=== PATIENT | female | born 1935 | race Caucasian/White ===

== ENCOUNTER 2016-09-30 19:08 | Emergency (ER) | payer MEDICARE, OTHER ==
[2016-09-30 19:34] VITALS: BP 159/85
--- NOTE | 2016-09-30 20:14 | UC ---
Cardiac HPI - HPI Summary HPI Summary: WOKE UP THIS MORNING FEELING DIZZY/LIGHTHEADED. HAS THROBBING FRONTAL JAMA, NECK PAIN, UPPER BACK PAIN AND LEFT ARM PAIN. DENIES CP. NO NAUSEA OR SOB. HAS NOT EATEN MUCH TODAY AT ALL. HAD SOME BLURRY VISION AND SWEATS INITIALLY THAT HAVE RESOLVED. - History of Current Complaint Chief Complaint: UCGeneralIllness Stated Complaint: PAIN Time Seen by Provider: 09/30/16 20:04 Hx Obtained From: Patient Onset/Duration: Sudden Onset, Lasting Hours, Still Present Timing: Constant Initial Severity: Moderate Current Severity: Moderate Pain Intensity: 5 Aggravating: Nothing Alleviating: Nothing Associated Signs & Symptoms: Positive: Vision Changes, Headaches, Dizziness, Back Pain. Negative: Chest Pain, Nausea/Vomiting - Allergy/Home Medications Allergies/Adverse Reactions: Allergies Allergy/AdvReac Type Severity Reaction Status Date / Time No Known Allergies Allergy Verified 12/12/12 11:53 Home Medications: Home Medications Cyclobenzaprine TAB* [Flexeril 10 MG TAB*] 09/30/16 [History] Diclofenac Sodium EC TAB* [Voltaren EC TAB*] 09/30/16 [History] PMH/Surg Hx/FS Hx/Imm Hx Endocrine History Of: Denies: Diabetes, Thyroid Disease, Hyperthyroidism, Hypothyroidism, Dyslipidemia Cardiovascular History Of: Denies: Cardiac Disorders, Hypertension, Pacemaker/ICD, Myocardial Infarction , Congestive Heart Failure, Atrial Fibrillation, Deep Vein Thrombosis, Bleeding Disorders Respiratory History Of: Denies: COPD, Asthma, Bronchitis, Pneumonia, Pulmonary Embolism GI/ History Of: Denies: Gastroesophageal Reflux, Ulcer, Gastrointestinal Bleed, Gall Bladder Disease, Kidney Stones, Diverticulitis, Renal Disease, Urosepsis Neurological History Of: Denies: TIA, CVA, Dementia, Seizures, Migraine Psychological History Of: Reports: Depression Denies: Anxiety, Bipolar Disorder, Schizophrenia, Post Traumatic Stress Disorder Cancer History Of: Denies: Lung Cancer, Colorectal Cancer, Breast Cancer, Prostate Cancer, Cervical Cancer Other History Of: Negative For: HIV, Hepatitis B, Hepatitis C, Anticoagulant Therapy - Surgical History Surgical History: None - Family History Known Family History: Positive: Cardiac Disease Negative: Hypertension - Social History Alcohol Use: None Substance Use Type: None Smoking Status (MU): Never Smoked Tobacco Review of Systems Constitutional: Negative Respiratory: Negative Cardiovascular: Negative Gastrointestinal: Negative Musculoskeletal: Myalgia Neurological: Headache, Other - DIZZY/LIGHTHEADED All Other Systems Reviewed And Are Negative: Yes Physical Exam Triage Information Reviewed: Yes Appearance: Well-Appearing, No Pain Distress, Well-Nourished Vital Signs: Initial Vital Signs Temp 98.1 F 09/30/16 19:26 Pulse 82 09/30/16 19:26 Resp 18 09/30/16 19:26 BP 159/85 09/30/16 19:26 Pulse Ox 96 09/30/16 19:26 Vital Signs Reviewed: Yes Eyes: Positive: Conjunctiva Clear ENT: Positive: Hearing grossly normal Neck: Positive: Supple, Nontender, No Lymphadenopathy Respiratory Exam: Normal Cardiovascular Exam: Normal Abdomen Description: Positive: Soft Musculoskeletal: Positive: No Edema Neurological: Positive: Alert Psychological: Positive: Age Appropriate Behavior Skin: Negative: rashes - Differential Diagnoses - Chest Pain Differential Diagnosis/HQI/PQRI: Acute UT, ACS, Chest Wall, Pulmonary Embolism - Clinical Impression Provider Diagnoses: DIZZY/JAMA/NECK PAIN/LEFT ARM PAIN - Physician Notifications Discussed Patient Care With: DR. PRESSLEY Time Discussed With Above Provider: 20:15 - TO [facility] BY PRIVATE CAR Discharge - Discharge Plan Condition: Stable Disposition: AGAINST MEDICAL ADVICE Referrals: Betsy Lofton MD [Primary Care Provider] -
== END 2016-09-30 20:25 | disposition left against medical advice (07) ==
LOC: UCEAST 19:08
DX: R42 Dizziness and giddiness (principal); R51 Headache; M54.2 Cervicalgia; M79.602 Pain in left arm
CPT/HCPCS: 93005; 99212; G0463

== ENCOUNTER 2016-09-30 20:42 | Emergency (ER) | payer MEDICARE, OTHER ==
[2016-09-30] MEDS ORDERED: Aspirin Low Dose CHEW TAB* 81 MG PO ONE (21:00)
[2016-09-30 21:20] LABS: Hematocrit 41 % (35-47); Hemoglobin 13.6 g/dl (12.0-16.0); Mean Corpuscular HGB Conc 33 g/dl (31-36); Mean Corpuscular Hemoglobin 29 pg (27-31); Mean Corpuscular Volume 88 fL (80-97); Mean Platelet Volume 8 um3 (7.4-10.4); Red Blood Count 4.64 10^6/ul (4.0-5.4); Red Cell Distribution Width 14 % (10.5-15); White Blood Count 7.5 10^3/ul (3.5-10.8)
--- NOTE | 2016-09-30 21:22 | ED ---
Carlos Woodson Erika, scribed for Markus Zhong MD on 09/30/16 at 2111 . Headache - HPI Summary HPI Summary: Patient is a 80-year-old female presenting to the ED with a CC of headache. Patient was sent to the ED from [facility]. Patient reports that she woke up with a headache this morning around 08:00. She states she felt well last night. She states pain was located in her head, as well as her neck, shoulders, arms, and down to her waist. Pain is described as pounding. Patient reports she was diaphoretic, and also had difficulty walking. Patient rested all day and tried taking hydrocodone and ibuprofen, which did help the pain. Pt takes hydrocodone for her postherpetic neuralgia. Currently, patient reports a slight headache and shoulder ache. - History Of Current Complaint Chief Complaint: EDHeadache Stated Complaint: HEADACHE/NECK AND LT ARM PAIN Time Seen by Provider: 09/30/16 20:54 Hx Obtained From: Patient Hx Last Menstrual Period: post menopausal Onset/Duration: Started hours ago, Still Present - much improved Currently Pain Is: Mild Allevating Factors: Medication - oxycodone and ibuprofen Associated Signs And Symptoms: Other (Noted In Comments) - diaphoresis, pain above waist to head - Allergies/Home Medications Allergies/Adverse Reactions: Allergies Allergy/AdvReac Type Severity Reaction Status Date / Time No Known Allergies Allergy Verified 09/30/16 20:50 PMH/Surg Hx/FS Hx/Imm Hx Endocrine/Hematology History: Denies: Hx Anticoagulant Therapy, Hx Diabetes, Hx Thyroid Disease Cardiovascular History: Denies: Hx Myocardial Infarction Respiratory History: Reports: Hx Seasonal Allergies History: Denies: Hx Kidney Stones, Hx Renal Disease Neurological History: Reports: Other Neuro Impairments/Disorders - Postherpetic neuralgia Denies: Hx Dementia, Hx Migraine, Hx Seizures, Hx Transient Ischemic Attacks (TIA) Psychiatric History: Reports: Hx Depression Denies: Hx Anxiety, Hx Schizophrenia, Hx Bipolar Disorder Infectious Disease History: No Infectious Disease History: Reports: Hx Shingles - treated Denies: History Other Infectious Disease, Traveled Outside the [place] in Last 30 Days - Family History Known Family History: Positive: Cardiac Disease Negative: Hypertension - Social History Alcohol Use: None Hx Substance Use: No Substance Use Type: Reports: None Hx Tobacco Use: No Smoking Status (MU): Never Smoked Tobacco Review of Systems Positive: Skin Diaphoresis Musculoskeletal: Other - reports difficulty walking Positive: Myalgia Positive: Headache All Other Systems Reviewed And Are Negative: Yes Physical Exam Triage Information Reviewed: Yes Vital Signs On Initial Exam: Initial Vitals Temp Pulse Resp BP Pulse Ox 97.7 F 74 18 159/84 100 09/30/16 20:47 09/30/16 20:47 09/30/16 20:47 09/30/16 20:47 09/30/16 20:47 Vital Signs Reviewed: Yes Appearance: Positive: Well-Appearing, No Pain Distress Skin: Positive: Warm Head/Face: Positive: Normal Head/Face Inspection. Negative: Temporal Artery Tenderness Eyes: Positive: EOMI, CLARENCE ENT: Positive: Hearing grossly normal Neck: Positive: Supple Respiratory/Lung Sounds: Positive: Clear to Auscultation, Breath Sounds Present Cardiovascular: Positive: RRR Abdomen Description: Positive: Nontender, Soft Bowel Sounds: Positive: Present Musculoskeletal: Positive: Strength/ROM Intact Neurological: Positive: Sensory/Motor Intact, Normal Gait Psychiatric: Positive: Affect/Mood Appropriate Diagnostics - Vital Signs Vital Signs Temp Pulse Resp BP Pulse Ox 09/30/16 20:47 97.7 F 74 18 159/84 100 - Laboratory Result Diagrams: 09/30/16 21:05 09/30/16 21:05 Lab Statement: Any lab studies that have been ordered have been reviewed, and results considered in the medical decision making process. - Radiology CXR Radiology Interpretation Completed By: Radiologist - IMPRESSION: FINDINGS CONSISTENT WITH COPD, NO EVIDENCE FOR ACUTE FINDING. - EKG 21:05 Cardiac Rate: NL - at 80 bpm EKG Rhythm: Sinus Rhythm Re-Evaluation - Re-Evaluation First Eval Re-Evaluation Time: 21:55 Change: Improved Comment: Discussed results. Patient will be discharged home at this time. Headache Course/Dx - Course Assessment/Plan: A 80 y/o F presents to the ED with a CC of body pain and headache. Patient's pain has significantly improved before arrival to the ED. EKG shows NSR. Blood work WNL. Patient will be discharged home with follow up from her PCP. - Diagnoses Provider Diagnoses: Muscle pain Discharge - Discharge Plan Condition: Stable Disposition: HOME Patient Education Materials: General Headache (ED), Musculoskeletal Pain (ED) Referrals: Betsy Lofton MD [Primary Care Provider] - Additional Instructions: Please follow up with your PCP The documentation as recorded by the Carlos barros Erika accurately reflects the service I personally performed and the decisions made by me, Markus Zhong MD.
[2016-09-30 21:36] LABS: Albumin 4.3 g/dL (3.2-5.2); Calcium 9.4 mg/dL (8.6-10.3); EGFR African American 94.7 (>60); EGFR Non-African American 73.6 (>60); Globulin 2.6 g/dL (2-4); Magnesium 2.3 mg/dL (1.9-2.7); Potassium 3.9 mmol/L (3.5-5.0); Total Bilirubin 0.5 mg/dL (0.2-1.0); Total Protein 6.9 g/dL (6.4-8.9)
--- NOTE | 2016-09-30 21:48 | RAD ---
INDICATION: Chest pain. COMPARISON: There are no prior studies available for comparison. TECHNIQUE: Dual-energy PA and lateral views of the chest were obtained. FINDINGS: The heart is within normal limits in size. Mediastinal and hilar contours appear within normal limits. The lungs are hyperinflated and clear. No pleural effusion or pneumothorax is seen. IMPRESSION: FINDINGS CONSISTENT WITH COPD, NO EVIDENCE FOR ACUTE FINDING.
[2016-09-30 22:29] VITALS: BP 172/80
== END 2016-09-30 22:30 | disposition home or self-care (01) ==
LOC: ED 20:42
DX: M79.1 Myalgia (principal); R51 Headache; R61 Generalized hyperhidrosis; R42 Dizziness and giddiness; M54.2 Cervicalgia; M79.602 Pain in left arm
CPT/HCPCS: 36415; 71020; 80053; 83605; 83735; 84484; 85025; 93005; 99283; A9270-GY

== ENCOUNTER 2016-10-07 09:41 | Inpatient (IN) | payer MEDICARE, OTHER ==
[2016-10-07] MEDS ORDERED: Labetalol IV* 5 MG/ML 20 ML VIAL IV PUSH ONE (10:05)
--- NOTE | 2016-10-07 10:14 | RAD ---
INDICATION: Neurologic changes COMPARISON: None TECHNIQUE: Noncontrast axial source images were acquired from the skull base to the vertex. FINDINGS: Ventricles/sulci: Cortical atrophy. Compression of the right lateral ventricle related to large intracerebral hemorrhage (see below). Small amount of intraventricular hemorrhage in the atria of the right lateral ventricle and occipital horns bilaterally. Patent basilar cisterns Brain parenchyma: 7.3 x 2.9 cm focus of intracerebral hemorrhage in the right temporal and frontal lobes with associated vasogenic edema. Small amount of adjacent subarachnoid hemorrhage. Intracranial hemorrhage: Intraventricular, subarachnoid and intracerebral hemorrhage as noted above. Extra-axial spaces: As above subarachnoid hemorrhage right cerebral hemisphere. Calvarium: There is no calvarial fracture or other calvarial abnormality. Scalp: There is no evidence of scalp or extracalvarial soft tissue abnormality. Paranasal sinuses/mastoid: The paranasal sinuses and mastoid air cells are clear. Other: None. IMPRESSION: Right intracerebral hemorrhage with associated mass effect as described. Subarachnoid and intraventricular hemorrhage is noted as well. Findings called to ED.
[2016-10-07 10:18] LABS: Hematocrit 40 % (35-47); Hemoglobin 13.2 g/dl (12.0-16.0); Mean Corpuscular HGB Conc 33 g/dl (31-36); Mean Corpuscular Hemoglobin 29 pg (27-31); Mean Corpuscular Volume 88 fL (80-97); Mean Platelet Volume 8 um3 (7.4-10.4); Red Cell Distribution Width 14 % (10.5-15); White Blood Count 12.4 10^3/ul (3.5-10.8)
[2016-10-07 10:21] LABS: Add Diff/Slide Review? Slide Review Added; Comments Flag Yes
[2016-10-07 10:33] LABS: Albumin 3.8 g/dL (3.2-5.2); BUN/Creatinine Ratio 40.3 (8-20); Calcium 9.2 mg/dL (8.6-10.3); EGFR African American 119.7 (>60); EGFR Non-African American 93.1 (>60); Globulin 2.9 g/dL (2-4); HDL Cholesterol 45.2 mg/dL; Potassium 3.1 mmol/L (3.5-5.0); Total Bilirubin 1.1 mg/dL (0.2-1.0); Total Protein 6.7 g/dL (6.4-8.9)
[2016-10-07 10:37] LABS: Troponin I 0.13 ng/mL (<0.04)
--- NOTE | 2016-10-07 10:46 | RAD ---
INDICATION: Intracranial hemorrhage COMPARISON: Chest x-ray September 30, 2016 TECHNIQUE: An AP portable view obtained at 1010 hours is submitted. FINDINGS: Bones/Soft Tissues: There are no acute bony findings. Cardiomediastinal: The heart is normal in size. There is uncoiling of the thoracic aorta. Lungs: There are no infiltrates. Pleura: There are no pleural effusions. Other: None IMPRESSION: NO ACTIVE DISEASE.
[2016-10-07] MEDS ORDERED: Mannitol 25% (12.5 GM) 50 ML* 12.5 GM/50 ML VIAL IV ONE (11:20)
[2016-10-07] MEDS ORDERED: Mannitol 25% (12.5 GM) 50 ML* 12.5 GM/50 ML VIAL ONE ×2 (11:22→13:02)
[2016-10-07] MEDS: KCL 10 MEQ/50 ML IVPREMIX* 10 MEQ/50 ML BAG IV SCH ×2 (11:58→15:29)
[2016-10-07 12:17] LABS: Urine Bacteria Absent (Absent); Urine Bilirubin Negative (Negative); Urine Glucose 1+(50 mg/dL) (Negative); Urine Nitrite Negative (Negative)
[2016-10-07] MEDS ORDERED: fentaNYL* 50 MCG/ML 2 ML VIAL (100 MCG VIAL) ONE ×3 (12:20→15:33)
[2016-10-07] MEDS ORDERED: ceFAZolin 2 GM PREMIX(*) 2 GM/50 ML BAG IVPB ONE (12:38)
[2016-10-07] MEDS ORDERED: Thrombin 5,000 UNITS* 1 APPLIC KIT - topical use - TOPICAL ONE (13:01)
[2016-10-07] MEDS ORDERED: Lidocaine 1% MPF wEPI 200,000* 30 ML SDV ONE (13:01)
[2016-10-07] MEDS ORDERED: Rocuronium* 10 MG/ML VIAL ONE ×2 (13:02→14:19)
[2016-10-07] MEDS ORDERED: Famotidine IV* 10 MG/ML 2 ML (20 mg) ONE (13:23)
[2016-10-07] MEDS ORDERED: Lidocaine 2% PF * 5 ML VIAL ONE (13:23)
[2016-10-07] MEDS ORDERED: Propofol* 10 MG/ML 20 ML BTL IV PUSH ONE ×2 (13:23→14:16)
[2016-10-07] MEDS ORDERED: Phenylephrine IV* 40 MCG/ML 10 ML SYRINGE ONE (13:32)
--- NOTE | 2016-10-07 14:36 | ED ---
Ben Woodson Janilya, scribed for Garret Scherer MD on 10/07/16 at 0950 . Neurological HPI - HPI Summary HPI Summary: A 80 y/o female was BIBA to [facility] presenting w/ a sudden onset of constant stroke-like Sx starting last night at 2200. Pt is unresponsive and non-verbal. Per EMS, her stated that there is also left sided weakness, but otherwise pt is normally healthy. Pt although had shingles last week. LEVEL 5 CAVEAT UNABLE TO OBTAIN FULL HX DUE TO UNRESPONSIVE STATE OF PT. - History of Current Complaint Stated Complaint: STROKE LIKE SYMPTOMS Hx Obtained From: EMS Hx Last Menstrual Period: post menopausal Onset/Duration: Gradual Onset, Started hours ago - since yesterday at 2200 Timing: Constant Onset Severity: Moderate Current Severity: Moderate Aggravating: Nothing Alleviating: Nothing - Allergy/Home Medications Allergies/Adverse Reactions: Allergies Allergy/AdvReac Type Severity Reaction Status Date / Time No Known Allergies Allergy Verified 09/30/16 20:50 PMH/Surg Hx/FS Hx/Imm Hx Previously Healthy: Yes Endocrine/Hematology History: Denies: Hx Anticoagulant Therapy, Hx Diabetes, Hx Thyroid Disease Cardiovascular History: Denies: Hx Congestive Heart Failure, Hx Deep Vein Thrombosis, Hx Hypertension , Hx Myocardial Infarction, Hx Pacemaker/ICD Respiratory History: Reports: Hx Seasonal Allergies Denies: Hx Asthma, Hx Chronic Obstructive Pulmonary Disease (COPD), Hx Lung Cancer, Hx Pneumonia, Hx Pulmonary Embolism GI History: Denies: Hx Gall Bladder Disease, Hx Gastrointestinal Bleed, Hx Ulcer, Hx Urosepsis History: Denies: Hx Kidney Stones, Hx Renal Disease Neurological History: Reports: Other Neuro Impairments/Disorders - Postherpetic neuralgia Denies: Hx Dementia, Hx Migraine, Hx Seizures, Hx Transient Ischemic Attacks (TIA) Psychiatric History: Reports: Hx Depression Denies: Hx Anxiety, Hx Schizophrenia, Hx Bipolar Disorder Infectious Disease History: Reports: Hx Shingles - treated Denies: History Other Infectious Disease - Family History Known Family History: Positive: Cardiac Disease Negative: Hypertension - Social History Lives: With Family Alcohol Use: None Hx Substance Use: No Substance Use Type: Reports: None Hx Tobacco Use: No Smoking Status (MU): Never Smoked Tobacco Review of Systems - ROS Summary Review of Systems Summary: LEVEL 5 CAVEAT UNABLE TO OBTAIN FULL HX DUE TO UNRESPONSIVE STATE OF PT. Neurological: Other - unresponsive and non-verbal Positive: Weakness - left sided All Other Systems Reviewed And Are Negative: Yes Physical Exam - Summary Physical Exam Summary: Vital signs: reviewed General: Patient BIB EMS. Patient is non verbal. Patient does not respond to verbal commands. HEENT: PERRLA Lungs: CTA B/L CVS: S1 & S2 present. No murmurs appreciated. ABDOMEN: Soft, non distended. Bowel sounds present. EXTREMITIES: No edema, no cyanosis or clubbing. NEURO: non responsive, non verbal. NIH is 23. SKIN: Dry and warm Triage Information Reviewed: Yes Vital Signs Reviewed: Yes Diagnostics - Laboratory Result Diagrams: 10/07/16 09:41 10/07/16 09:41 Lab Statement: Any lab studies that have been ordered have been reviewed, and results considered in the medical decision making process. - Radiology CXR Xray Interpretation: No Acute Changes - IMPRESSION: No active disease. Radiology Interpretation Completed By: Radiologist - CT brain CT Interpretation: Positive (See Comments) - IMPRESSION: Right intracerebral hemorrhage with associated mass effect as described. Subarachnoid and intraventricular hemorrhage is noted as well. CT Interpretation Completed By: Radiologist - EKG 0935 Cardiac Rate: NL - 73 bpm EKG Rhythm: Sinus Rhythm ST Segment: Normal Ectopy: PVCs 0945 Cardiac Rate: NL - 74 bpm EKG Rhythm: Sinus Rhythm ST Segment: Normal NIH Scale - NIH Scale Level of Consciousness: Repeated or Painful Stimulation Ask Patient the Month and His/Her Age: Neither Correct/Aphasic Ask Pt to Open/Close Eyes and Manager Electrical/Release Non-Paretic Hand: Neither Correctly Best Gaze (Only Horizontal Eye Movement): Normal Visual Field Testing: No Visual Loss Facial Paresis-Pt to Smile & Close Eyes or Grimace Symmetry: Normal/Symmetrical Motor Function - Right Arm: No Drift-Holds 10 Seconds Motor Function - Left Arm: No Effort Against [place] Motor Function - Right Leg: No Drift-Holds 10 Seconds Motor Function - Left Leg: No Effort Against [place] Limb Ataxia-Must be out of Proportion to Weakness Present: Present in Two Limbs Sensory (Use Pinprick to Test Arms/Legs/Trunk/Face): Severe to Total Loss Best Language (Describe Picture, Name Items): Mute/Global Aphasia Dysarthria (Read Several Words): Unintelligible or Mute Extinction and Inattention: Profound Stephan-Inattention Total Score: 23 Course/Dx - Course Assessment/Plan: A 80 y/o female was BIBA to [facility] presenting w/ a sudden onset of constant stroke-like Sx starting last night at 2200. Pt is unresponsive and non-verbal. Per EMS, her stated that there is also left sided weakness , but otherwise pt is normally healthy. Pt although had shingles last week. LEVEL 5 CAVEAT UNABLE TO OBTAIN FULL HX DUE TO UNRESPONSIVE STATE OF PT. Initially we obtained a IV access and immediately patient was send to Head CT. Patient is unresponsive but and BP is 182/[address] showed a Hemorrhagic bleed. IMPRESSION: Right intracerebral hemorrhage with associated mass effect as described. Subarachnoid and intraventricular hemorrhage is noted as well. He was given Labetalol to decrease BP. Blood pressure right now is 128/55. Patient is maintaining her airway to this point. Dr. Cabrera is discussing with patients prognosis and decision to intubate or not. Blood work shows an increase in WBCs of 12.4, Na 131, K 3.1, troponin 0.13. EKG with NSR at 74 BPM, Q waves in III and AVF. Hyperacute T waves. Dr. Cabrera order Mannitol. I discuss my physical exam, findings and test results with Dr. Jones from the hospitalist services and she agrees to admit patient to his services. Patient is hemodynamically stable alert and oriented x 3. Dr. Cabrera is taking patient to the OR for further management. He request for the patient to be intubated in the OR. Patient still hemodynamically stable but still unresponsive. - Differential Dx Differential Diagnoses Neuro: Positive: Cerebrovascular Accident, Contusion, Encephalitis, Hypertension, Seizure Disorder, Transient Ischemic Attack - Diagnoses Provider Diagnoses: Hemorrhagic cerebrovascular accident (CVA), Uncontrolled hypertension - Physician Notifications Discussed Care of Patient With: Dr. Cabrera (neuro surg) at 1020: discussed brain CT results and next course of action. Dr. Jones (hospitalist) at 1058: agrees to admit pt into hospital. Discharge - Discharge Plan Condition: Guarded Disposition: ADMITTED TO [facility] Referrals: Betsy Lofton MD [Primary Care Provider] - The documentation as recorded by the Ben barros Janilya accurately reflects the service I personally performed and the decisions made by me, Garret Scherer MD.
[2016-10-07] MEDS ORDERED: Propofol* 100 ML ONE (14:50)
[2016-10-07] MEDS ORDERED: hydrALAZINE IV* 20 MG/ML VIAL IV SLOW PU ONE (14:51)
[2016-10-07] MEDS ORDERED: Ondansetron INJ* 2 MG/ML VIAL IV PRN (14:58)
[2016-10-07] MEDS ORDERED: Sodium Chloride 3% HYPERTONIC* 500 ML IVPB SCH (15:00)
[2016-10-07] MEDS ORDERED: hydrALAZINE IV* 20 MG/ML VIAL ONE (15:17)
[2016-10-07] MEDS: niCARdipine 0.1MG/ML IVPREMIX* 20 MG/200 ML BAG IV SCH ×2 (15:30→20:26)
--- NOTE | 2016-10-07 15:55 | PN ---
Progress Note - Progress Note Note: CRITICAL CARE MEDICINE PROCEDURE NOTE DATE: 10/07/16 TIME: 1500 SERVICE: Critical Care Medicine LOCATION OF PROCEDURE: ICU PROCEDURE: Central line insertion PROCEDURALIST: Pattie Leary Consent obtain: Yes (pts Duy Soriano gave verbal consent) Time out held: Yes INDICATION: ICH, intubated needing hypertonic saline and access. PROCEDURE: Oxygenation maintained and vitals monitored. Patient in supine position at 10 degrees. Pre-medication already post OR. SITE: LEFT Subclavian Site preparation with chlorhexidine locally. Full sterile drape, gown, hat, mask, gloves. 5ml 1% Lidocaine utilized at incision site. Standard sterile Seldinger technique utilized via ultrasound guidance and catheter was inserted to 16cm and sutured in place. Good blood return. Minimal blood loss. Site dressed with tegaderm. Portable chest x-ray pending. Patient otherwise tolerated well. Dr. Faust performed the procedure, I was present and participated in the critical portions. [place] Blankenship, DO
--- NOTE | 2016-10-07 16:18 | PN ---
Progress Note - Progress Note Note: CRITICAL CARE MEDICINE DATE: 10/07/16 TIME: 1430 REFERRING PROVIDER: Rick REASON/CHIEF COMPLAINT: post crani and clot evac sec to ich HISTORY OF PRESENT ILLNESS: 80 F with little medical history with c/o padilla and less responsiveness last pm and and then worse this am. Recently eval for padilla. on felxeril, diclofenac, vicodin per records. Presenting to ED with cva sx, head ct with large R ICH associated mass affect, sah, ivh and taken urgently to the OR for evac. Given mannitol and anai placed. Torrey procedure well. Noted high BP on arrival and through much of procedure getting intermittent tx. In ICU post ICP ~5-6. Sedated. Received recent paralytic. sync with vent. pupils reactive. REVIEW OF SYSTEMS: As per HPI. PAST MEDICAL HISTORY: As per HPI. MEDICATIONS: Reviewed, but unconfirmed. ALLERGIES: NKDA SOCIAL HISTORY: Reviewed. lives with . active. FAMILY HISTORY: Noncontributory at present. PHYSICAL EXAM: Vital Signs: Reviewed. Neurologic: as above. post paralytics now. HEENT: anicteric. ett in place. Cardiovascular: S1, S2 lakes[place] Respiratory: coarse but clear bl; tv 450; fio2 50% Abdomen: soft. nt Extremities: warm Access: piv LABS: Reviewed. IMAGING: Reviewed. MEDICATIONS: Reviewed. ASSESSMENT: 80 F Acute ICH - ?htn vs amyloid angiopathy. Htn now Mild elevated troponin - may be central related Post op, non-thoracic, resp failure PLAN: Neurologic: keep sedated overnight with propofol. follow neuro checks and can hold prop for these entities. prn low dose fent. nsgy f/u. ct f/u. Place on 3% as she is already hypoNa and would like to see this come up to 140s overnight and may push up to much above upper limit normal depending on neuro exam and ct in this early phase. Received mannitol already pre-or and would prefer 3% use as needed and reserve mannitol. Would like HOB 30 degrees Cardiovascular: look to control BP better to avoid any re-bleeds. Start cardene gtt and maintain SBP <140, greater then 100. if requires a lot of prop or cardene, can add hydralazine prn and consider po needs, +/- precedex. would obtain echo for her cva workup all the same. Respiratory: maintained on ventilation and allow paralytics to dissipate and spont breathing as able. etco2. may need abg if not triggering. may take a day or so to determine liberation potentials Gastrointestinal: ogt. sup. start tf tomorrow depending on her dynamics. Renal/Metabolic: ziegler. Na as above. Infectious Disease: no needs Hematology: f/u cbc. scds, no chemical prophylaxis yet Endocrine: f/u glu Musculoskeletal: will need pt when participating. Psych/Social: updated. social work eval Supportive and preventative care as ordered. SUP: ppi VTE prophylaxis: scds; ich Ziegler catheter given critical illness, monitoring needs for accurate assessment of COLBY and KDIGO criteria for critically ill patients and to avoid potential harms of urinary retention, skin breakdown/ulcers. Disposition: ICU Code Status: Full Critical Care Time: 65min, excl procedures D/w Dr. Rick Blankenship, DO
[2016-10-07] MEDS ORDERED: NS 0.9% 1000 ML* 1,000 ML IV SCH (16:30)
[2016-10-07] MEDS ORDERED: fentaNYL* 50 MCG/ML 2 ML VIAL (100 MCG VIAL) IV SLOW PU ONE (16:30)
--- NOTE | 2016-10-07 16:46 | RAD ---
INDICATION: Left central line placement COMPARISON: [id number] TECHNIQUE: An AP supine portable view obtained at 1627 hours is submitted. FINDINGS: Bones/Soft Tissues: There are no acute bony findings. There is an endotracheal tube in satisfactory position. Nasogastric tube passes normally through the mediastinum. There is a left subclavian catheter in the superior vena cava near the brachiocephalic confluence Cardiomediastinal: The cardiomediastinal silhouette is normal. Lungs: There are no infiltrates. There is no pneumothorax. Pleura: There are no pleural effusions. Other: None IMPRESSION: TUBES AND CATHETERS POSITIONED DESCRIBED
[2016-10-07] MEDS: Chlorhexidine MOUTHWASH 0.12%* 15 ML UDC TOPICAL SCH ×3 (17:30→20:26)
[2016-10-07] MEDS: Propofol* 100 ML IV SCH ×2 (18:48→23:29)
[2016-10-07] MEDS: fentaNYL* 50 MCG/ML 2 ML VIAL (100 MCG VIAL) IV SLOW PU PRN ×2 (21:04→23:30)
[2016-10-07 22:12] LABS: Troponin I 0.05 ng/mL (<0.04)
[2016-10-07] MEDS ORDERED: Sodium Chloride 3% HYPERTONIC* 500 ML IVPB ONE (23:30)
[2016-10-08] MEDS: niCARdipine 0.1MG/ML IVPREMIX* 20 MG/200 ML BAG IV SCH ×8 (00:54→23:16)
[2016-10-08] MEDS: Chlorhexidine MOUTHWASH 0.12%* 15 ML UDC TOPICAL SCH ×6 (01:30→22:10)
[2016-10-08] MEDS: Acetaminophen ADULT LIQ* 650 MG/20.3 ML UDC PO PRN ×2 (02:29→15:49)
[2016-10-08] MEDS: Propofol* 100 ML IV SCH ×3 (03:08→20:47)
[2016-10-08 05:19] LABS: Hematocrit 30 % (35-47); Hemoglobin 10.6 g/dl (12.0-16.0); Mean Corpuscular HGB Conc 35 g/dl (31-36); Mean Corpuscular Hemoglobin 30 pg (27-31); Mean Corpuscular Volume 87 fL (80-97); Mean Platelet Volume 7 um3 (7.4-10.4); Red Blood Count 3.49 10^6/ul (4.0-5.4); Red Cell Distribution Width 14 % (10.5-15); White Blood Count 9.4 10^3/ul (3.5-10.8)
[2016-10-08] MEDS: fentaNYL* 50 MCG/ML 2 ML VIAL (100 MCG VIAL) IV SLOW PU PRN ×2 (05:22→20:32)
[2016-10-08 05:38] LABS: BUN/Creatinine Ratio 40.4 (8-20); Calcium 8.1 mg/dL (8.6-10.3); EGFR African American 164.8 (>60); EGFR Non-African American 128.2 (>60); Phosphorus 1.9 mg/dL (2.5-5.0); Potassium 2.9 mmol/L (3.5-5.0)
[2016-10-08 05:44] LABS: Troponin I 0.04 ng/mL (<0.04)
--- NOTE | 2016-10-08 06:12 | RAD ---
INDICATION: Follow-up of right frontal craniotomy for intracerebral hemorrhage. COMPARISON: CT brain October 07, 2016 TECHNIQUE: Noncontrast axial source images were acquired from the skull base to the vertex. FINDINGS: Ventricles/sulci: The compression of the right lateral ventricle has resolved post hematoma evacuation. Brain parenchyma: Interval evacuation of large right intracerebral hematoma. Small amount of residual hemorrhage. Drainage catheter within residual collection. Small amount of pneumocephalus. There is no significant subcutaneous falcine shift. There is localized mass effect with sulcal effacement in the right cerebral hemisphere. Intracranial hemorrhage: As above, small amount of residual intracerebral hemorrhage. Extra-axial spaces: There are no abnormal extra axial fluid collections or evidence of extra-axial mass. Calvarium: Right frontal calvarial defect. Scalp: There is no evidence of scalp or extracalvarial soft tissue abnormality. Paranasal sinuses/mastoid: The paranasal sinuses and mastoid air cells are clear. Other: None. IMPRESSION: Evacuation of right cerebral intraparenchymal hematoma with placement of drainage catheter. Small amount of residual hemorrhage and pneumocephalus.. Marked reduction in mass effect.
[2016-10-08] MEDS: KCL 20 MEQ/100 ML IVPREMIX* 20 MEQ/100 ML BAG IV SCH ×2 (07:56→09:40)
[2016-10-08] MEDS: Lansoprazole SOLUTAB* 30 MG G TUBE SCH (09:24)
--- NOTE | 2016-10-08 09:25 | ECHO ---
Patient: SAM WIGGINS [facility] Rec#: [id number] : 1935 Date: 10/08/2016 Age: 80y Height: 167.6 cm / 66.0 in Weight: 61.2 kg / 134.9 lbs Sex: F BSA: 1.7 Room#: ICU 3 Admit Date#: 10/07/2016 Type: Inpatient Referring: Domingo Blankenship Reading: Rad Padilla MD Fur Comber: Radha Mccrary RN RDCS CC: Betsy Lofton MD Transthoracic Echocardiogram Indication: Hemorrhagic CVA, elevated troponin levels BP: 120/55 HR: 71 Rhythm: NSR with PVCs Findings History: Recent Shingles, post-herpetic neuralgia, currently admitted with large right ICH S/P evacuation in the OR. The patient is on mechanical ventilation and a Cardene drip during the echo exam. Technical Comments: The study was technically limited due to the patient's inability to lay in the left lateral decubitus position. The study is technically limited due to patient being intubated and on a ventilator. Completed at 0910. Left Ventricle: The left ventricular chamber size is decreased. Mild concentric left ventricular hypertrophy is observed. There is a prominent septal knuckle. Global left ventricular wall motion and contractility are within normal limits. The left ventricle appears hyperdynamic. The estimated ejection fraction is greater than 65%. There is an E to A reversal in the mitral valve flow pattern suggestive of diastolic dysfunction. Left Atrium: The left atrial chamber size is normal. Right Ventricle: The right ventricular chamber size and systolic function are within normal limits. The right ventricle wall thickness is mildly increased. Right Atrium: The right atrial cavity size is normal. There is evidence of an atrial septal aneurysm. No PFO noted on color flow interrogation. Aortic Valve: The aortic valve structure is not well visualized. The aortic valve leaflets are mildly thickened. There is no evidence of aortic regurgitation. There is no evidence of aortic stenosis. Mitral Valve: The mitral valve leaflets are mildly thickened. There is a trace of mitral regurgitation. Tricuspid Valve: The tricuspid valve leaflets are normal. There is mild to moderate tricuspid regurgitation. There is evidence of mild to moderate pulmonary hypertension. Pulmonic Valve: The pulmonic valve structure is not well visualized. There is no evidence of pulmonic regurgitation. There is no pulmonic stenosis. Pericardium: There is no significant pericardial effusion. A pericardial fat pad is visualized. Aorta: There is no dilatation of the ascending aorta. There is no dilatation of the aortic arch. The aortic root is normal in size. Pulmonary Artery: The main pulmonary artery is not well visualized. Venous: Unable to accurately comment on the size collapsibility of the IVC as the patient in known to be on mechanical ventilation. Conclusions The left ventricle appears hyperdynamic. The estimated ejection fraction is greater than 65%. Global left ventricular wall motion and contractility are within normal limits. The left ventricular chamber size is decreased. Mild concentric left ventricular hypertrophy is observed. There is an E to A reversal in the mitral valve flow pattern suggestive of diastolic dysfunction. There is mild to moderate tricuspid regurgitation. There is evidence of mild to moderate pulmonary hypertension. There is no prior echocardiogram available to compare with at this time. Measurements Name Value Normal Range RVDdMajor (2D) 3.1 cm (2.2 - 4.4) RVAW (2D) 0.7 cm (0.2 - 0.5) RAd ISD 4CH 4 cm (3.4 - 4.9) RA (A4C)W 3.4 cm (2.9 - 4.6) IVSd (2D) 1.3 cm (0.6 - 1) LVPWd (2D) 1.1 cm (0.6 - 1) LVIDd (2D) 3.4 cm (3.6 - 5.4) Aortic Annulus 2.6 cm (1.4 - 2.6) Ao root diameter (2D) 3.1 cm (2.1 - 3.5) Ascending Ao 3 cm (2.1 - 3.4) Aortic arch 2.4 cm (1.8 - 3.4) LA dimension (AP) 2D 3.1 cm (2.3 - 3.8) LAd ISD 4CH 4.5 cm (2.9 - 5.3) LA ISD 4CH W 3.2 cm (2.5 - 4.5) Name Value Normal Range LA ESV SP 4CH (A/L) 39 ml - LA ESV SP 2CH (A/L) 32 ml - LA ESV BP (A/L) 36 ml - LA ESV BP (A/L) index 21.2 ml/m2 - LA ESV SP 4CH (MOD) 37 ml - LA ESV SP 2CH (MOD) 29 ml - Name Value Normal Range MV E-wave Vmax 0.76 m/sec - MV deceleration time 311 msec - MV A-wave Vmax 1.2 m/sec - MV E:A ratio 0.7 ratio - LV septal e' Vmax 0.06 m/sec - LV lateral e' Vmax 0.06 m/sec - LV E:e' septal ratio 12.7 ratio - LV E:e' lateral ratio 12.7 ratio - Name Value Normal Range AV Vmax 1.8 m/sec - AV VTI 37.2 cm - AV peak gradient 13 mmHg - AV mean gradient 9 mmHg - LVOT Vmax 1.3 m/sec - LVOT VTI 29.8 cm - LVOT peak gradient 7 mmHg - LVOT mean gradient 5 mmHg - EDNA Vmax 0.85 m/sec - Name Value Normal Range TR Vmax 2.9 m/sec - TR peak gradient 34 mmHg - RAP 8 mmHg - RVSP 42 mmHg - IVC diameter 2 cm - Name Value Normal Range PV Vmax 1.1 m/sec -
[2016-10-08] MEDS ORDERED: Potassium Phosphate IV* 20 MMOLE in NS 0.9% 250 ML* 250 ML IVPB ONE (09:26)
--- NOTE | 2016-10-08 09:46 | PN ---
Progress Note - Progress Note SOAP: Subjective: []POD # 1 Intubated,on diprivan ICP running 10-14 this am Objective: []F/U CT shows ventricles larger,good clot decompression Withdraws to pain Pupils equal Assessment: []Stable post op Plan: []Could likely wean and extubate Will need to follow ICP If it trends upward she may need ventricular drain Discussed with Dr. Vanessa
[2016-10-08] MEDS ORDERED: Sodium Chloride 3% HYPERTONIC* 500 ML IVPB SCH ×2 (10:30→14:51)
--- NOTE | 2016-10-08 11:12 | PN ---
Progress Note - Progress Note Note: CRITICAL CARE MEDICINE DATE: 10/08/16 TIME: 850 SUBJECTIVE: Patient seen and examined. PHYSICAL EXAM: Vital Signs: Reviewed. Neurologic: Propofol held and slow to wake up. withdrawal to pain and starting to move R side more. not opening eyes yet. pupils eq and reactive. HEENT: anicteric. ett in place. Cardiovascular: S1, S2 Respiratory: coarse. changed to cpap Abdomen: soft. nt Extremities: warm Access: piv LABS: Reviewed. IMAGING: Reviewed. MEDICATIONS: Reviewed. ASSESSMENT: 80 F Acute ICH - ?htn vs amyloid angiopathy. HTN Post op, non-thoracic, resp failure PLAN: Neurologic: CT reviewed - improved. d/w nsgy. prop held. await better neuro eval prior to vent liberation. keep 3%. if neuro exam stable would just aim for high normal na range. 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 keep hob 30degrees. Cardiovascular: cardene gtt still to maintain SBP <140, greater then 100. see what she requires after vent liberation. tte ok. troponin benign. Respiratory: cpap. needs to find her tongue prior to liberation. mechanics otherwise well. Gastrointestinal: ogt. sup. start tf later today if unable to liberate. Renal/Metabolic: ziegler. Na as above. Infectious Disease: no needs Hematology: f/u cbc. scds, no chemical prophylaxis yet Endocrine: f/u glu Musculoskeletal: pt when participating. Psych/Social: will look to update . Supportive and preventative care as ordered. SUP: ppi VTE prophylaxis: scds; ich Ziegler catheter given critical illness, monitoring needs for accurate assessment of COLBY and KDIGO criteria for critically ill patients and to avoid potential harms of urinary retention, skin breakdown/ulcers. Disposition: ICU Code Status: Full Critical Care Time: 35min D/w Dr. Rick Blankenship DO
--- NOTE | 2016-10-08 14:34 | PN ---
Progress Note - Progress Note Note: CRITICAL CARE MEDICINE DATE: 10/08/16 TIME: 1425 Slow to come around off sedation all day, but she is improving. Starting to follow commands on her R sided. Not moving left. Difficulty keeping her eyes open. ICP have been well. Family updated earlier on plans. Still pre-mature to liberate from vent today. Continued lyte correction, BP control and should hopefully be ready for early liberation tomorrow am. tf today. Code Status: Full Critical Care Time: 10min FLoree Blankenship DO
[2016-10-09] MEDS: Acetaminophen ADULT LIQ* 650 MG/20.3 ML UDC PO PRN ×2 (01:25→21:45)
[2016-10-09] MEDS: niCARdipine 0.1MG/ML IVPREMIX* 20 MG/200 ML BAG IV SCH ×5 (02:05→21:34)
[2016-10-09] MEDS: Chlorhexidine MOUTHWASH 0.12%* 15 ML UDC TOPICAL SCH ×3 (02:07→10:03)
[2016-10-09 05:34] LABS: Hematocrit 29 % (35-47); Mean Corpuscular HGB Conc 34 g/dl (31-36); Mean Corpuscular Hemoglobin 30 pg (27-31); Mean Corpuscular Volume 88 fL (80-97); Mean Platelet Volume 7 um3 (7.4-10.4); Red Blood Count 3.35 10^6/ul (4.0-5.4); Red Cell Distribution Width 14 % (10.5-15); White Blood Count 10.7 10^3/ul (3.5-10.8)
[2016-10-09 05:57] LABS: BUN/Creatinine Ratio 25.9 (8-20); Calcium 8.3 mg/dL (8.6-10.3); EGFR African American 140.4 (>60); EGFR Non-African American 109.2 (>60); Magnesium 2.1 mg/dL (1.9-2.7); Phosphorus 2.5 mg/dL (2.5-5.0)
[2016-10-09] MEDS: Propofol* 100 ML IV SCH ×2 (06:12→22:43)
--- NOTE | 2016-10-09 07:54 | PN ---
Progress Note - Progress Note SOAP: Subjective: []POD#2 More alert Moving right side well Minimal movement on left Objective: []Left hemiparesis ICP remaining down Pupils equal Assessment: []Stable post op Plan: []Hopefully extubated this AM Will get f/u CT in AM
[2016-10-09] MEDS: Lansoprazole SOLUTAB* 30 MG G TUBE SCH (08:26)
[2016-10-09] MEDS ORDERED: Potassium Chloride LIQUID* 20 MEQ PACKET G TUBE ONE (09:32)
[2016-10-09] MEDS: KCL 20 MEQ/100 ML IVPREMIX* 20 MEQ/100 ML BAG IV SCH ×2 (09:54→11:36)
[2016-10-09] MEDS ORDERED: Furosemide IV* 10 MG/ML 2 ML VIAL (20 MG) IV SLOW PU ONE (12:30)
--- NOTE | 2016-10-09 12:55 | PN ---
Progress Note - Progress Note Note: CRITICAL CARE MEDICINE DATE: 10/09/16 TIME: 800 SUBJECTIVE: Patient seen and examined. PHYSICAL EXAM: Vital Signs: Reviewed. Neurologic: off Propofol and starting to awaken to follow commands with R side. HEENT: anicteric. ett in place. Cardiovascular: S1, S2 Respiratory: coarse. changed to cpap Abdomen: soft. nt Extremities: warm Access: piv LABS: Reviewed. IMAGING: Reviewed. MEDICATIONS: Reviewed. ASSESSMENT: 80 F Acute ICH - ?htn vs amyloid angiopathy. HTN Post op, non-thoracic, resp failure PLAN: Neurologic: CT reviewed - improved. d/w nsgy. prop held. off 3%, high normal na range. As neuro exam improves this am and she can find her tongue we will look to liberate. icp well. keep hob 30 degrees. Cardiovascular: cardene gtt to maintain SBP <140. hopefully post liberation she will improve bp vs look to po needs etc. Respiratory: cpap. again looking to liberation. mechanics otherwise well. Gastrointestinal: ogt. tf held. swallow later today. Renal/Metabolic: ziegler. Na as above. Infectious Disease: no needs Hematology: f/u cbc. scds, no chemical prophylaxis yet Endocrine: f/u glu Musculoskeletal: pt when participating. Psych/Social: will look to update . Supportive and preventative care as ordered. SUP: ppi VTE prophylaxis: scds; ich Ziegler catheter given critical illness, monitoring needs for accurate assessment of COLBY and KDIGO criteria for critically ill patients and to avoid potential harms of urinary retention, skin breakdown/ulcers. Disposition: ICU Code Status: Full Critical Care Time: 35min [place] Blankenship DO
[2016-10-09] MEDS: Albuterol 2.5 MG/3 ML NEB.SOL* (0.083%) INH PRN (13:13)
[2016-10-09] MEDS: fentaNYL* 50 MCG/ML 2 ML VIAL (100 MCG VIAL) IV SLOW PU PRN ×2 (13:51→21:45)
[2016-10-09] MEDS ORDERED: Propofol* 100 ML ONE (15:00)
[2016-10-09] MEDS ORDERED: fentaNYL* 50 MCG/ML 2 ML VIAL (100 MCG VIAL) ONE (15:00)
[2016-10-09] MEDS ORDERED: Propofol* 10 MG/ML 20 ML BTL IV PUSH ONE (15:05)
[2016-10-09] MEDS ORDERED: fentaNYL* 50 MCG/ML 5 ML VIAL (250 MCG VIAL) ONE (15:05)
--- NOTE | 2016-10-09 15:29 | PN ---
Progress Note - Progress Note Note: CRITICAL CARE MEDICINE PROCEDURE NOTE DATE: 10/09/16 TIME: 1500 SERVICE: Critical Care Medicine LOCATION OF PROCEDURE: ICU PROCEDURE: Endotracheal intubation PROCEDURALIST: Dr. Blankenship Consent obtain: No, procedure performed emergently Time out held: Not indicated INDICATION: Acute respiratory failure. Pt liberated this am. Rapid shallow breathing pattern. Poor couch. No expectorant. Placed on high flow and unable to equilibrate ventilation. Remained with high rates. oxygen maintained. Hr low 100s. Metaneb to no avail. Re-intubated. Would plan another 24-48h ventilation and re-try. PROCEDURE: Oxygenation maintained and vitals monitored. Patient in supine position. Pre-medication with fentanyl 100mcg pre and post / propofol 100mg. Glidescope #3 inserted with Grade 1 view obtained. 7.5 endotracheal tube inserted to 22cm lip. Good chest rise with breath sounds appreciated in bilaterally lung rodriguez. EtCO2 + color change. Portable chest x-ray pending. Patient otherwise tolerated well. Called to update and no answer. Chico Blankenship,
--- NOTE | 2016-10-09 16:38 | RAD ---
INDICATION: Status post intubation. COMPARISON: Comparison is made with a prior chest x-ray study from October 07, 2016. TECHNIQUE: A portable view of the chest was obtained. FINDINGS: The patient is status post intubation. The endotracheal tube tip appears low in position approximately 1 cm above the rubens. There is a central venous catheter present entering on the left side. The catheter tip projects in the right paratracheal region. There is a nasogastric tube which demonstrates normal course. The heart is within normal limits in size. The lungs are underinflated. There is mild prominence of the interstitial markings which are unchanged. No focal infiltrate or pleural effusion is seen. IMPRESSION: STATUS POST INTUBATION THE ENDOTRACHEAL TUBE IS SLIGHTLY LOW IN POSITION, RECOMMEND REPOSITIONING.
[2016-10-10] MEDS: niCARdipine 0.1MG/ML IVPREMIX* 20 MG/200 ML BAG IV SCH ×5 (01:34→23:20)
[2016-10-10] MEDS ORDERED: Metoprolol Tartrate IV* 1 MG/ML 5 ML VIAL IV ONE (05:20)
[2016-10-10] MEDS ORDERED: Metoprolol Tartrate IV* 1 MG/ML 5 ML VIAL ONE (05:24)
--- NOTE | 2016-10-10 05:26 | PN ---
Progress Note - Progress Note Note: Nursing reporting brief bursts of SVT off nicardipene GTT. Pressures 120-130s. Will give 2.5mg metoprolol IV x1 & continue to monitor.
[2016-10-10] MEDS: Propofol* 100 ML IV SCH ×4 (06:12→23:30)
--- NOTE | 2016-10-10 09:04 | RAD ---
HISTORY: Follow-up subdural COMPARISONS: October 08, 2016 TECHNIQUE: Multiple contiguous axial CT scans were obtained of the head without intravenous contrast. FINDINGS: HEMORRHAGE/INFARCT: Again noted is the residual of an intraparenchymal hematoma of the right frontal and temporal lobes. There is a small amount of residual blood. A drainage catheter is noted. Elsewhere, there is no hemorrhage or acute infarct. MASSES/SHIFT: There is no mass or shift. EXTRA-AXIAL SPACES: There are no extra-axial fluid collections. SULCI AND VENTRICLES: There is a small amount of intraventricular hemorrhage. There is trace ventriculomegaly, stable. CEREBRUM: As noted above, there is vasogenic edema with small amount of residual blood in the right frontal and temporal lobes consistent with the residua of intraparenchymal hematoma with a drainage catheter. This is similar to the previous examination. BRAINSTEM: There are no focal parenchymal abnormalities. CEREBELLUM: There are no focal parenchymal abnormalities. VESSELS: The vessels are grossly normal. PARANASAL SINUSES: The paranasal sinuses are clear. ORBITS: The orbits are unremarkable. BONES AND SOFT TISSUE: There is postsurgical change to the right frontal skull OTHER: None IMPRESSION: 1. STABLE RESIDUA OF A RIGHT FRONTOTEMPORAL INTRAPARENCHYMAL HEMATOMA WITH ASSOCIATED VASOGENIC EDEMA AND A SMALL AMOUNT OF RESIDUAL BLOOD, AND DRAINAGE CATHETER. 2. SMALL AMOUNT OF INTRAVENTRICULAR HEMORRHAGE WITH STABLE TRACE VENTRICULOMEGALY
--- NOTE | 2016-10-10 09:07 | PN ---
Progress Note - Progress Note SOAP: Subjective: [S/p craniotomy for ICH evacuation. POD # 3. Movement of right side remains good. Movement of left upper extremity is minimal. ] Objective: [ Vital Signs: Temp Pulse Resp BP Pulse Ox 100.7 F 75 19 130/60 100 10/10/16 08:00 10/10/16 08:00 10/10/16 08:00 10/10/16 08:00 10/10/16 08:00 General: Mildly restless. Withdraws to pain. Neuro: Right side movement increasing. Left hemiparesis. ICP remained down. Incision: Intact with sari. PAPA drain removed today. ICP monitor removed today. PAPA drain output 10/07/16 10/08/16 10/08/16 21:37 04:22 22:00 Output, PAPA #1 45 50 5 10/09/16 10/09/16 10/10/16 06:00 14:00 06:00 Output, PAPA #1 3 3 5 ] Assessment: [Stable post op. CT this morning is unchanged. Extubation attempted yesterday without success. ] Plan: [1. Continue to monitor neuro. 2. Mesh Man following. ]
[2016-10-10 09:19] LABS: BUN/Creatinine Ratio 39.6 (8-20); Calcium 8.5 mg/dL (8.6-10.3); EGFR African American 160.9 (>60); EGFR Non-African American 125.1 (>60); Magnesium 2.1 mg/dL (1.9-2.7); Phosphorus 2.4 mg/dL (2.5-5.0); Potassium 3.5 mmol/L (3.5-5.0)
[2016-10-10] MEDS ORDERED: Potassium Chloride LIQUID* 20 MEQ PACKET G TUBE ONE (10:04)
[2016-10-10] MEDS: amLODIPine TAB* 5 MG G TUBE SCH (10:39)
[2016-10-10] MEDS: Chlorhexidine MOUTHWASH 0.12%* 15 ML UDC TOPICAL SCH ×4 (10:39→22:46)
[2016-10-10] MEDS: Lansoprazole SOLUTAB* 30 MG G TUBE SCH (10:39)
[2016-10-10] MEDS: Acetaminophen ADULT LIQ* 650 MG/20.3 ML UDC PO PRN ×2 (12:16→22:42)
--- NOTE | 2016-10-10 12:33 | PN ---
Progress Note - Progress Note Note: CRITICAL CARE MEDICINE DATE: 10/10/16 TIME: 950 SUBJECTIVE: Patient seen and examined. PHYSICAL EXAM: Vital Signs: Reviewed. better. off ccb gtt Neurologic: low dose Propofol. awakens for exam, still stable and moving on R. HEENT: anicteric. ett in place. Cardiovascular: S1, S2 Respiratory: coarse. apv Abdomen: soft. nt Extremities: warm Access: piv LABS: Reviewed. IMAGING: Reviewed. MEDICATIONS: Reviewed. ASSESSMENT: 80 F Acute ICH - ?htn vs amyloid angiopathy. HTN Post op, non-thoracic, resp failure PLAN: Neurologic: CT reviewed - improved. nsgy pulled drains. off 3%. stabilizing. sympathetics down. Allow her to equilibrate further today. hob 30 degrees. Cardiovascular: cardene gtt to maintain SBP <140 prn. add 5mg norvasc po. Respiratory: apv, rest today. hopefully liberation tomorrow am if all else is well. Gastrointestinal: ogt. tf resumed. sup Renal/Metabolic: ziegler. Na stable. replete k phos Infectious Disease: no needs Hematology: f/u cbc. scds, no chemical prophylaxis yet but would start tomorrow. Endocrine: f/u glu Musculoskeletal: pt when participating. Psych/Social: daughter updated yesterday Supportive and preventative care as ordered. SUP: ppi VTE prophylaxis: scds; ich Ziegler catheter given critical illness, monitoring needs for accurate assessment of COLBY and KDIGO criteria for critically ill patients and to avoid potential harms of urinary retention, skin breakdown/ulcers. Disposition: ICU Code Status: Full Critical Care Time: 35min Chico Blankenship DO
[2016-10-10] MEDS: Potassium & Sodium Phos 250MG* = 1 PACKET G TUBE SCH ×2 (13:43→21:45)
[2016-10-11] MEDS: fentaNYL* 50 MCG/ML 2 ML VIAL (100 MCG VIAL) IV SLOW PU PRN (02:46)
[2016-10-11] MEDS: Chlorhexidine MOUTHWASH 0.12%* 15 ML UDC TOPICAL SCH (02:46)
[2016-10-11] MEDS: niCARdipine 0.1MG/ML IVPREMIX* 20 MG/200 ML BAG IV SCH ×6 (03:30→19:35)
[2016-10-11] MEDS: Acetaminophen ADULT LIQ* 650 MG/20.3 ML UDC PO PRN (04:13)
[2016-10-11] MEDS: Propofol* 100 ML IV SCH (04:13)
[2016-10-11 05:38] LABS: BUN/Creatinine Ratio 62.8 (8-20); Calcium 8.1 mg/dL (8.6-10.3); EGFR African American 182.6 (>60); Magnesium 2.1 mg/dL (1.9-2.7); Phosphorus 3.5 mg/dL (2.5-5.0); Potassium 3.5 mmol/L (3.5-5.0)
--- NOTE | 2016-10-11 07:38 | PN ---
Progress Note - Progress Note SOAP: Subjective: []Remains intubated,sedated on diprivan POD # 4 Objective: []Wounds OK Moves right side spontaneously Left side extensor to pain Pupils equal Assessment: []Stable neurologically Plan: []Discussed with Dr. Vanessa yesterday,plan to possibly extubate today Prognosis for return to functional level guarded
[2016-10-11] MEDS: Potassium & Sodium Phos 250MG* = 1 PACKET G TUBE SCH ×2 (09:39→21:26)
[2016-10-11] MEDS: amLODIPine TAB* 5 MG G TUBE SCH (09:39)
[2016-10-11] MEDS ORDERED: Haloperidol INJ IV/IM* 5 MG/ML AMP IV SLOW PU PRN (11:17)
--- NOTE | 2016-10-11 11:35 | PN ---
Progress Note - Progress Note Note: CRITICAL CARE MEDICINE DATE: 10/11/16 TIME: 950 SUBJECTIVE: Patient seen and examined. PHYSICAL EXAM: Vital Signs: Reviewed. better. almost off ccb gtt Neurologic: low dose Propofol off. awakens for exam, follows commands. moves R. dense left HEENT: anicteric. ett in place. Cardiovascular: S1, S2 Respiratory: coarse. cpap. needs support but MV ~8lpm demand. Abdomen: soft. nt Extremities: warm Access: cvc LABS: Reviewed. IMAGING: Reviewed. MEDICATIONS: Reviewed. ASSESSMENT: 80 F Acute ICH - ?htn vs amyloid angiopathy. HTN Post op, non-thoracic, resp failure PLAN: Neurologic: stable but still leaving her with deficits impacting her resp pattern. dramatic left sided chest wall weakness Cardiovascular: cardene gtt to maintain SBP <160. 5mg norvasc po and see if we need to adjust post liberation. Respiratory: liberate today directly to high flow. concern remains for rapid shallow breathing pattern based on mechanical weakness not her compliance. psuh her forward as able. If re-intubated again, would need to discuss trach vs one last trial. Gastrointestinal: likely will take a while for swallow and will need ngt and possible peg. tf held today. sup Renal/Metabolic: ziegler. Na stable. Infectious Disease: no needs Hematology: f/u cbc. scds, start hsq Endocrine: f/u glu Musculoskeletal: pt when participating. Psych/Social: will look to d/w family Supportive and preventative care as ordered. SUP: ppi VTE prophylaxis: hsq Ziegler catheter given critical illness, monitoring needs for accurate assessment of COLBY and KDIGO criteria for critically ill patients and to avoid potential harms of urinary retention, skin breakdown/ulcers. Disposition: ICU Code Status: Full Critical Care Time: 35min [place] Blankenship DO
[2016-10-11] MEDS: Heparin VIAL(*) 5000 UNITS/ML VIAL (FIVE THOUSAND) SUBCUT SCH ×2 (13:20→21:42)
[2016-10-11] MEDS ORDERED: Acetaminophen IV 1GM/100ML * 1,000 MG in PREMIX* 100 ML IVPB ONE (14:24)
[2016-10-11] MEDS ORDERED: Acetaminophen SUPP* 650 MG SUPP ONE (22:37)
[2016-10-11] MEDS: Acetaminophen SUPP* 650 MG SUPP PR PRN (22:40)
[2016-10-12] MEDS: Albuterol 2.5 MG/3 ML NEB.SOL* (0.083%) INH PRN (00:45)
[2016-10-12] MEDS: niCARdipine 0.1MG/ML IVPREMIX* 20 MG/200 ML BAG IV SCH ×6 (01:46→22:20)
[2016-10-12 05:48] LABS: Hematocrit 31 % (35-47); Mean Corpuscular HGB Conc 33 g/dl (31-36); Mean Corpuscular Hemoglobin 29 pg (27-31); Mean Corpuscular Volume 89 fL (80-97); Mean Platelet Volume 8 um3 (7.4-10.4); Red Blood Count 3.44 10^6/ul (4.0-5.4); Red Cell Distribution Width 13 % (10.5-15); White Blood Count 8.5 10^3/ul (3.5-10.8)
[2016-10-12] MEDS: Heparin VIAL(*) 5000 UNITS/ML VIAL (FIVE THOUSAND) SUBCUT SCH ×3 (05:52→22:36)
[2016-10-12] MEDS: Acetaminophen SUPP* 650 MG SUPP PR PRN (06:06)
[2016-10-12 06:30] LABS: Calcium 8.2 mg/dL (8.6-10.3); EGFR Non-African American 131.4 (>60); Magnesium 2.2 mg/dL (1.9-2.7); Phosphorus 3.6 mg/dL (2.5-5.0); Potassium 3.5 mmol/L (3.5-5.0)
[2016-10-12] MEDS: Potassium & Sodium Phos 250MG* = 1 PACKET G TUBE SCH ×2 (08:14→22:17)
[2016-10-12] MEDS: amLODIPine TAB* 5 MG G TUBE SCH (08:14)
--- NOTE | 2016-10-12 08:35 | PN ---
Progress Note - Progress Note SOAP: Subjective: [S/p craniotomy for ICH evacuation. POD# 5. Right side movements continue to improve. Left side minimal movements. Extubated yesterday; vapotherm now.] Objective: [ Vital Signs: Temp Pulse Resp BP Pulse Ox 100.1 F 87 24 132/68 100 10/12/16 08:15 10/12/16 08:15 10/12/16 08:15 10/12/16 08:15 10/12/16 08:15 General: Laying comfortably in bed, respirations rapid. Neuro: Right side motor intact, left minimal. Withdraws to pain. Able to follow some commands on right side. Incision: Intact with sari. No swelling or infection.] Assessment: [Neurologically stable post-op.] Plan: [1. Continue to monitor in ICU. ]
[2016-10-12] MEDS: Lansoprazole SOLUTAB* 30 MG G TUBE SCH (08:41)
[2016-10-12] MEDS: Chlorhexidine MOUTHWASH 0.12%* 15 ML UDC TOPICAL SCH (08:41)
[2016-10-12] MEDS ORDERED: D5W KCl 40 MEQ 1000 ML* 1,000 ML IV SCH (10:00)
--- NOTE | 2016-10-12 11:22 | PN ---
Progress Note - Progress Note Note: CRITICAL CARE MEDICINE DATE: 10/12/16 TIME: 1030 SUBJECTIVE: Patient seen and examined. Denies pain, sob. PHYSICAL EXAM: Vital Signs: Reviewed. Neurologic: at new baseline. communicating. HEENT: anicteric. Cardiovascular: S1, S2 Respiratory: rhonchi and paradoxical breathing pattern. Abdomen: soft. nt Extremities: warm Access: cvc LABS: Reviewed. IMAGING: Reviewed. MEDICATIONS: Reviewed. ASSESSMENT: 80 F Acute ICH - ?htn vs amyloid angiopathy. HTN Post op, non-thoracic, resp failure - liberated 10/11 Left hemiparesis Decondition Malnutrition - mild degree Dysphagia Dysarthria PLAN: Neurologic: stable. neck neuro checks. Cardiovascular: maintain SBP <160. Respiratory: remains her biggest current concern. paradoxical breathing sec to dense left myles. Does cough and communicate. coaching. metaneb q4 and bipap nocturnally to offload wob. HFO2 with just buzz requirement >O2 during the day and slow flow wean while her muscle mechanics attempt to equilibrate to path of best resp efficiency. Needs time and support, not a med fix. Gastrointestinal: not ready for swallow. Hold off on ngt today but if resp status maintained, we will place ngt for weekend. if reps status could do well for we can eval swallow Sunday and consider peg needs at that time. sup. Renal/Metabolic: ziegler. Na stable. Give a little iv water back today to meet less then daily need today. Infectious Disease: no needs Hematology: stable. hsq Endocrine: f/u glu Musculoskeletal: pt eval. oob to chair if able today. Psych/Social: family updated at bedside with pt and we all agree in continued supportive care as DNR/DNI, with continued niv use as deemed beneficial. Supportive and preventative care as ordered. SUP: ppi VTE prophylaxis: hsq Ziegler catheter given critical illness, monitoring needs for accurate assessment of COLBY and KDIGO criteria for critically ill patients and to avoid potential harms of urinary retention, skin breakdown/ulcers. Disposition: ICU Code Status: Full Critical Care Time: 35min [place] Blankenship DO
[2016-10-12] MEDS: Pantoprazole IV* 40 MG IV SCH (13:01)
[2016-10-12] MEDS: hydrALAZINE IV* 20 MG/ML VIAL IV SLOW PU PRN ×3 (13:29→23:43)
[2016-10-12] MEDS: Potassium Chloride IV* 40 MEQ in D5W 1000 ML BAG* 1,000 ML IVPB SCH (20:39)
[2016-10-13] MEDS: niCARdipine 0.1MG/ML IVPREMIX* 20 MG/200 ML BAG IV SCH ×3 (01:13→09:36)
[2016-10-13] MEDS: fentaNYL* 50 MCG/ML 2 ML VIAL (100 MCG VIAL) IV SLOW PU PRN (03:04)
[2016-10-13] MEDS: hydrALAZINE IV* 20 MG/ML VIAL IV SLOW PU PRN ×3 (04:28→20:39)
[2016-10-13] MEDS: Heparin VIAL(*) 5000 UNITS/ML VIAL (FIVE THOUSAND) SUBCUT SCH ×3 (05:45→21:50)
[2016-10-13] MEDS: amLODIPine TAB* 5 MG G TUBE SCH (09:19)
[2016-10-13] MEDS: Potassium & Sodium Phos 250MG* = 1 PACKET G TUBE SCH ×2 (09:20→21:49)
[2016-10-13] MEDS: Metoprolol Tartrate IV* 1 MG/ML 5 ML VIAL IV SCH ×2 (09:24→17:34)
--- NOTE | 2016-10-13 10:40 | PN ---
Progress Note - Progress Note SOAP: Subjective: [Patient seen and evaluated with Dr. Olivares, neurosurgery. S/p right craniotomy for ICH evacuation. POD #6. More alert this morning and able to communicate. Left side minimal movements. Right side movements intact. ] Objective: [ Vital Signs: Temp Pulse Resp BP Pulse Ox 100.1 F 78 24 142/90 99 10/13/16 09:30 10/13/16 09:30 10/13/16 09:30 10/13/16 09:30 10/13/16 09:30 General: More alert this morning. Neuro: Able to follow commands on right side. Able to open eyes and gaze to right. Left side remains weak. Incisions: Intact with sari. No swelling or infection. ] Assessment: [Neurologically stable post-op. Improving.] Plan: [1. Lopressor IV Q6 hours scheduled started for elevated BP. Unable to administer Norvasc PO. 2. Swallow evaluation today. 3. Activity up out of bed to chair today. 4. Continue neuro checks Q2 hours. 5. DNR/DNI]
--- NOTE | 2016-10-13 10:54 | PN ---
Progress Note - Progress Note Note: CRITICAL CARE MEDICINE DATE: 10/13/16 TIME: 930 SUBJECTIVE: Patient seen and examined. Denies pain, sob. PHYSICAL EXAM: Vital Signs: Reviewed. Neurologic: at new baseline. communicating. HEENT: anicteric. Cardiovascular: S1, S2 Respiratory: rhonchi better and paradoxical breathing pattern better. Abdomen: soft. nt Extremities: warm Access: cvc intact LABS: Reviewed. IMAGING: Reviewed. MEDICATIONS: Reviewed. ASSESSMENT: 80 F Acute ICH - ?htn vs amyloid angiopathy. HTN Post op, non-thoracic, resp failure - liberated 10/11 Left hemiparesis Deconditioning Malnutrition - mild degree Dysphagia Dysarthria PLAN: Neurologic: stable. neuro checks. Cardiovascular: maintain SBP <160. bb added by surg Respiratory: much better equilibration to her new muscle mechanical technician compensation. slowly wean off hfo2 if able. Not O2 requirement, just higher flow demands with inc neg pressure will worsen her paradoxical breathing, so use caution not to exaccerbate. keep metaneb for now to prevent atelectasis but can hold off on nocturnal bipap and use only prn. Gastrointestinal: ready to attempt swallow eval today. May actually be able to tolerate slowly. lets see. if not, place ko feed and tf for weekend with re-do sunday. sup Renal/Metabolic: ziegler for now. Na well. gentle water but remains less then demand today. Infectious Disease: no needs Hematology: stable. hsq Endocrine: glu ok Musculoskeletal: pt f/u. oob to chair. Psych/Social: family updated yesterday Supportive and preventative care as ordered. SUP: ppi VTE prophylaxis: hsq Ziegler catheter given critical illness, monitoring needs for accurate assessment of COLBY and KDIGO criteria for critically ill patients and to avoid potential harms of urinary retention, skin breakdown/ulcers. Disposition: ICU another 48-72hrs likely Code Status: DNR/DNI Critical Care Time: 30min [place] Blankenship DO
[2016-10-13] MEDS: Pantoprazole IV* 40 MG IV SCH (12:19)
[2016-10-13] MEDS: Potassium Chloride IV* 40 MEQ in D5W 1000 ML BAG* 1,000 ML IVPB SCH (16:25)
--- NOTE | 2016-10-13 19:00 | RAD ---
Indication: Confirm feeding tube placement. Single frontal view of the chest performed at 1825 hours was reviewed. Comparison is made with previous exam dated October 09, 2016. Cardiomegaly is noted. Interstitial edema is noted. Feeding tube tube is in place. Bibasilar atelectasis is noted. IMPRESSION: CARDIOMEGALY WITH BIBASILAR ATELECTASIS. INTERSTITIAL EDEMA IS NOTED. FEEDING TUBE APPEARS TO BE IN PLACE.
--- NOTE | 2016-10-13 20:21 | RAD ---
Indication: Confirm feeding tube placement. Single frontal view of the chest performed at 1930 hours was reviewed. Comparison is made with previous exam dated October 13, 2016. No mediastinal shift is noted. Heart is of normal size and configuration. Lung rodriguez appear clear. Nasogastric tube appears to be within the stomach. IMPRESSION: NO ACTIVE CARDIOPULMONARY DISEASE IS NOTED. FEEDING TUBE APPEARS TO BE COILED IN THE STOMACH.
--- NOTE | 2016-10-13 20:24 | RAD ---
Indication: Confirm feeding tube placement. Single frontal view of the chest performed at 1940 hours was reviewed. Comparison is made with previous exam dated earlier the same day. No mediastinal shift is noted. Heart is of normal size and configuration. Lung rodriguez appear clear. Feeding tube tip appears to be overlying the antrum of the stomach. IMPRESSION: NO ACTIVE CARDIOPULMONARY DISEASE IS NOTED. FEEDING TUBE IS OVERLYING THE ANTRUM OF THE STOMACH.
[2016-10-13] MEDS: Acetaminophen ADULT LIQ* 650 MG/20.3 ML UDC PO PRN (21:49)
[2016-10-14] MEDS: Metoprolol Tartrate IV* 1 MG/ML 5 ML VIAL IV SCH ×2 (01:11→09:41)
[2016-10-14] MEDS: Albuterol 2.5 MG/3 ML NEB.SOL* (0.083%) INH PRN (03:56)
[2016-10-14] MEDS: Heparin VIAL(*) 5000 UNITS/ML VIAL (FIVE THOUSAND) SUBCUT SCH ×3 (05:18→21:07)
[2016-10-14 05:43] LABS: Hematocrit 29 % (35-47); Hemoglobin 9.9 g/dl (12.0-16.0); Mean Corpuscular HGB Conc 35 g/dl (31-36); Mean Corpuscular Hemoglobin 31 pg (27-31); Mean Corpuscular Volume 88 fL (80-97); Mean Platelet Volume 7 um3 (7.4-10.4); Red Blood Count 3.26 10^6/ul (4.0-5.4); Red Cell Distribution Width 13 % (10.5-15)
[2016-10-14 06:01] LABS: BUN/Creatinine Ratio 57.1 (8-20); Calcium 8.1 mg/dL (8.6-10.3); EGFR African American 187.7 (>60); EGFR Non-African American 145.9 (>60); Magnesium 2.2 mg/dL (1.9-2.7); Phosphorus 2.7 mg/dL (2.5-5.0); Potassium 3.5 mmol/L (3.5-5.0)
[2016-10-14] MEDS: amLODIPine TAB* 5 MG G TUBE SCH (09:41)
[2016-10-14] MEDS: Potassium & Sodium Phos 250MG* = 1 PACKET G TUBE SCH (09:42)
[2016-10-14] MEDS ORDERED: amLODIPine TAB* 5 MG G TUBE ONE (10:16)
[2016-10-14] MEDS ORDERED: hydrALAZINE IV* 20 MG/ML VIAL IV SLOW PU PRN (10:19)
[2016-10-14] MEDS ORDERED: Furosemide IV* 10 MG/ML VIAL (40 MG) IV SLOW PU ONE (10:32)
--- NOTE | 2016-10-14 10:33 | PN ---
Progress Note - Progress Note Note: CRITICAL CARE MEDICINE DATE: 10/14/16 TIME: 830 SUBJECTIVE: Patient seen and examined. PHYSICAL EXAM: Vital Signs: Reviewed. Neurologic: communicating even better. HEENT: anicteric. Cardiovascular: S1, S2 Respiratory: rhonchi present. better breathing pattern but still fast at times. wean flow Abdomen: soft. nt Extremities: warm Access: cvc intact, may be able to dc soon. LABS: Reviewed. IMAGING: Reviewed. MEDICATIONS: Reviewed. ASSESSMENT: 80 F Acute ICH - ?htn vs amyloid angiopathy. HTN Post op, non-thoracic, resp failure - liberated 10/11 Left hemiparesis Deconditioning Malnutrition - mild degree Dysphagia Dysarthria PLAN: Neurologic: stable to improving. neuro checks. Cardiovascular: maintain SBP <160. can utilize norvasc via ngt and add arb. Respiratory: improving. wean off HFO2 today. pulm toliet. may still again need flow if exaccerbating ailments. Gastrointestinal: tf. repeat swallow sunday. sup Renal/Metabolic: ziegler for now. dc d5. Na equilibrated and can have dose lasix today to move water and hold na from dipping more. Infectious Disease: no needs Hematology: stable. hsq Endocrine: glu ok Musculoskeletal: pt f/u. oob to chair. Psych/Social: family updated yesterday Supportive and preventative care as ordered. SUP: ppi VTE prophylaxis: hsq Ziegler catheter given critical illness, monitoring needs for accurate assessment of COLBY and KDIGO criteria for critically ill patients and to avoid potential harms of urinary retention, skin breakdown/ulcers. Disposition: ICU currently Code Status: DNR/DNI Critical Care Time: 30min [place] Blankenship DO
[2016-10-14] MEDS: Potassium Chloride LIQUID* 20 MEQ PACKET G TUBE SCH ×2 (10:44→21:06)
[2016-10-14] MEDS: Losartan TAB* 25 MG G TUBE SCH (10:44)
[2016-10-14] MEDS: Acetaminophen ADULT LIQ* 650 MG/20.3 ML UDC PO PRN ×2 (11:24→21:06)
--- NOTE | 2016-10-14 12:33 | PN ---
Progress Note - Progress Note SOAP: Subjective: 80F POD #7 S/p right craniotomy for ICH evacuation. More alert this morning and siting in the chair Left side minimal movements. Right side movements intact. s/p NG tube pladement] Objective: Vital Signs Temp 101.3 F 10/14/16 12:00 Pulse 98 10/14/16 12:00 Resp 24 10/14/16 12:00 BP 131/72 10/14/16 12:00 Pulse Ox 100 10/14/16 12:00 Intake & Output 10/13/16 10/14/16 10/14/16 19:59 07:59 19:59 Intake Total 514 933 542 Output Total 335 820 Balance 179 113 542 Weight 154 lb 5.177 oz Intake: IV Fluids 514 933 242 D5W NS 40 meq KCL 429 752 200 NS (0.9%) 85 181 42 Oral 0 Tube Feeding Flush Amount 300 Output: Serrano 335 820 Other: # Bowel Movements 1 1 Estimated Stool Amount Large Large Neuro: A/A. Able to follow commands on right side. Able to open eyes and gaze to right. PEELA Left facial Left side myles-plagic Right wet trimmer hand and wiggle toes Incisions: Intact with sari. C/D/I ] Abnormal Lab Results 10/14/16 10/14/16 05:30 05:30 WBC 9.0 RBC 3.26 L Hgb 9.9 L Hct 29 L MCV 88 MCH 31 MCHC 35 RDW 13 Plt Count 228 MPV 7 L Sodium 135 D Potassium 3.5 Chloride 106 Carbon Dioxide 25 Anion Gap 4 BUN 24 Creatinine 0.42 L Est GFR ( Amer) 187.7 Est GFR (Non-Af Amer) 145.9 BUN/Creatinine Ratio 57.1 H Glucose 120 H Calcium 8.1 L Phosphorus 2.7 Magnesium 2.2 Assessment: [80F POD #7 S/p right craniotomy for ICH evacuation. Neurologically stable post-op hemiplegic. failed swallow test, NG placed Plan: 1. Avoid hypertension 2. Swallow evaluation next week. 3. Activity up out of bed to chair. 4. Continue neuro checks Q2 hours. 5. Avoid hyponatremia, keep Na over 140 5. DNR/DNI D/W patient and ICU team, please call for any questions
--- NOTE | 2016-10-14 12:38 | PN ---
Progress Note - Progress Note SOAP: Subjective: [] Objective: [] Assessment: [] Plan: []
[2016-10-15] MEDS: Heparin VIAL(*) 5000 UNITS/ML VIAL (FIVE THOUSAND) SUBCUT SCH (05:56)
[2016-10-15] MEDS: Acetaminophen ADULT LIQ* 650 MG/20.3 ML UDC PO PRN ×4 (05:56→22:54)
[2016-10-15] MEDS: amLODIPine TAB* 5 MG G TUBE SCH (07:58)
[2016-10-15] MEDS: Losartan TAB* 25 MG G TUBE SCH (07:58)
--- NOTE | 2016-10-15 09:14 | RAD ---
HISTORY: Mental status change COMPARISONS: October 10, 2016 TECHNIQUE: Multiple contiguous axial CT scans were obtained of the head without intravenous contrast. FINDINGS: HEMORRHAGE/INFARCT: There is been interval rehemorrhage/re-accumulation of blood within the right frontal and temporal lobes with associated vasogenic edema. The hematoma measures approximately 8.4 x 2.3 cm transversely. Elsewhere, there is no hemorrhage or acute infarct. MASSES/SHIFT: There is 1.4 cm of subfalcine shift to the left. There is partial effacement of the basal cisterns. EXTRA-AXIAL SPACES: There are no extra-axial fluid collections. SULCI AND VENTRICLES: There is mass effect upon the ventricles. There is no ventriculomegaly or appreciable intraventricular extension of hemorrhage on the current examination. CEREBRUM: As noted above, there has been interval re-hemorrhage within the right frontal and temporal lobes with a hematoma measuring up to 8.4 cm in size with associated subfalcine shift to the left and associated vasogenic edema. BRAINSTEM: There are no focal parenchymal abnormalities. CEREBELLUM: There are no focal parenchymal abnormalities. VESSELS: The vessels are grossly normal. PARANASAL SINUSES: The paranasal sinuses are clear. ORBITS: The orbits are unremarkable. BONES AND SOFT TISSUE: There is postsurgical change to the right frontal skull. OTHER: None IMPRESSION: THERE HAS BEEN INTERVAL RECURRENCE OF A RIGHT FRONTOTEMPORAL INTRAPARENCHYMAL HEMATOMA MEASURING UP TO 8.4 CM IN MAXIMUM DIMENSION WITH 1.4 CENTERS OF SUBFALCINE SHIFT TO THE LEFT. THERE IS PARTIAL EFFACEMENT OF THE BASAL CISTERNS. THERE IS ASSOCIATED VASOGENIC EDEMA. PRELIMINARY FINDINGS WERE DISCUSSED WITH THE CHARGE NURSE IN ICU AT APPROXIMATELY 9:09 AM ON OCTOBER 15, 2016
[2016-10-15 10:01] LABS: Hematocrit 31 % (35-47); Hemoglobin 10.5 g/dl (12.0-16.0); Mean Corpuscular HGB Conc 34 g/dl (31-36); Mean Corpuscular Hemoglobin 30 pg (27-31); Mean Corpuscular Volume 87 fL (80-97); Mean Platelet Volume 7 um3 (7.4-10.4); Red Blood Count 3.57 10^6/ul (4.0-5.4); Red Cell Distribution Width 13 % (10.5-15); White Blood Count 9.7 10^3/ul (3.5-10.8)
--- NOTE | 2016-10-15 10:02 | PN ---
Progress Note - Progress Note SOAP: Subjective: [] - Progress Note SOAP: Subjective: 80F POD #8 S/p right craniotomy for ICH evacuation. She had one episode of unresponsive, difficulty with breathing this morning CT scan showed rebleeding in prior hematoma cavity She is getting more response afterward Objective: Vital Signs Temp 100.2 F 10/15/16 08:00 Pulse 92 10/15/16 09:00 Resp 32 10/15/16 09:00 BP 153/82 10/15/16 09:00 Pulse Ox 99 10/15/16 09:00 Intake & Output 10/14/16 10/15/16 10/15/16 19:59 07:59 19:59 Intake Total 2168 100 Output Total 1550 750 Balance 618 -650 Weight 147 lb 7.828 oz Intake: IV Fluids 242 D5W NS 40 meq KCL 200 NS (0.9%) 42 Tube Feeding 1626 Tube Feeding Flush Amount 300 100 Output: Serrano 1550 750 Other: # Bowel Movements 1 Estimated Stool Amount Large Neuro: open eye to voice, right gaze not follow commands on right side. PEELA Left facial Left side myles-plagic Right UE localize and spon movement RLE W/D briskly, LLE w/d slowlt Incisions: Intact with sari. C/D/I Assessment: [80F POD #8 S/p right craniotomy for ICH evacuation. with rebleeding in the hematoma cavity this morning D/W family and ICU team, pt currently DNR/DNI Maximizing medical management first and No surgery at this time Plan: Avoid hypertension, SBP less 140 mmhg Continue neuro checks Q1 hours. start 3% NS, Avoid hyponatremia, keep Na over 145-[address] scan tomorrow or as needed watch airway and suction, D/W patient and ICU team, please call for any questions
[2016-10-15 10:13] LABS: BUN/Creatinine Ratio 40.8 (8-20); Calcium 8.5 mg/dL (8.6-10.3); EGFR African American 157.1 (>60); EGFR Non-African American 122.1 (>60); Magnesium 2.2 mg/dL (1.9-2.7); Phosphorus 3.2 mg/dL (2.5-5.0); Potassium 3.8 mmol/L (3.5-5.0)
--- NOTE | 2016-10-15 10:13 | PN ---
Progress Note - Progress Note Note: CRITICAL CARE MEDICINE DATE: 10/15/16 TIME: 930 SUBJECTIVE: Patient seen and examined. Called by nursing this am for change in ms. ct performed revealing recurrence of R ich with midline shift PHYSICAL EXAM: Vital Signs: Reviewed. Neurologic: moving R arm >leg.. Not following my commands with her arm. eyes open and right gaze preference. Not audible. Able to protrude tongue x2 to my command. HEENT: anicteric. Cardiovascular: S1, S2 Respiratory: mild rhonchi present. pattern stable. Abdomen: soft. nt Extremities: warm Access: cvc intact LABS: Reviewed. IMAGING: Reviewed. MEDICATIONS: Reviewed. ASSESSMENT: 80 F Acute ICH HTN Post op, non-thoracic, resp failure - liberated 10/11 Left hemiparesis Deconditioning Malnutrition - mild degree Dysphagia Dysarthria Re-current ich PLAN: Neurologic: ct as above. na has drifted down and give back 3% with bolus first today. could have seized earlier and would place on empiric keppra for now. neuro checks. D/w Dr Olivares Cardiovascular: maintain SBP <140 if able. utilize norvasc, bb via ngt and arb. hydralazine via iv for now prn Respiratory: luckily stable at moment. close f/u. no inc flow needs at present. Gastrointestinal: tf. see if she can still get to repeat swallow sunday vs peg discussions. sup Renal/Metabolic: ziegler. Na lower then desired. 3% as above. Infectious Disease: no needs Hematology: stable H&H but f/u. off hsq. scds Endocrine: glu ok Musculoskeletal: pt f/u. Psych/Social: family updated Supportive and preventative care as ordered. SUP: ppi VTE prophylaxis: scds Ziegler catheter given critical illness, monitoring needs for accurate assessment of COLBY and KDIGO criteria for critically ill patients and to avoid potential harms of urinary retention, skin breakdown/ulcers. Disposition: ICU Code Status: DNR/DNI Critical Care Time: 35min [place] Blankenship DO
[2016-10-15] MEDS ORDERED: Metoprolol Tartrate TAB* 50 mg ONE (10:21)
[2016-10-15] MEDS: Metoprolol Tartrate TAB* 50 mg G TUBE SCH ×2 (10:24→20:54)
[2016-10-15] MEDS: Sodium Chloride 3% HYPERTONIC* 500 ML IVPB SCH ×2 (10:48→20:17)
[2016-10-15] MEDS: hydrALAZINE IV* 20 MG/ML VIAL IV SLOW PU PRN ×2 (18:16→22:39)
[2016-10-16] MEDS: Sodium Chloride 3% HYPERTONIC* 500 ML IVPB SCH ×2 (04:19→16:08)
[2016-10-16] MEDS: hydrALAZINE IV* 20 MG/ML VIAL IV SLOW PU PRN ×2 (05:09→18:32)
[2016-10-16 05:56] LABS: Hematocrit 28 % (35-47); Hemoglobin 9.5 g/dl (12.0-16.0); Mean Corpuscular HGB Conc 34 g/dl (31-36); Mean Corpuscular Hemoglobin 30 pg (27-31); Mean Corpuscular Volume 89 fL (80-97); Mean Platelet Volume 7 um3 (7.4-10.4); Red Blood Count 3.19 10^6/ul (4.0-5.4); Red Cell Distribution Width 13 % (10.5-15); White Blood Count 8.8 10^3/ul (3.5-10.8)
[2016-10-16 06:12] LABS: BUN/Creatinine Ratio 33.3 (8-20); Calcium 8.5 mg/dL (8.6-10.3); EGFR African American 173.3 (>60); EGFR Non-African American 134.8 (>60); Magnesium 2.3 mg/dL (1.9-2.7); Phosphorus 2.4 mg/dL (2.5-5.0); Potassium 3.7 mmol/L (3.5-5.0)
[2016-10-16] MEDS: Acetaminophen ADULT LIQ* 650 MG/20.3 ML UDC PO PRN ×3 (07:22→20:07)
[2016-10-16] MEDS: Losartan TAB* 25 MG G TUBE SCH (07:55)
[2016-10-16] MEDS: Metoprolol Tartrate TAB* 50 mg G TUBE SCH ×2 (07:55→20:07)
[2016-10-16] MEDS: amLODIPine TAB* 5 MG G TUBE SCH (07:55)
--- NOTE | 2016-10-16 08:39 | PN ---
Progress Note - Progress Note Note: [facility] Progress Note Discussed by phone this AM with Dr Blankenship in hand-off Mental status appears to wax&wane SBP 141 HR 108 RR 21 Temp 101.5 SpO2 97-98 (NC) Skin no diaphoresis, no cyanosis Rt cranial wound with sari Sclerae anicteric Oral mucosa pink and moist Lungs with good air entry bilat, no wheezes, no rhonchi Cor RRR no rub, no murmur Abd soft distension, nontender ziegler Ext no edema, (+)SCDs FT in nare Lt SCV TLC Neuro not opening eyes or following any commands this AM to verbal or tactile stimuli, some intermittent movement RLE WBC 8.8 Hgb 9.5 Plt 272 Na 143 K 3.7 BUN/Creat 15/0.45 Pi 2.4 Mg 2.3 IMP: Intracerebral Hemm s/p craniotomy with evacuation and recurrent ICH Lt hemiparesis due to above Encephalopathy Hx HTN Mild anemia Hyponatremia...on 3% NS with apparent target goal range 145-150 Fever w/o leucocytosis...perhaps centrally mediated PLAN/REC: Continue 3% NS and monitor Na level Q6 hrs as previously ordered Repeat CT Head today as follow-up Blood pressure control Keep HOB raised Mech DVT prophyl To check UA and CXR as screening re temperature elevation Cultures if develops signs of toxicity Bedside neurologic monitoring/assessment Respect current care limitations as designated Discussed with Dr Elise lopez while ago Discussed with bedside Nurse this AM
--- NOTE | 2016-10-16 08:46 | PN ---
Progress Note - Progress Note SOAP: Subjective: Subjective: [] - Progress Note SOAP: Subjective: 80F POD #9 S/p right craniotomy for ICH evacuation. with rebleeding in prior hematoma cavity on POD#8 She is getting more response afterward, waxing and waning, following commands sometimes, Objective: Vital Signs Temp 101.1 F 10/16/17 08:00 Pulse 83 10/16/16 08:34 Resp 28 10/16/16 08:34 BP 134/54 10/16/16 08:00 Pulse Ox 98 10/16/16 08:34 Intake & Output 10/15/16 10/16/16 10/16/16 19:59 07:59 19:59 Intake Total 1516 1433 413 Output Total 1850 Balance 1516 -417 413 Weight 143 lb 15.39 oz Intake: IV Fluids 40 267 NS (0.9%) 40 267 IVPB 386 751 NS (0.9%) 110 Tube Feeding 1090 385 413 Tube Feeding Flush Amount 30 Output: Serrano 1850 Neuro: open eye to voice, right gaze, tracking a not follow commands on right side at this time. PEELA Left facial Left myles-plagic Right UE localize and spon movement, LUE no any movement. RLE spon movement and W/D briskly, LLE w/d W/D Incisions: Intact with sari. C/D/I Laboratory Results - last 24 hr 10/15/17 10/15/10/15/16 09:45 09:45 09:45 WBC 9.7 RBC 3.57 L Hgb 10.5 L Hct 31 L MCV 87 MCH 30 MCHC 34 RDW 13 Plt Count 261 MPV 7 L INR (Anticoag Therapy) 1.02 APTT 31.9 Sodium 133 Potassium 3.8 Chloride 103 Carbon Dioxide 25 Anion Gap 5 BUN 20 Creatinine 0.49 L Est GFR ( Amer) 157.1 Est GFR (Non-Af Amer) 122.1 BUN/Creatinine Ratio 40.8 H Glucose 121 H Calcium 8.5 L Phosphorus 3.2 Magnesium 2.2 10/15/16 10/15/16 10/16/16 15:15 22:00 05:40 WBC RBC Hgb Hct MCV MCH MCHC RDW Plt Count MPV INR (Anticoag Therapy) APTT Sodium 138 141 143 Potassium 3.7 Chloride 116 H Carbon Dioxide 23 Anion Gap 4 BUN 15 Creatinine 0.45 L Est GFR ( Amer) 173.3 Est GFR (Non-Af Amer) 134.8 BUN/Creatinine Ratio 33.3 H Glucose 130 H Calcium 8.5 L Phosphorus 2.4 L Magnesium 2.3 10/16/16 05:40 WBC 8.8 RBC 3.19 L Hgb 9.5 L Hct 28 L MCV 89 MCH 30 MCHC 34 RDW 13 Plt Count 272 MPV 7 L INR (Anticoag Therapy) APTT Sodium Potassium Chloride Carbon Dioxide Anion Gap BUN Creatinine Est GFR ( Amer) Est GFR (Non-Af Amer) BUN/Creatinine Ratio Glucose Calcium Phosphorus Magnesium Assessment: 80F POD 80F POD #9 S/p right craniotomy for ICH evacuation. with rebleeding in prior hematoma cavity on POD#8 exam waxing and waning, slightly improvement D/W family and ICU team, pt currently DNR/DNI Maximizing medical management first and No surgery at this time Plan: CT scan this morning to followup ICH Avoid hypertension, SBP less 140 mmhg Continue neuro checks Q1 hours. Continue 3% NS, Na 143, keep Na around 145-150 Keppra 750 mg BID watch airway and suction, Continue TF and other ICU care D/W patient and ICU team, please call for any questions
--- NOTE | 2016-10-16 09:28 | RAD ---
INDICATION: Fever. COMPARISON: Comparison is made with prior chest x-ray study from October 13, 2016. TECHNIQUE: A portable view of the chest was obtained. FINDINGS: There is a central venous catheter present entering on the left side. The catheter tip projects in the right paratracheal region. There is a nasogastric tube present which demonstrates normal course. The distal catheter projects below the left hemidiaphragm off the film. The heart is within normal limits in size. The lungs are underinflated. There are small bibasilar infiltrates and suggestion of a small right pleural effusion. IMPRESSION: EXPIRATORY EXAM, SMALL BIBASILAR INFILTRATES AND SMALL RIGHT PLEURAL EFFUSION.
[2016-10-16 09:49] LABS: Urine Bacteria 1+ (Absent); Urine Bilirubin Negative (Negative); Urine Glucose Negative (Negative); Urine Nitrite Negative (Negative)
--- NOTE | 2016-10-16 10:21 | RAD ---
INDICATION: Follow-up intracerebral hemorrhage COMPARISON: Most recent CT of the brain is dated October 15, 2016 TECHNIQUE: Contiguous axial sections of the brain were obtained from the skull base to the vertex without contrast. FINDINGS: Again seen is an area of intraparenchymal hemorrhage occupying the right frontal and parietal lobe white matter tracts measuring approximately 2.1 x 8.3 cm in the axial plane. On the previous day CT of the brain the hyperattenuating blood measured approximately 2.1 x 8.7 cm. There is again seen surrounding vasogenic edema. Mass effect almost completely effaces the right lateral ventricle and there is approximately 11 mm of right to left midline shift. On the previous CT of the brain the right to left midline shift measured approximately 13 mm. Stable postoperative findings include right frontal bone craniectomy with surgical material and overlying surgical skin sari. The visualized portion of the paranasal sinuses and mastoid air cells appear clear. IMPRESSION: There is been no significant change in the size of the right frontal parietal lobe intraparenchymal hemorrhage with surrounding vasogenic edema. Effacement of the right lateral ventricle and right to left midline shift as also not significantly changed from the previous day CT of the brain.
[2016-10-16] MEDS ORDERED: ZOSYN 3.375 GM ONE TIME DOSE-OVER 30 MINUTES IVPB (12:30)
[2016-10-16] MEDS: Piperac/Tazob 3.375 gm in NS* 3.375 GM/100 ML BAG IVPB SCH (16:06)
[2016-10-17] MEDS: Piperac/Tazob 3.375 gm in NS* 3.375 GM/100 ML BAG IVPB SCH ×3 (01:34→16:56)
[2016-10-17] MEDS: hydrALAZINE IV* 20 MG/ML VIAL IV SLOW PU PRN ×2 (02:18→23:03)
[2016-10-17] MEDS ORDERED: hydrALAZINE IV* 20 MG/ML VIAL IV SLOW PU ONE (04:16)
[2016-10-17] MEDS: Acetaminophen ADULT LIQ* 650 MG/20.3 ML UDC PO PRN ×3 (04:34→16:34)
[2016-10-17] MEDS ORDERED: Losartan TAB* 25 MG G TUBE SCH (06:32)
[2016-10-17 06:55] LABS: BUN/Creatinine Ratio 30.9 (8-20); Calcium 8.7 mg/dL (8.6-10.3); EGFR African American 137.5 (>60); EGFR Non-African American 106.9 (>60); Potassium 3.5 mmol/L (3.5-5.0)
--- NOTE | 2016-10-17 07:57 | PN ---
Progress Note - Progress Note Note: [facility] Progress Note Noted Nurse's entries re brief SVT as well as recurrent SBP>140 needing additional Hydralazine Did poorly on swallow evaluation ytdy...not unexpected given overall mental status Mental status continues to wax&wane....with mild-mod noxious stimulation will sustain eyes open a little and focus gaze however is generally quite adynamic Will move RUE to face, moves both lower extrems to tactile stimulation, LUE with sensation but no withdrawal SBP 109 HR 81 RR 22 Temp 99.2 SpO2 98 (NC) UO OK Skin no diaphoresis, no cyanosis Rt cranial wound with sari Sclerae anicteric, pupils equal Oral mucosa pink and a little dry Lungs with good air entry bilat, no wheezes, few rhonchi Cor RRR S1 and S2 normal, no rub, no murmur Abd soft distension, nontender, (+)BS ziegler Ext no edema, (+)SCDs FT in nare Lt SCV TLC Neuro..as above Na 147 K 3.5 BUN/Creat 17/0.55 Gluc 149 IMP: Intracerebral Hemm s/p craniotomy with evacuation and recurrent ICH Lt UE plegic due to above Encephalopathy due to ICH Hx HTN...goal/target is to keep SBP<140 in face of recurrent ICH Brief episodes SVT twice in last 24 hrs Mild anemia Hyponatremia...now off 3%NS with Na 147...goal has been to preserve Na 145-150 range Fever w/o leucocytosis...perhaps centrally mediated...UA with pyuria suggestive of UTI and CXR with small basilar consolidations c/w atelectasis vs pna Unfortunately no expectation to obtain a good sputum sample from patient under current condition. Oropharyngeal dysphagia PLAN/REC: Will add salt tabs to feeds as feeds are generally quite hypotonic in formulation Will aument BP control by increasing Lopressor to Q8 hrs...this will hopefully also treat/prophylax against onset of SVT To consider also augmenting Losartan Keep HOB raised Mech DVT prophyl Continue Zosyn for now Blood cultures if develops signs of toxicity Ongoing bedside neurologic monitoring/assessment Respect current care limitations as designated Continue nasogastric feeds Re-evaluate for swallow once/if mental status improves sufficiently Discussed with bedside Nurse this AM Discussed with Dr Olivares this AM Discussed with ICU Multidisciplinary team
[2016-10-17] MEDS: amLODIPine TAB* 5 MG G TUBE SCH (08:14)
[2016-10-17] MEDS: Sodium Chloride TAB* 1 GM FEED TUBE SCH ×2 (08:24→13:32)
--- NOTE | 2016-10-17 08:24 | PN ---
Progress Note - Progress Note SOAP: Subjective: [S/p right craniotomy for ICH evacuation, POD #10. Rebleed in previous ICH cavity on POD #8. Right upper and lower extremity movements spontaneous but infrequent. Left lower extremity spontaneous movements infrequent. Not following commands this morning. ] Objective: [ Vital Signs: Temp Pulse Resp BP Pulse Ox 99.4 F 94 23 127/55 98 10/17/16 08:00 10/17/16 08:08 10/17/16 08:08 10/17/16 08:00 10/17/16 08:09 General: Laying in bed, no acute distress. Unable to follow simple commands. Not communicating. Neuro: Motor in RUE, RLE, LLE spontaneous. Withdraws to painful stimuli. Right pupil 2mm, left 3mm. Incision: Intact with sari. Without infection or swelling. Laboratory Results - last 24 hr 10/16/16 10/16/16 10/16/16 09:17 12:00 18:00 Sodium 146 H 149 H Potassium Chloride Carbon Dioxide Anion Gap BUN Creatinine Est GFR ( Amer) Est GFR (Non-Af Amer) BUN/Creatinine Ratio Glucose Calcium Urine Color Yellow Urine Appearance Cloudy Urine pH 6.0 Ur Specific Salome 1.017 Urine Protein Negative Urine Ketones Negative Urine Blood 1+ H Urine Nitrate Negative Urine Bilirubin Negative Urine Urobilinogen Negative Ur Leukocyte Esterase 3+ H Urine WBC (Auto) 3+(>20/hpf) H Urine RBC (Auto) 3+(>10/hpf) H Ur Squamous Epith Cells Present H Urine Bacteria 1+ H Urine Glucose Negative Urine Ascorbic Acid * H 10/16/16 10/17/16 23:54 06:00 Sodium 150 H 147 H Potassium 3.5 Chloride 119 H Carbon Dioxide 22 Anion Gap 6 BUN 17 Creatinine 0.55 Est GFR ( Amer) 137.5 Est GFR (Non-Af Amer) 106.9 BUN/Creatinine Ratio 30.9 H Glucose 149 H Calcium 8.7 Urine Color Urine Appearance Urine pH Ur Specific Salome Urine Protein Urine Ketones Urine Blood Urine Nitrate Urine Bilirubin Urine Urobilinogen Ur Leukocyte Esterase Urine WBC (Auto) Urine RBC (Auto) Ur Squamous Epith Cells Urine Bacteria Urine Glucose Urine Ascorbic Acid ] Assessment: [S/p craniotomy for ICH evacuation with recent rebleed. CT brain on 10/16 unchanged from 10/15. DNR/DNI. No surgical intervention.] Plan: [1. Continue neuro checks Q1h. 2. Continue tube feeds 3. Keep SBP less than 140. 4. Keppra 750 mg BID.]
[2016-10-17] MEDS: Metoprolol Tartrate TAB* 50 mg G TUBE SCH ×2 (13:32→21:59)
[2016-10-17 17:13] LABS: BUN/Creatinine Ratio 36.5 (8-20); Calcium 8.8 mg/dL (8.6-10.3); EGFR African American 146.7 (>60); Potassium 3.7 mmol/L (3.5-5.0)
[2016-10-18] MEDS: Acetaminophen ADULT LIQ* 650 MG/20.3 ML UDC PO PRN (00:26)
[2016-10-18] MEDS: Piperac/Tazob 3.375 gm in NS* 3.375 GM/100 ML BAG IVPB SCH ×2 (01:12→09:25)
[2016-10-18] MEDS: hydrALAZINE IV* 20 MG/ML VIAL IV SLOW PU PRN (05:17)
[2016-10-18] MEDS: Metoprolol Tartrate TAB* 50 mg G TUBE SCH ×4 (05:22→21:16)
[2016-10-18 06:28] LABS: Hematocrit 30 % (35-47); Hemoglobin 9.7 g/dl (12.0-16.0); Mean Corpuscular HGB Conc 33 g/dl (31-36); Mean Corpuscular Hemoglobin 30 pg (27-31); Mean Corpuscular Volume 92 fL (80-97); Mean Platelet Volume 8 um3 (7.4-10.4); Red Blood Count 3.21 10^6/ul (4.0-5.4); Red Cell Distribution Width 15 % (10.5-15); White Blood Count 10.2 10^3/ul (3.5-10.8)
[2016-10-18 06:43] LABS: BUN/Creatinine Ratio 40.4 (8-20); Calcium 8.7 mg/dL (8.6-10.3); EGFR African American 146.7 (>60); Magnesium 2.5 mg/dL (1.9-2.7); Phosphorus 3.6 mg/dL (2.5-5.0); Potassium 3.8 mmol/L (3.5-5.0)
--- NOTE | 2016-10-18 08:11 | PN ---
Progress Note - Progress Note Note: CCM Progress Note Continues with waxing & waning of mental status adynamic This AM, as usual, hard to arouse SBP 142 HR 96 RR 17-23 Temp 100.3 SpO2 95 (RA) UO good I/Os (+)348 ml Skin no diaphoresis, no cyanosis Rt cranial wound with partial dressing Sclerae anicteric, pupils equal Oral mucosa pink Lungs with good air entry bilat, no wheezes, scattered rhonchi Cor RRR S1 and S2 normal, no rub, no murmur Abd soft distension, nontender, (+)BS ziegler Ext no edema, (+)SCDs FT in nare Lt SCV TLC Na 147 K 3.8 BUN/Creat 21/0.52 Mg 2.5 Pi 3.6 WBC 10 Hgb 9.7 Plt 308 Urine Cx only 10-25K Staph IMP: Intracerebral Hemm s/p craniotomy with evacuation and recurrent ICH Lt UE plegic due to above Encephalopathy due to ICH Hx HTN...goal/target is to keep SBP<140 in face of recurrent ICH Brief episodes SVT ...no further reports since increase of Lopressor Mild anemia Hypernatremia...mild...within target/goal range of 145-150 Low grade temperatures w/o leucocytosis...colony count of Staph not consequential so doubt UTI in the end..suspect suspicious UA more reflective of local irritation from ziegler Oropharyngeal dysphagia...due to encephalopathy PLAN/REC: Sodium levels maintained in goal range w/o NaCl tabs...will watch chemistries daily Will aument BP control further by making Losartan Q 12 hrs Continue Lopressor as in place for now Keep HOB raised Mech DVT prophyl To update CXR and continue Zosyn for present Blood cultures if develops signs of toxicity Ongoing bedside neurologic monitoring/assessment Respect current care limitations as designated Continue nasogastric feeds Re-evaluate for swallow once/if mental status improves sufficiently Discussed quite a bit ytdy with family at bedside....time frame for assessment of recovery expected to take a few/several weeks. They are aware that main issue is to avoid any complication in interim such as development of pneumonia which would complicate care in this frail patient to point from which she might not recover. Discussed again today with family. Discussed with Dr Olivares this AM Discussed with ICU Multidisciplinary team
--- NOTE | 2016-10-18 09:01 | PN ---
Progress Note - Progress Note SOAP: Subjective: [S/p right craniotomy for ICH evacuation, POD #11. Rebleed in previous ICH cavity on POD #8. Right upper and lower extremity movements spontaneous but infrequent. Left lower extremity spontaneous movements infrequent. Following some simple commands. Slightly improving.] Objective: [ Vital Signs: Temp Pulse Resp BP Pulse Ox 100.3 F 87 21 142/64 96 10/18/16 07:00 10/18/16 07:00 10/18/16 07:00 10/18/16 07:00 10/18/16 07:00 General: Laying in bed, no acute distress. Able to follow simple commands. Neuro: Motor in RUE, RLE, LLE spontaneous. Withdraws to painful stimuli. Right pupil 2mm, left 3mm. Gives thumbs up and two fingers up in right hand. Not wiggling toes this morning. Incision: Intact with sari. Without infection or swelling. Laboratory Results - last 24 hr 10/17/16 10/18/16 10/18/16 16:32 06:05 06:05 WBC 10.2 RBC 3.21 L Hgb 9.7 L Hct 30 L MCV 92 MCH 30 MCHC 33 RDW 15 Plt Count 308 MPV 8 Neut % (Auto) 74.1 Lymph % (Auto) 16.9 L Isabella % (Auto) 7.0 Eos % (Auto) 1.4 Baso % (Auto) 0.6 Absolute Neuts (auto) 7.5 Absolute Lymphs (auto) 1.7 Absolute Monos (auto) 0.7 Absolute Eos (auto) 0.1 Absolute Basos (auto) 0.1 Absolute Nucleated RBC 0.01 Nucleated RBC % 0.1 Sodium 150 H 147 H Potassium 3.7 3.8 Chloride 121 H 117 H Carbon Dioxide 26 24 Anion Gap 3 6 BUN 19 21 Creatinine 0.52 0.52 Est GFR ( Amer) 146.7 146.7 Est GFR (Non-Af Amer) 114.0 114.0 BUN/Creatinine Ratio 36.5 H 40.4 H Glucose 134 H 135 H Calcium 8.8 8.7 Phosphorus 3.6 Magnesium 2.5 ] Assessment: [S/p craniotomy for ICH evacuation with recent rebleed. CT brain on 10/16 unchanged from 10/15. DNR/DNI. Waxing and waning currently. No surgical intervention.] Plan: [1. Continue neuro checks Q1h. 2. Continue tube feeds 3. Keep SBP less than 160. 4. Keppra 750 mg BID. 5. Out of bed to chair. 6. Suction secretions frequently. 7. Continue UTI treatment.]
[2016-10-18] MEDS: amLODIPine TAB* 5 MG G TUBE SCH (09:28)
[2016-10-18] MEDS: Losartan TAB* 25 MG G TUBE SCH ×2 (09:28→21:16)
--- NOTE | 2016-10-18 09:38 | RAD ---
INDICATION: Congestion. COMPARISON: Comparison is made with a prior chest x-ray study from October 16, 2016. TECHNIQUE: A portable view of the chest was obtained. FINDINGS: There is a nasogastric tube which demonstrates normal course and projects over the upper abdomen in the midline. There is a central venous catheter entering from the left subclavian approach. The catheter tip projects in the right paratracheal region. The heart is within normal limits in size. The lungs are clear. There has been interval resolution of small by basilar infiltrates. No pleural effusion is seen. IMPRESSION: NO EVIDENCE FOR ACUTE DISEASE.
[2016-10-18] MEDS: ceFAZolin 2 GM PREMIX(*) 2 GM/50 ML BAG IVPB SCH ×2 (15:31→21:16)
[2016-10-19] MEDS: hydrALAZINE IV* 20 MG/ML VIAL IV SLOW PU PRN (05:21)
[2016-10-19] MEDS: Metoprolol Tartrate TAB* 50 mg G TUBE SCH ×3 (05:47→21:45)
[2016-10-19] MEDS: ceFAZolin 2 GM PREMIX(*) 2 GM/50 ML BAG IVPB SCH ×3 (05:47→21:45)
[2016-10-19 07:40] LABS: Hematocrit 28 % (35-47); Hemoglobin 9.2 g/dl (12.0-16.0); Mean Corpuscular HGB Conc 34 g/dl (31-36); Mean Corpuscular Hemoglobin 30 pg (27-31); Mean Corpuscular Volume 89 fL (80-97); Mean Platelet Volume 8 um3 (7.4-10.4); Red Cell Distribution Width 14 % (10.5-15)
[2016-10-19 08:01] LABS: Calcium 8.6 mg/dL (8.6-10.3); EGFR African American 153.5 (>60); EGFR Non-African American 119.3 (>60); Magnesium 2.4 mg/dL (1.9-2.7); Phosphorus 3.5 mg/dL (2.5-5.0); Potassium 3.7 mmol/L (3.5-5.0)
[2016-10-19] MEDS: Losartan TAB* 25 MG G TUBE SCH ×2 (09:10→20:20)
[2016-10-19] MEDS: amLODIPine TAB* 5 MG G TUBE SCH (09:11)
--- NOTE | 2016-10-19 10:33 | PN ---
Progress Note - Progress Note SOAP: Subjective: S/p right craniotomy for ICH evacuation, POD #12. Rebleed in previous ICH cavity on POD #8. Improving. Opens eyes spontaneously, left more than right this morning. Right upper and lower extremity movements more frequent. Able to follow simple commands. ] Objective: [ Vital Signs: Temp Pulse Resp BP Pulse Ox 100.1 F 91 25 143/61 95 10/19/16 10:00 10/19/16 10:00 10/19/16 10:00 10/19/16 10:00 10/19/16 10:00 General: More alert today. Breathing more easily. Neuro: Able to follow simple commands of thumbs up, wiggle toes and squeeze hand on the right. Right pupil, 2mm, left 3mm. Left upper and lower extremity movements minimal. Incision: Intact, no swelling or infection. Laboratory Results - last 24 hr 10/19/16 10/19/16 05:50 05:50 WBC 10.0 RBC 3.10 L Hgb 9.2 L Hct 28 L MCV 89 MCH 30 MCHC 34 RDW 14 Plt Count 332 MPV 8 Neut % (Auto) 71.5 Lymph % (Auto) 20.2 L Glenn % (Auto) 6.0 Eos % (Auto) 1.7 Baso % (Auto) 0.6 Absolute Neuts (auto) 7.2 Absolute Lymphs (auto) 2.0 Absolute Monos (auto) 0.6 Absolute Eos (auto) 0.2 Absolute Basos (auto) 0.1 Absolute Nucleated RBC 0 Nucleated RBC % 0 Sodium 143 Potassium 3.7 Chloride 111 Carbon Dioxide 24 Anion Gap 8 BUN 23 Creatinine 0.50 L Est GFR ( Amer) 153.5 Est GFR (Non-Af Amer) 119.3 BUN/Creatinine Ratio 46.0 H Glucose 132 H Calcium 8.6 Phosphorus 3.5 Magnesium 2.4 ] Assessment: [S/p right craniotomy for ICH evacuation with recent rebleed. Improving. DNR/ DNI. No surgical intervention. ] Plan: [1. Continue neuro checks Q1hour. 2. Aspiration precautions, suctioning PRN. 3. Keep SBP less than 140. 4. Out of bed to chair. 5. Continue UTI treatment. 6. Continue Keppra 7. DNR/DNI]
--- NOTE | 2016-10-19 11:37 | PN ---
Progress Note - Progress Note Note: CRITICAL CARE MEDICINE DATE: TIME: 1100 SUBJECTIVE: Patient seen and examined. Family at bedside updated. PHYSICAL EXAM: Vital Signs: Reviewed. Neurologic: moving R arm >leg. following my commands. right gaze preference. Not audible. Able to protrude tongue HEENT: anicteric. Cardiovascular: S1, S2 Respiratory: mild rhonchi present. pattern stable but fast and left sided inhibition Abdomen: soft. nt Extremities: warm LABS: Reviewed. IMAGING: Reviewed. MEDICATIONS: Reviewed. ASSESSMENT: 80 F Acute ICH HTN Post op, non-thoracic, resp failure - liberated 10/11 Left hemiparesis Deconditioning Malnutrition - mild degree Dysphagia Dysarthria Re-current ich PLAN: Neurologic: stable. dec neuro checks to avoid delirum. Cardiovascular: maintaining SBP <140 on current regimen. continued. Respiratory: stable. but reserve will remain poor. Gastrointestinal: tf. d/w family. needs peg tube to push care forward. they are in agreement. sup Renal/Metabolic: ziegler for now. f/u needs as sodium coming down. 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 Will need ziegler out soon prior to dc anyway. Hematology: stable. resume hsq q12 Endocrine: glu ok Musculoskeletal: pt f/u. Psych/Social: family updated Supportive and preventative care as ordered. SUP: ppi VTE prophylaxis: scds. hsq Ziegler catheter today and out later or tomorrow Disposition: ICU today Code Status: DNR/DNI Critical Care Time: 25min [place] Blankenship DO
[2016-10-19] MEDS: Acetaminophen ADULT LIQ* 650 MG/20.3 ML UDC PO PRN (15:18)
--- NOTE | 2016-10-19 16:12 | CONS ---
CONSULTATION REPORT: DATE OF CONSULT: 10/19/16 INDICATION FOR CONSULTATION: Dysphagia and PEG tube placement. REQUESTING PHYSICIAN: Dr. Blankenship. NARRATIVE: Mrs. Soriano is a 80-year-old female who unfortunately had an intracerebral hemorrhage approximately a week to a week and a half ago. She did undergo a craniotomy. She now has neurological deficits including dysphagia. The primary care team and have requested a PEG tube placement. She is being fed by an NG tube at this point. She is nonverbal. No family members are present to discuss the case with at this point. PAST MEDICAL HISTORY: Significant for shingles. ALLERGIES: She has no known drug allergies. FAMILY HISTORY: Coronary artery disease. REVIEW OF SYSTEMS: Unable to obtain. PHYSICAL EXAM: Temperature is 100.3, blood pressure is 124/59. General: Nonverbal. No apparent distress. HEENT: Mucous membranes are moist without lesions, ulcers, or exudates. Head does have a craniotomy incision. Neck is supple. Trachea is midline. Heart: Regular rate and rhythm. Lungs: Clear to auscultation. Abdomen: Positive bowel sounds. Soft, nontender, nondistended. No hepatosplenomegaly, masses, rebound, or guarding. Skin: Warm and dry. LABORATORY DATA: Of note, white count is 10, hemoglobin 9.2, platelets of 332, INR is 1.02. ASSESSMENT AND PLAN: A 80-year-old female with an intracerebral hemorrhage, status post craniotomy and neurological deficits including dysphagia. She does need a PEG tube. I will need to discuss this with her . I did call him , however, there was no answer. I will plan for the PEG tube placement tomorrow after I talk to the . Please turn off the tube feeds at 8 a.m. tomorrow morning. CC: Betsy Lofton MD* [id number]/[facility] #: [id number] [facility]ALTH SYSTEMMike
[2016-10-19] MEDS: Heparin VIAL(*) 5000 UNITS/ML VIAL (FIVE THOUSAND) SUBCUT SCH (20:23)
[2016-10-20] MEDS: hydrALAZINE IV* 20 MG/ML VIAL IV SLOW PU PRN ×2 (01:05→08:17)
[2016-10-20] MEDS: ceFAZolin 2 GM PREMIX(*) 2 GM/50 ML BAG IVPB SCH ×3 (06:06→22:29)
[2016-10-20] MEDS: Metoprolol Tartrate TAB* 50 mg G TUBE SCH ×3 (06:06→19:59)
[2016-10-20] MEDS: amLODIPine TAB* 5 MG G TUBE SCH (08:10)
[2016-10-20] MEDS: Losartan TAB* 25 MG G TUBE SCH ×2 (08:10→19:35)
[2016-10-20] MEDS: Heparin VIAL(*) 5000 UNITS/ML VIAL (FIVE THOUSAND) SUBCUT SCH ×2 (11:13→21:38)
--- NOTE | 2016-10-20 11:46 | PN ---
Progress Note - Progress Note SOAP: Subjective: [S/p right craniotomy for ICH evacuation, POD #13. Rebleed in previous ICH cavity on POD #8. Improving. Opens eyes spontaneously equally, able to make eye contact when asked. Right upper and lower extremity movements more frequent. Able to follow simple commands. Unable to communicate verbally. ] Objective: [ Vital Signs: Temp Pulse Resp BP Pulse Ox 99.0 F 83 18 139/59 95 10/20/16 11:00 10/20/16 11:00 10/20/16 11:00 10/20/16 11:00 10/20/16 11:00 General: Alert this morning. Breathing more easily. Neuro: Able to follow simple commands of thumbs up, two fingers up, wiggle toes and squeeze hand on the right. Pupils equal and reactive. Left upper and lower extremity movements minimal. Incision: Intact, no swelling or infection. Assessment: [S/p right craniotomy for ICH evacuation with recent rebleed. Improving. DNR/ DNI. No surgical intervention. PEG tube placement today.] Plan: [1. Continue neuro checks. 2. Aspiration precautions, suctioning PRN. 3. Keep SBP less than 140. 4. Out of bed to chair. 5. Continue UTI treatment. 6. Continue Keppra 7. DNR/DNI]
--- NOTE | 2016-10-20 12:38 | PN ---
Progress Note - Progress Note Note: CRITICAL CARE MEDICINE DATE: 10/20/16 TIME: 900 SUBJECTIVE: Patient seen and examined. Family at bedside updated. PHYSICAL EXAM: Vital Signs: Reviewed. Neurologic: about the same. attempted audible with nursing, not with me HEENT: anicteric. mm dry Cardiovascular: S1, S2 Respiratory: no rhonchi. pattern stable. Abdomen: soft. nt Extremities: warm LABS: Reviewed. IMAGING: Reviewed. MEDICATIONS: Reviewed. ASSESSMENT: 80 F Acute ICH HTN Post op, non-thoracic, resp failure - liberated 10/11 Left hemiparesis Deconditioning Malnutrition - mild degree Dysphagia Dysarthria Re-current ich PLAN: Neurologic: stable. change neuro checks to qshift. on keppra and can f/u needs at dispo Cardiovascular: maintaining SBP <140 on current regimen. Respiratory: stable. but will remain with poor reserve wand at aspiration risks Gastrointestinal: tf held for peg today. would f/u with nutriton for her tube feed regimen from there and advance her care. Renal/Metabolic: ziegler for now but can dc post procedural anesthesia. f/u Na tomorrow and look to keep above 140 via gtube as able Infectious Disease: ancef for 3 days for uti Hematology: stable. resume hsq q12 post procedure. Endocrine: glu ok Musculoskeletal: pt f/u. and rehab/snf needs Psych/Social: family updated. palliative to support. Supportive and preventative care as ordered. SUP: ppi VTE prophylaxis: scds. hsq Ziegler catheter out later Disposition: ICU today and potential floor later today Code Status: DNR/DNI Critical Care Time: 25min [place] Blankenship DO
[2016-10-20] MEDS ORDERED: fentaNYL* 50 MCG/ML 2 ML VIAL (100 MCG VIAL) ONE (14:31)
[2016-10-20] MEDS ORDERED: Midazolam* 1 MG/ML 5 ML VIAL (5 MG) ONE (14:32)
[2016-10-20] MEDS ORDERED: Metoprolol Tartrate IV* 1 MG/ML 5 ML VIAL IV PRN (16:47)
[2016-10-21] MEDS: ceFAZolin 2 GM PREMIX(*) 2 GM/50 ML BAG IVPB SCH ×3 (05:23→22:05)
[2016-10-21] MEDS: Metoprolol Tartrate TAB* 50 mg G TUBE SCH ×3 (05:24→22:05)
[2016-10-21 05:42] LABS: Hematocrit 27 % (35-47); Hemoglobin 9.1 g/dl (12.0-16.0); Mean Corpuscular HGB Conc 34 g/dl (31-36); Mean Corpuscular Hemoglobin 30 pg (27-31); Mean Corpuscular Volume 88 fL (80-97); Mean Platelet Volume 8 um3 (7.4-10.4); Red Blood Count 3.06 10^6/ul (4.0-5.4); Red Cell Distribution Width 14 % (10.5-15); White Blood Count 7.1 10^3/ul (3.5-10.8)
[2016-10-21 05:52] LABS: BUN/Creatinine Ratio 37.3 (8-20); Calcium 8.5 mg/dL (8.6-10.3); EGFR Non-African American 116.6 (>60); Magnesium 2.5 mg/dL (1.9-2.7); Phosphorus 3.8 mg/dL (2.5-5.0); Potassium 3.7 mmol/L (3.5-5.0)
[2016-10-21] MEDS: Losartan TAB* 25 MG G TUBE SCH ×2 (07:53→20:51)
[2016-10-21] MEDS: Heparin VIAL(*) 5000 UNITS/ML VIAL (FIVE THOUSAND) SUBCUT SCH ×2 (07:53→20:51)
[2016-10-21] MEDS: amLODIPine TAB* 5 MG G TUBE SCH (07:53)
--- NOTE | 2016-10-21 10:59 | PN ---
Subjective Date of Service: 10/21/16 Interval History: Patient laying in bed sleeping, awakes to stimuli, nods her head stating she hears me then falls back asleep. Per nurse the patient did communicate with him this morning. Family not at bedside and did not answer phone. Objective Active Medications: Acetaminophen (Tylenol Adult Liq*) 650 mg PO Q4H PRN PRN Reason: FEVER Last Admin: 10/19/16 15:18 Dose: 650 mg Acetaminophen (Tylenol Supp*) 650 mg AL Q6H PRN PRN Reason: INCREASED TEMP Last Admin: 10/12/16 06:06 Dose: 650 mg Albuterol (Ventolin 2.5 Mg/3 Ml Neb.Sharon*) 2.5 mg INH Q4H PRN PRN Reason: SOB/WHEEZING Last Admin: 10/14/16 03:56 Dose: 2.5 mg Amlodipine Besylate (Norvasc Tab*) 10 mg G TUBE DAILY [facility] Last Admin: 10/21/16 07:53 Dose: 10 mg Heparin Sodium (Porcine) (Heparin Vial(*)) 5,000 units SUBCUT Q12HR [facility] Last Admin: 10/21/16 07:53 Dose: 5,000 units Heparin Sodium (Porcine) (Heparin Flush Picc/Ml/Cvc(*)) 1 ml FLUSH 0600,1800 ABDIRASHID PRN Reason: Protocol Last Admin: 10/21/16 06:45 Dose: 1 ml Hydralazine HCl (Apresoline Iv*) 10 mg IV SLOW PU Q4H PRN PRN Reason: BLOOD PRESSURE Last Admin: 10/20/16 08:17 Dose: 10 mg Cefazolin Sodium/Dextrose (Kefzol Premix(*)) 2 gm in 50 mls @ 100 mls/hr IVPB Q8H [facility] Stop: 10/22/16 13:59 Last Admin: 10/21/16 05:23 Dose: 100 mls/hr Levetiracetam 750 mg/ Sodium (Chloride) 107.5 mls @ 440 mls/hr IVPB Q12H [facility] Last Admin: 10/21/16 07:53 Dose: 440 mls/hr Losartan Potassium (Cozaar Tab*) 50 mg G TUBE Q12H [facility] Last Admin: 10/21/16 07:53 Dose: 50 mg Metoprolol Tartrate (Lopressor Tab*) 50 mg G TUBE Q8HR ABDIRASHID Last Admin: 10/21/16 05:24 Dose: Not Given Metoprolol Tartrate (Lopressor Iv*) 5 mg IV Q6H PRN PRN Reason: BLOOD PRESSURE Ondansetron HCl (Zofran Inj*) 4 mg IV Q6H PRN PRN Reason: NAUSEA Vital Signs 10/20/16 10/20/16 10/20/16 11:00 12:00 13:00 Temperature 99.0 F 99.1 F 99.2 F Pulse Rate 83 78 86 Respiratory 22 23 25 Rate Blood Pressure 139/59 116/59 126/51 (mmHg) O2 Sat by Pulse 95 96 96 Oximetry 10/20/16 10/20/16 10/20/16 14:00 15:00 15:02 Temperature 99.1 F 99.3 F 99.3 F Pulse Rate 87 85 84 Respiratory 25 23 24 Rate Blood Pressure 133/57 128/61 130/55 (mmHg) O2 Sat by Pulse 96 97 96 Oximetry 10/20/16 10/20/16 10/20/16 15:05 15:10 15:15 Temperature 99.3 F 99.3 F 99.2 F Pulse Rate 87 85 90 Respiratory 20 22 20 Rate Blood Pressure 131/57 141/63 109/62 (mmHg) O2 Sat by Pulse 95 96 97 Oximetry 10/20/16 10/20/16 10/20/16 15:20 15:25 15:30 Temperature 99.2 F 99.2 F 99.2 F Pulse Rate 85 88 88 Respiratory 22 18 21 Rate Blood Pressure 129/52 109/69 88/45 (mmHg) O2 Sat by Pulse 95 96 96 Oximetry 10/20/16 10/20/16 10/20/16 15:32 15:35 15:40 Temperature 99.2 F 99.2 F 99.2 F Pulse Rate 90 90 87 Respiratory 19 25 23 Rate Blood Pressure 127/58 125/56 126/58 (mmHg) O2 Sat by Pulse 96 96 97 Oximetry 10/20/16 10/20/16 10/20/16 15:45 15:50 15:55 Temperature 99.2 F 99.0 F 99.2 F Pulse Rate 85 91 85 Respiratory 25 25 22 Rate Blood Pressure 106/57 121/61 121/60 (mmHg) O2 Sat by Pulse 96 98 96 Oximetry 10/20/16 10/20/16 10/20/16 16:00 16:12 17:00 Temperature 99.3 F 99.1 F Pulse Rate 84 93 Respiratory 24 21 25 Rate Blood Pressure 115/63 127/67 (mmHg) O2 Sat by Pulse 97 97 Oximetry 10/20/16 10/20/16 10/20/16 18:00 19:00 20:00 Temperature 98.5 F 98.7 F 99.2 F Pulse Rate 84 83 85 Respiratory 21 24 20 Rate Blood Pressure 116/64 122/63 128/58 (mmHg) O2 Sat by Pulse 97 95 95 Oximetry 10/20/16 10/20/16 10/21/16 22:05 23:45 05:02 Temperature 98.8 F 98.6 F Pulse Rate 85 89 Respiratory 28 28 20 Rate Blood Pressure 139/57 140/71 (mmHg) O2 Sat by Pulse 100 96 Oximetry 10/21/16 10/21/16 07:38 08:00 Temperature 98.6 F Pulse Rate 87 Respiratory 20 20 Rate Blood Pressure 145/72 (mmHg) O2 Sat by Pulse 97 Oximetry Appearance: 80 yo female laying in bed rresting, awakes to physical stimuli - appears to hear me and follows a command. Eyes: No Scleral Icterus, PERRLA Ears/Nose/Mouth/Throat: NL Teeth, Lips, Gums, Mucous Membranes Moist Neck: NL Appearance and Movements; NL JVP Respiratory: Symmetrical Chest Expansion and Respiratory Effort, Clear to Auscultation Cardiovascular: NL Sounds; No Murmurs; No JVD, RRR Abdominal: NL Sounds; No Tenderness; No Distention Extremities: No Clubbing, Cyanosis, - - left arm 1+ gneralized edema Neurological: - - alert, drowsy appearing to be sleeping, awakes with simuli - follows commands. Pupils equal round and reactive, left hemiparesis noted. Lines/Tubes/Other Access: Clean, Dry and Intact Peripheral IV, Clean, Dry and Intact Percuteneous Feeding Tube - PEG Nutrition: - - PEG Result Diagrams: 10/21/16 05:20 10/21/16 05:20 Microbiology and Other Data: Microbiology 10/16/16 09:17 Urine Culture - Final Urine Escherichia Coli Staphylococcus Aureus 10/07/16 17:15 Nasal Screen MRSA (PCR)([facility]) - Final Nasal Mrsa Negative Assess/Plan/Problems-Billing Assessment: 80 yo female who has a limited PMH who was admitted on 10/07 found to have a ICH requiring craniotomy with evacuation complicated by a rebleed with residual neurological deficits including dysphagia now s/p PEG tube placement - Patient Problems (1) ICH (intracerebral hemorrhage) Comment: s/p ICH with evacuation and crani POD #14 and rebleed POD #9 Pt has continued left hemiparesis with dysphagia now s/p PEG tube placement POD #1. Per GI nutrition consult and is ok to use PEG. Blood pressure goal SBP <140 Aspiration precautions Neuro checks Continue Keppra PT/OT (2) UTI (urinary tract infection) Comment: - urine cx growing ecoli, staph - continue ancef, last dose 10/22 (3) Dysphagia Comment: - PEG placed by GI 10/20 - nutrition consult - aspiration precautions (4) HTN (hypertension) Comment: - - Goal to keep SBP <140. Continue Norvasc 10 mg daily, Metoprolol 50 mg Q8hr, Losartan 50 mg Q12hr, and hydralazine prn. (5) DVT prophylaxis Comment: HSQ (6) DNR (do not resuscitate) Comment: DNR/DNI Status and Disposition: inpatient. Dispo per Neuro surgery. Hospital Medicine co-medical managing Family not at bedside, did try morena all but no identifying answering machine
--- NOTE | 2016-10-21 12:45 | PRO ---
PROCEDURE REPORT: DATE OF PROCEDURE: 10/20/16 PROCEDURE: EGD with PEG tube placement. INDICATION: Intracerebral hemorrhage, left-sided paralysis, dysphagia. REQUESTING PHYSICIAN: Dr. Blankenship in the ICU. DESCRIPTION OF PROCEDURE: After the EGD and PEG tube placement procedure, including the risks, bene fits, and alternatives, not limited to perforation, surgery, and/or were explained to Mrs. Mateo haskins and her family including daughter and , written consent was then obtained. IV medication was given and cefazolin also had been given. She has been on cefazolin every 12 hours over the past few days. She was sedated with 50 micrograms IV fentanyl, 4 mg IV Versed. The adult gastroscope was inserted into the patient's mouth, advanced down the esophagus, into the stomach, into the distal d uodenum. The NG tube was in place and that was actually post pyloric. At that time, I withdrew the NG tube and I approximated the location in her left upper quadrant 5 fingerbreadths below and 5 fin gerbreadths towards her left side underneath her rib. I used finger indentation after air insufflat ion into the stomach. I did see good finger indentation and then used transillumination also to not e the area. Both finger indentation and transillumination were appropriate. Her overlying skin was thoroughly anesthetized and 1 cc of 1% lidocaine were used to anesthetize the skin. The finder nee dle was easily inserted into the patient's gastric lumen as noted on the video monitor. It was repl aced with a larger trocar needle again successfully placed into the gastric lumen and the blue wire was placed through the trocar needle and grasped with the scope and was withdrawn from the patient. The PEG tube was then tied on to the another blue wire and then was successfully pulled into place. A second-look endoscopy did confirm successful PEG tube placement within the gastric lumen. The angela acuna did tolerate the procedure well. Afterwards, she did seem to have some moaning likely seconda ry to pain, this began just after the PEG tube was pulled through her oral cavity. Second-look endo scopy did not reveal any damage within the esophagus, however. After approximately 5 to 10 minutes, the patient did seem to calm down nicely and appeared comfortable by the time we were ready to depa rt the intensive care unit. The patient was returned to the care of the intensive care unit staff. They were updated on her condition. I did speak to the and daughter afterwards too. IMPRESSION: 1. Complete upper endoscopy into the distal duodenum with successful percutaneous endoscopic gastros ricco tube placement. 2. Successful percutaneous endoscopic gastrostomy tube placement. 3. I will follow up with her first thing in the morning. If she is doing well, we can start using t he percutaneous endoscopic gastrostomy tube in the morning. [id number]/[facility] #: [id number]
[2016-10-22] MEDS: Metoprolol Tartrate TAB* 50 mg G TUBE SCH ×3 (05:37→22:43)
[2016-10-22] MEDS: ceFAZolin 2 GM PREMIX(*) 2 GM/50 ML BAG IVPB SCH (05:37)
[2016-10-22 05:56] LABS: Hematocrit 29 % (35-47); Hemoglobin 9.8 g/dl (12.0-16.0); Mean Corpuscular HGB Conc 34 g/dl (31-36); Mean Corpuscular Hemoglobin 30 pg (27-31); Mean Corpuscular Volume 88 fL (80-97); Mean Platelet Volume 8 um3 (7.4-10.4); Red Blood Count 3.25 10^6/ul (4.0-5.4); Red Cell Distribution Width 14 % (10.5-15); White Blood Count 10.2 10^3/ul (3.5-10.8)
[2016-10-22 06:13] LABS: Calcium 8.6 mg/dL (8.6-10.3); EGFR African American 137.5 (>60); EGFR Non-African American 106.9 (>60); Magnesium 2.5 mg/dL (1.9-2.7)
[2016-10-22] MEDS: Heparin VIAL(*) 5000 UNITS/ML VIAL (FIVE THOUSAND) SUBCUT SCH ×2 (08:30→20:31)
[2016-10-22] MEDS: Acetaminophen ADULT LIQ* 650 MG/20.3 ML UDC PO PRN (08:31)
[2016-10-22] MEDS: amLODIPine TAB* 5 MG G TUBE SCH (08:31)
[2016-10-22] MEDS: Losartan TAB* 25 MG G TUBE SCH ×2 (08:31→22:42)
--- NOTE | 2016-10-22 10:40 | PN ---
Subjective Date of Service: 10/22/16 Interval History: Patient is sleeping on initial arrival did not wake to verbal stimui but did wake to physical stimulation. Family at bedside she waved and said "hi". Following commands. Denies pain, JAMA or vision changes. Continues to have left hemiparesis. Objective Active Medications: Acetaminophen (Tylenol Adult Liq*) 650 mg PO Q4H PRN PRN Reason: FEVER Last Admin: 10/22/16 08:31 Dose: 650 mg Acetaminophen (Tylenol Supp*) 650 mg IN Q6H PRN PRN Reason: INCREASED TEMP Last Admin: 10/12/16 06:06 Dose: 650 mg Albuterol (Ventolin 2.5 Mg/3 Ml Neb.Sharon*) 2.5 mg INH Q4H PRN PRN Reason: SOB/WHEEZING Last Admin: 10/14/16 03:56 Dose: 2.5 mg Amlodipine Besylate (Norvasc Tab*) 10 mg G TUBE DAILY [facility] Last Admin: 10/22/16 08:31 Dose: 10 mg Heparin Sodium (Porcine) (Heparin Vial(*)) 5,000 units SUBCUT Q12HR [facility] Last Admin: 10/22/16 08:30 Dose: 5,000 units Heparin Sodium (Porcine) (Heparin Flush Picc/Ml/Cvc(*)) 1 ml FLUSH 0600,1800 [facility] PRN Reason: Protocol Last Admin: 10/22/16 07:02 Dose: 1 ml Hydralazine HCl (Apresoline Iv*) 10 mg IV SLOW PU Q4H PRN PRN Reason: BLOOD PRESSURE Last Admin: 10/20/16 08:17 Dose: 10 mg Cefazolin Sodium/Dextrose (Kefzol Premix(*)) 2 gm in 50 mls @ 100 mls/hr IVPB Q8H [facility] Stop: 10/22/16 13:59 Last Admin: 10/22/16 05:37 Dose: 100 mls/hr Levetiracetam 750 mg/ Sodium (Chloride) 107.5 mls @ 440 mls/hr IVPB Q12H [facility] Last Admin: 10/22/16 08:28 Dose: 440 mls/hr Losartan Potassium (Cozaar Tab*) 50 mg G TUBE Q12H [facility] Last Admin: 10/22/16 08:31 Dose: 50 mg Metoprolol Tartrate (Lopressor Tab*) 50 mg G TUBE Q8HR [facility] Last Admin: 10/22/16 05:37 Dose: 50 mg Ondansetron HCl (Zofran Inj*) 4 mg IV Q6H PRN PRN Reason: NAUSEA Vital Signs 10/21/16 10/21/16 10/21/16 11:27 11:28 12:03 Temperature 99.0 F 99 F 98.0 F Pulse Rate 93 90 93 Respiratory 18 20 Rate Blood Pressure 134/70 134/70 137/68 (mmHg) O2 Sat by Pulse 100 100 Oximetry 10/21/16 10/21/16 10/21/16 15:52 19:42 20:00 Temperature 99.3 F 99.3 F Pulse Rate 73 86 Respiratory 20 18 16 Rate Blood Pressure 138/71 132/79 (mmHg) O2 Sat by Pulse 97 96 Oximetry 10/22/16 10/22/16 10/22/16 00:26 05:02 08:00 Temperature 99.7 F 98.6 F Pulse Rate 84 90 Respiratory 20 20 20 Rate Blood Pressure 121/59 134/70 (mmHg) O2 Sat by Pulse 90 98 Oximetry 10/22/16 08:04 Temperature 99.3 F Pulse Rate 81 Respiratory 20 Rate Blood Pressure 128/73 (mmHg) O2 Sat by Pulse 98 Oximetry Oxygen Devices in Use Now: Nasal Cannula - 2L NC Appearance: Alert and oriented to self and family. following commands Eyes: No Scleral Icterus, PERRLA Ears/Nose/Mouth/Throat: Clear Oropharnyx, Mucous Membranes Moist Neck: NL Appearance and Movements; NL JVP, Trachea Midline Respiratory: Symmetrical Chest Expansion and Respiratory Effort, Clear to Auscultation Cardiovascular: NL Sounds; No Murmurs; No JVD, RRR, - - left arm generalized edema Abdominal: NL Sounds; No Tenderness; No Distention, - - PEG tube intact - no noted erythema or skin breakdown noted around PEG insertion site Skin: No Rash or Ulcers, - - Frontal crani sari intact with no noted erythema noted, appears to be healing well. Neurological: Alert and Oriented x 3 Lines/Tubes/Other Access: Clean, Dry and Intact Central Line Nutrition: Taking PO's Result Diagrams: 10/22/16 05:35 10/22/16 05:35 Microbiology and Other Data: Microbiology 10/16/16 09:17 Urine Culture - Final Urine Escherichia Coli Staphylococcus Aureus 10/07/16 17:15 Nasal Screen MRSA (PCR)(ISAK) - Final Nasal Mrsa Negative Assess/Plan/Problems-Billing Assessment: 80 yo female who has a limited PMH who was admitted on 10/07 found to have a ICH requiring craniotomy with evacuation complicated by a rebleed with residual neurological deficits including dysphagia now s/p PEG tube placement - Patient Problems (1) ICH (intracerebral hemorrhage) Comment: s/p ICH with evacuation and crani POD #15 and rebleed POD #10 Pt has continued left hemiparesis with dysphagia now s/p PEG tube placement POD #2. Per GI nutrition consult and is ok to use PEG. Blood pressure goal SBP <140 Na+ low this am 131 - per Dr. Cabrera ok with this. Goal to Keep > 130. Recheck Na+ at 1600. Start free water per PEG BID to keep up with her hydration. Aspiration precautions Neuro checks Continue Keppra PT/OT (2) UTI (urinary tract infection) Comment: - urine cx growing ecoli, staph - continue ancef, last dose 10/22 (3) Dysphagia Comment: - PEG placed by GI 10/20 - nutrition consult - aspiration precautions (4) HTN (hypertension) Comment: - Well controlled on current regimen. - Goal to keep SBP <140. Continue Norvasc 10 mg daily, Metoprolol 50 mg Q8hr, Losartan 50 mg Q12hr, and hydralazine prn. (5) DVT prophylaxis Comment: HSQ (6) DNR (do not resuscitate) Comment: DNR/DNI Status and Disposition: inpatient. Dispo per Neuro surgery. Hospital Medicine co-medical managing Family at bedside.
[2016-10-22 17:28] LABS: BUN/Creatinine Ratio 30.2 (8-20); Calcium 8.7 mg/dL (8.6-10.3); EGFR African American 143.5 (>60); EGFR Non-African American 111.6 (>60); Potassium 3.9 mmol/L (3.5-5.0)
--- NOTE | 2016-10-23 04:11 | CONS ---
PALLIATIVE CARE CONSULT: DATE OF CONSULT: 10/20/16 PRIMARY CARE PHYSICIAN: Betsy Lofton MD REQUESTING PHYSICIAN FOR CONSULT: Domingo Blankenship DO HOSPITAL COURSE: This is a 80-year-old female, previously healthy, who presented to the emergency room on the after being found unresponsive. The patient was found to have a large right intracranial hemorrhage associated with mass effect, subarachnoid hemorrhage, and intraventricular hemorrhage. She was urgently taken to the OR for evacuation with Dr. Cabrera. She was intubated, given Mannitol, and admitted to the ICU post craniotomy. The patient was extubated on the and had an event of respiratory failure and was re- intubated. On the , she had a repeat head CT that showed progression of her intraventricular hemorrhage in the right frontotemporal intraparenchymal region, this was on the , measuring up to 8.7 cm with a midline shift and vasogenic edema. At that time, there was no further intervention recommended. The patient started back on hypertonic saline. She was on seizure prophylaxis with Keppra and remained intubated. The patient was successfully extubated the second time and has been able to protect her airway. She has been awake enough to have nonverbal interaction with movements of her right hand. The family states that she has been to wave and squeeze with the right hand and follow simple commands, but she has remained essentially nonverbal. She was also unable to pass a swallow evaluation. On my encounter, I met with the and the daughter, Dai, and they state that they are overwhelmed with her hospital course and frustrated that she had presented a week prior to her admission with the headache and has become severely ill since then. Their goal is for her to go to rehab to improve to get back home. We discussed the concern with her limited ability to participate in physical therapy and upon further reviewing therapy's notes, the patient is minimally responsive during most of her therapy sessions. I discussed my concern that she would not be able to rehab and that she would not improve much past where she is currently and that she would remain dependent on artificial nutrition without ever able to taking enough p.o. to maintain her nutritional needs. The family felt that they did not want to give up on her and wanted to keep trying to get her better. I discussed my concern that even if she did improve somewhat, she would still require 24-hour care and remain in intermediate, most likely feeding tube dependent. I discussed with them an alternative option of pulling the NG tube, allowing pleasure feeds, and allowing her to be on comfort measures with hospice involved. I also discussed that there is a significant mortality rate with having a feeding tube placed especially with someone who has had respiratory compromise in the past requiring intubation. On my encounter, the patient has remained somnolent, unable to wake, and follow any simple commands. Unable to obtain review of systems. PAST MEDICAL HISTORY: History of shingles. INPATIENT MEDICATIONS: 1. Tylenol 650 mg every 4 hours as needed. 2. Albuterol 2.5 mg every 4 hours as needed. 3. Heparin 5000 units subcu t.i.d. 4. Keppra 750 mg IV q.12. 5. Cefazolin 2 g every 8 hours. 6. Losartan 50 mg every 12 hours. 7. Metoprolol tartrate 50 mg q.8 hours. 8. Zofran 4 mg IV q.6 hours. 9. Amlodipine 10 mg daily. 10. Hydralazine 10 mg IV q.4 hours as needed for blood pressure. ALLERGIES: No known drug allergies. FAMILY HISTORY: Reviewed and noncontributory. SOCIAL HISTORY: The patient was living at home with her , Duy, who is her healthcare proxy. She has 2 grown children. No history of smoking. She was independent of her ADLs prior to admission. MOLST form is currently DNR/ DNI. REVIEW OF SYSTEMS: Unable to obtain due to the patient's altered mental status. PHYSICAL EXAM: Vitals: Temperature 99.1, pulse rate 79, respiratory rate 23, oxygen saturation 96% on room air, blood pressure 116/59. General: Somnolent, but awakes. Right gaze preference. HEENT: Oropharynx: Mucous membranes are dry. Pupils are equal and reactive. Neck: Supple. No lymphadenopathy. Cardiac: Regular rate and rhythm. No murmurs, rubs, or gallops. Respiratory: Some mild rhonchorous breath sounds. No increased work of breathing. Abdomen: Soft, nondistended. Extremities: No clubbing, cyanosis, or edema. Neurologic: Nonverbal. Unable to follow commands. More contracted on her left side. DIAGNOSTIC STUDIES/LAB DATA: White count 10.0, hemoglobin 9.2, hematocrit 28, platelets 332. Sodium 143, potassium 3.7, chloride 111, bicarb 24, BUN 23, creatinine 0.5. Most recent head CT on the showed no significant change in the size of the right frontoparietal lobe, intra-parenchymal hemorrhage with surrounding vasogenic edema, effacement of the right lateral ventricle, and the right-to- left midline shift has also not significantly changed from the previous CT of the brain. ASSESSMENT AND PLAN: This is a 80-year-old female with no significant past medical history, who presented on the after being found unresponsive and was found to have a large right frontotemporal hemorrhage, status post craniotomy. The patient's neurologic function has minimally improved. She has been awake intermittently and able to follow commands, but according to the note , she has been minimally responsive and minimally able to participate in PT. Today, there is plan for getting a PEG tube in place. I discussed the patient' s quality of life and the drastic change that has happened with her becoming now dependent on all of her ADLs and no longer returning to home with her family. I discussed options of management including comfort measures with the family. I think they are hoping that she can rehabilitate to the point of getting home despite my communication that I do not think this will ever be an option without her going home with 24-hour care. They are going to speak with Dr. Osborn, to discuss PEG tube today. I told them that I would follow up with them and I discussed that they should talk with the son as well to really focus on what the patient would want, living dependent in a intermediate with artificial nutrition and I will follow up after their discussion. If the patient does proceed with PEG tube and intermediate, she is a good candidate for the PATH referral and to be followed up as an outpatient as I do not expect her to do well with significant neurologic recovery. Thank you for this consultation. I will follow along with you. PATIENT TIME: Greater than 90 minutes spent doing the consultation, more than half the time spent in direct patient contact. CC: Betsy Lofton MD * [id number]/[facility] #: [id number] JERILYN
[2016-10-23] MEDS: Metoprolol Tartrate TAB* 50 mg G TUBE SCH ×3 (05:44→20:17)
[2016-10-23 07:39] LABS: Hematocrit 29 % (35-47); Hemoglobin 10.1 g/dl (12.0-16.0); Mean Corpuscular HGB Conc 35 g/dl (31-36); Mean Corpuscular Hemoglobin 31 pg (27-31); Mean Corpuscular Volume 89 fL (80-97); Mean Platelet Volume 8 um3 (7.4-10.4); Red Blood Count 3.27 10^6/ul (4.0-5.4); Red Cell Distribution Width 14 % (10.5-15); White Blood Count 7.2 10^3/ul (3.5-10.8)
[2016-10-23 07:55] LABS: BUN/Creatinine Ratio 51.9 (8-20); Calcium 8.6 mg/dL (8.6-10.3); EGFR African American 140.4 (>60); EGFR Non-African American 109.2 (>60)
[2016-10-23] MEDS: Heparin VIAL(*) 5000 UNITS/ML VIAL (FIVE THOUSAND) SUBCUT SCH ×2 (08:25→20:19)
[2016-10-23] MEDS: amLODIPine TAB* 5 MG G TUBE SCH (08:25)
[2016-10-23] MEDS: Losartan TAB* 25 MG G TUBE SCH ×2 (08:25→20:17)
[2016-10-23] MEDS: Acetaminophen ADULT LIQ* 650 MG/20.3 ML UDC PO PRN (08:31)
--- NOTE | 2016-10-23 17:15 | PN ---
Subjective Date of Service: 10/23/16 Interval History: Patient seen and examined at bedside. Pt is sleeping on initial arrival and woke to verbal stimuli. Pt not answering questions or following most commands, but able to look when asked. Continues to have left hemiparesis. Tele: Sinus rhythm, rate 70-80's. Family History: Unchanged from Admission Social History: Unchanged from Admission Past Medical History: Unchanged from Admission Objective Active Medications: Acetaminophen (Tylenol Adult Liq*) 650 mg PO Q4H PRN Reason: FEVER Acetaminophen (Tylenol Supp*) 650 mg VA Q6H PRN Reason: INCREASED TEMP Albuterol (Ventolin 2.5 Mg/3 Ml Neb.Sharon*) 2.5 mg INH Q4H PRN Reason: SOB/ WHEEZING Amlodipine Besylate (Norvasc Tab*) 10 mg G TUBE DAILY [facility] Heparin Sodium (Porcine) (Heparin Vial(*)) 5,000 units SUBCUT Q12HR [facility] Heparin Sodium (Porcine) (Heparin Flush Picc/Ml/Cvc(*)) 1 ml FLUSH 0600,1800 [facility] Reason: Protocol Hydralazine HCl (Apresoline Iv*) 10 mg IV SLOW PU Q4H PRN Reason: BLOOD PRESSURE Levetiracetam 750 mg/ Sodium (Chloride) 107.5 mls @ 440 mls/hr IVPB Q12H [facility] Losartan Potassium (Cozaar Tab*) 50 mg G TUBE Q12H [facility] Metoprolol Tartrate (Lopressor Tab*) 50 mg G TUBE Q8HR [facility] Ondansetron HCl (Zofran Inj*) 4 mg IV Q6H PRN Reason: NAUSEA Vital Signs 10/22/16 10/22/16 10/22/16 19:30 20:00 23:19 Temperature 99.5 F 98.4 F Pulse Rate 84 75 Respiratory 26 20 18 Rate Blood Pressure 115/53 120/61 (mmHg) O2 Sat by Pulse 96 95 Oximetry 10/23/16 10/23/16 10/23/16 03:42 07:52 08:26 Temperature 98.6 F 99.6 F Pulse Rate 83 73 Respiratory 18 18 Rate Blood Pressure 114/52 131/67 (mmHg) O2 Sat by Pulse 94 96 Oximetry 10/23/16 10/23/16 10/23/16 11:50 11:52 15:02 Temperature 98.0 F Pulse Rate 79 66 Respiratory 20 16 Rate Blood Pressure 136/71 123/58 (mmHg) O2 Sat by Pulse 97 98 Oximetry Oxygen Devices in Use Now: None Appearance: NAD, laying in bed Eyes: No Scleral Icterus, PERRLA Respiratory: Symmetrical Chest Expansion and Respiratory Effort, Clear to Auscultation Cardiovascular: NL Sounds; No Murmurs; No JVD, RRR Abdominal: NL Sounds; No Tenderness; No Distention Extremities: - - Left UE generalized edema Skin: - - PEG tube site benign. Frontal scalp incision well approximated with sari intact and open to air Neurological: - - Alert when awake. Unable to determine orientation Lines/Tubes/Other Access: Clean, Dry and Intact Central Line - site benign Result Diagrams: 10/23/16 07:26 10/23/16 07:26 Microbiology and Other Data: Microbiology 10/16/16 09:17 Urine Culture - Final Urine Escherichia Coli Staphylococcus Aureus 10/07/16 17:15 Nasal Screen MRSA (PCR)([facility]) - Final Nasal Mrsa Negative Assess/Plan/Problems-Billing Assessment: Ms. Soriano is a 80 yo female who has a limited PMH who was admitted on 10/07 found to have a ICH requiring craniotomy with evacuation complicated by a rebleed with residual neurological deficits including dysphagia now s/p PEG tube placement - Patient Problems (1) ICH (intracerebral hemorrhage) Code(s): I61.9 - NONTRAUMATIC INTRACEREBRAL HEMORRHAGE, UNSPECIFIED SNOMED Code(s): 932835298 Comment: - s/p ICH with evacuation and crani POD #16 and rebleed POD #11 - Pt has continued left hemiparesis with dysphagia now s/p PEG tube placement POD #3 - Per GI nutrition consult and is ok to use PEG. - Blood pressure goal SBP <140 - Na+ low this am 131 - per Dr. Cabrera ok with this. Goal to Keep > 130. Recheck Na+ in the morning - Start free water per PEG BID to keep up with her hydration. - Aspiration precautions - Continue Neuro checks - Continue Keppra - Continue PT/OT (2) UTI (urinary tract infection) Comment: - Urine cx growing ecoli, staph - Completed course of ABX, last dose 10/22 (3) Dysphagia Code(s): R13.10 - DYSPHAGIA, UNSPECIFIED SNOMED Code(s): 86647218 Comment: - PEG placed by GI 10/20 - Nutrition consult - Aspiration precautions (4) HTN (hypertension) Code(s): I10 - ESSENTIAL (PRIMARY) HYPERTENSION SNOMED Code(s): 17823654 Comment: - Well controlled on current regimen. - Goal to keep SBP <140. - Continue Norvasc 10 mg daily, Metoprolol 50 mg Q8hr, Losartan 50 mg Q12hr, and hydralazine prn. (5) DVT prophylaxis Code(s): BUW3663 - SNOMED Code(s): 128801617 Comment: - Heparin SQ (6) DNR (do not resuscitate) Comment: DNR/DNI Status and Disposition: Inpatient. Dispo per Neuro surgery. Hospital Medicine co-medical managing Family at bedside.
[2016-10-24] MEDS: Metoprolol Tartrate TAB* 50 mg G TUBE SCH ×2 (05:49→15:17)
[2016-10-24 07:52] VITALS: BP 119/67
[2016-10-24] MEDS: Heparin VIAL(*) 5000 UNITS/ML VIAL (FIVE THOUSAND) SUBCUT SCH (09:52)
[2016-10-24] MEDS: amLODIPine TAB* 5 MG G TUBE SCH (09:52)
[2016-10-24] MEDS: Losartan TAB* 25 MG G TUBE SCH (09:52)
--- NOTE | 2016-10-24 13:25 | PN ---
Progress Note - Progress Note SOAP: Subjective: [S/p right frontal craniotomy for ICH evacuation, POD#17. Rebleed in prior cavity on POD#8. Nonverbally responding to yes or no questions. Follows simple commands. Right upper and lower extremity movements improving. Left lower extremity movements infrequent; left upper extremity paralysis. Denies headache and pain elsewhere. ] Objective: [ Vital Signs: Temp Pulse Resp BP Pulse Ox 98.6 F 78 12 119/67 92 10/24/16 07:38 10/24/16 09:48 10/24/16 09:48 10/24/16 07:38 10/24/16 09:48 General: Alert this afternoon, no distress. Neuro: Able to give thumbs up and two fingers up in RUE. Able to wiggle toes in RLE. Denies sensation to LUE. Withdraws LLE to touch. Pupils equal and reactive. Incision: Intact and without swelling or infection. [place] removed without complication; patient tolerated well. ] Assessment: [S/p right craniotomy for ICH evacuation, POD #17 with rebleed in prior cavity on POD #8. Improving and neurologically stable at this time. No further surgical intervention. DNR/DNI. ] Plan: [1. Discharge to [facility] today. 2. Discontinue ziegler catheter. 3. Discussed follow up and plan with . 4. DNR/DNI]
--- NOTE | 2016-10-24 14:07 | DS ---
Discharge Summary: Date of Admission: 10/07/16 Date of Discharge 10/24/16 Discharge Diagnoses: 1. Right intracranial hemorrhage 2. Hypertension Special Procedures: 1. Right frontal craniotomy for ICH evacuation on 10/07/16 2. PEG tube placement on 10/20/16 Hospital Course: This 80 year old female presented to the [facility] unresponsive, nonverbal and with left hemiparesis on the morning of 10/07/16. CT brain revealed right intracranial hemorrhage with mass effect. Neurosurgery was consulted and Dr. Cabrera discussed treatment options and prognosis with the patient's . He consented to right frontal craniotomy surgery for evacuation of the ICH. On the day of admission, she was taken emergently to the OR where, under general anesthesia, a right frontal craniotomy for ICH evacuation operation was carried out. Subdural drain and intracranial pressure monitor were also placed during surgery in the OR. Post-operatively, she remained intubated and was admitted to the ICU. Post-op CT brain on 10/08/16 showed satisfactory evacuation of right ICH. She began right upper and lower extremity spontaneous movements while left side movements absent. Extubation was unsuccessfully attempted on 10/09/16 resulting in reintubation. Intracranial pressure remained low. On 10/10/16, subdural drain and intracranial pressure monitor were removed without complication. CT brain on 10/10/16 remained stable. On 10/12/16 the family decided the patient will be DNR/DNI. On 10/13/16 the patient was extubated successfully. Breathing was shallow and rapid with left chest wall weakness. She slowly became more alert over the next 2 days. On 10/15/16, CT brain revealed rebleed in the prior ICH cavity. No further surgery was performed. After rebleed, she returned to being less alert, not following commands and less RUE and RLE movements. However, over the next few days, she slowly began increase movements, follow commands including thumbs up, wiggle toes, squeeze hand all on the right. Left upper extremity paralysis remains. Dysphagia continued and consult for PEG tube placement was obtained on 10/19/16. Palliative care consult obtained on 10/20/16. She underwent PEG tube placement on 10/20/16. She has been working with physical therapy and occupational therapy. Today, she is able to follow simple commands in the RUE and RLE including wiggle toes, squeeze hand, two fingers up and thumbs up. Left hemiparesis remains. Withdraws to touch in the LLE. Denies sensation in the LUE. She is able to nonverbally answer yes or no questions. Denies pain. [place] removed today without complication. She is making a satisfactory recovery and is stable to be discharged to a nursing facility. Discharge Medications: 1. Keppra 750mg G tube every 12 hours 2. Norvasc 10mg G tube daily 3. Cozaar 50mg G tube every 12 hours 4. Metoprolol 50mg G tube every 8 hours Follow up: 1. Follow up with neurosurgery in 3 weeks: 16 [address] [place]
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
== END 2016-10-24 16:15 | DRG 23 ==
LOC: ED 09:41 → ICU 12:39 → ED 14:26 → ICU 14:53 → MEDTELE 10-20 21:34
PROVIDERS: ADMIT Internal Medicine Critical Care Medicine; ATTEND Internal Medicine Critical Care Medicine
PROC: 00H632Z Insertion of Monitoring Device into Cerebral Ventricle, Percutaneous Approach (ICD-10-PCS; 2016-10-07)
PROC: 00C70ZZ Extirpation of Matter from Cerebral Hemisphere, Open Approach (ICD-10-PCS; 2016-10-07)
PROC: 02HV33Z Insertion of Infusion Device into Superior Vena Cava, Percutaneous Approach (ICD-10-PCS; 2016-10-07)
PROC: 0DH67UZ Insertion of Feeding Device into Stomach, Via Natural or Artificial Opening (ICD-10-PCS; 2016-10-07)
PROC: 3E0G76Z Introduction of Nutritional Substance into Upper GI, Via Natural or Artificial Opening (ICD-10-PCS; 2016-10-07)
PROC: B548ZZA Ultrasonography of Superior Vena Cava, Guidance (ICD-10-PCS; 2016-10-07)
PROC: 4A103BD Monitoring of Intracranial Pressure, Percutaneous Approach (ICD-10-PCS; 2016-10-07)
PROC: 0T9B70Z Drainage of Bladder with Drainage Device, Via Natural or Artificial Opening (ICD-10-PCS; 2016-10-07)
PROC: 5A1945Z Respiratory Ventilation, 24-96 Consecutive Hours (ICD-10-PCS; 2016-10-07)
PROC: 0BH17EZ Insertion of Endotracheal Airway into Trachea, Via Natural or Artificial Opening (ICD-10-PCS; 2016-10-09)
PROC: 5A1945Z Respiratory Ventilation, 24-96 Consecutive Hours (ICD-10-PCS; 2016-10-09)
PROC: 0DH63UZ Insertion of Feeding Device into Stomach, Percutaneous Approach (ICD-10-PCS; principal; 2016-10-20)
PROC: 3E0G76Z Introduction of Nutritional Substance into Upper GI, Via Natural or Artificial Opening (ICD-10-PCS; 2016-10-20)
PROC: 0DJ08ZZ Inspection of Upper Intestinal Tract, Via Natural or Artificial Opening Endoscopic (ICD-10-PCS; 2016-10-20)
DX: I61.9 Nontraumatic intracerebral hemorrhage, unspecified (principal); J95.821 Acute postprocedural respiratory failure; J96.00 Acute respiratory failure, unspecified whether with hypoxia or hypercapnia; G93.40 Encephalopathy, unspecified; G93.6 Cerebral edema; R13.10 Dysphagia, unspecified; R13.12 Dysphagia, oropharyngeal phase; E87.0 Hyperosmolality and hypernatremia; B02.29 Other postherpetic nervous system involvement; I47.1 Supraventricular tachycardia; G81.94 Hemiplegia, unspecified affecting left nondominant side; E44.1 Mild protein-calorie malnutrition; E87.1 Hypo-osmolality and hyponatremia; N39.0 Urinary tract infection, site not specified; J30.2 Other seasonal allergic rhinitis; F32.9 Major depressive disorder, single episode, unspecified; Z82.49 Family history of ischemic heart disease and other diseases of the circulatory system; R29.723 NIHSS score 23; I10 Essential (primary) hypertension; I61.5 Nontraumatic intracerebral hemorrhage, intraventricular; I60.9 Nontraumatic subarachnoid hemorrhage, unspecified; Z68.23 Body mass index [BMI] 23.0-23.9, adult; R79.89 Other specified abnormal findings of blood chemistry; R47.1 Dysarthria and anarthria; Z66 Do not resuscitate; D64.9 Anemia, unspecified; R50.9 Fever, unspecified; B96.20 Unspecified Escherichia coli [E. coli] as the cause of diseases classified elsewhere; B95.61 Methicillin susceptible Staphylococcus aureus infection as the cause of diseases classified elsewhere
CPT/HCPCS: 36415; 70450; 71010; 80048; 80053; 80061; 81003; 81015; 83036; 83605; 83735; 84100; 84300; 84484; 85025; 85027; 85610; 85730; 86850; 86900; 86901; 87077; 87086; 87185; 87186; 87641; 93005; 93306; 94002; 94003; 94640; 94660; 94667; 94760; A9270-GY; C1713; C1776; G8996-GN-CN; G8997-GN-CJ; J0360; J0690; J1630; J1644; J1940; J2001; J2250; J2543; J2704; J3010; J3480; J7060

== ENCOUNTER 2017-06-08 04:36 | Emergency (ER) | payer MEDICARE, OTHER ==
[2017-06-08 05:22] LABS: ABS Basophils 0.1 10^3/ul (0-0.2); ABS Eosinophils 0.2 10^3/ul (0-0.6); ABS Lymphocytes 2.4 10^3/ul (1.0-4.8); ABS Neutrophils 4.6 10^3/ul (1.5-7.7); ABS Nucleated RBC 0 10^3/ul; Hematocrit 35 % (35-47); Lymphocyte % 29.7 % (25-47); Mean Corpuscular HGB Conc 35 g/dl (31-36); Mean Corpuscular Hemoglobin 30 pg (27-31); Mean Corpuscular Volume 87 fL (80-97); Mean Platelet Volume 8 um3 (7.4-10.4); Nucleated Red Blood Cells % 0; Platelet Count 252 10^3/ul (150-450); Red Blood Count 4.01 10^6/ul (4.0-5.4); Red Cell Distribution Width 14 % (10.5-15); White Blood Count 8.2 10^3/ul (3.5-10.8)
[2017-06-08 05:36] LABS: EGFR Non-African American 92.9 (>60)
[2017-06-08 06:05] VITALS: BP 108/50
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
== END 2017-06-08 06:42 | disposition home or self-care (01) ==
LOC: ED 04:36
DX: T65.91XA Toxic effect of unspecified substance, accidental (unintentional), initial encounter (principal); T21.44XA Corrosion of unspecified degree of lower back, initial encounter; R21 Rash and other nonspecific skin eruption; Y92.9 Unspecified place or not applicable
CPT/HCPCS: 36415; 80048; 85025; 99282

== ENCOUNTER 2018-10-08 09:49 | Inpatient (IN) | payer MEDICARE, OTHER ==
[2018-10-08] MEDS ORDERED: NS 0.9% 1000 ML** 1,000 ML IV.FLUID IV ONE (09:59)
[2018-10-08] MEDS ORDERED: Vancomycin(*) 1,500 MG in NS 0.9% 250 ML* 250 ML IVPB ONE (10:01)
[2018-10-08] MEDS ORDERED: Piperacillin/Tazobac ADVAN(*) 3.375 GM in NS 0.9% 100 ML* 100 ML IVPB ONE (10:01)
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
[2018-10-08] MEDS ORDERED: Acetaminophen SUPP* 650 MG SUPP PR ONE (10:11)
[2018-10-08 10:49] LABS: ABS Basophils 0 10^3/ul (0-0.2); ABS Eosinophils 0 10^3/ul (0-0.6); ABS Lymphocytes 2.1 10^3/ul (1.0-4.8); ABS Monocytes 0.7 10^3/ul (0-0.8); ABS Neutrophils 7.9 10^3/ul (1.5-7.7); ABS Nucleated RBC 0 10^3/ul; Eosinophil % 0.1 %; Hematocrit 30 % (33-41); Hemoglobin 8.8 g/dL (12.0-16.0); Lymphocyte % 19.2 %; Mean Corpuscular HGB Conc 29 g/dL (31-36); Mean Corpuscular Hemoglobin 26 pg (27-31); Mean Corpuscular Volume 89 fL (80-97); Mean Platelet Volume 10.1 fL (7.4-10.4); Nucleated Red Blood Cells % 0.2; Platelet Count 187 10^3/uL (150-450); Red Blood Count 3.41 10^6 /uL (3.70-4.87); Red Cell Distribution Width 20 % (10.5-15); White Blood Count 10.7 10^3/uL (3.5-10.8)
[2018-10-08 10:55] LABS: Albumin 1.9 g/dL (3.2-5.2); CO2 Carbon Dioxide 19 mmol/L (22-32)
[2018-10-08 11:01] LABS: ALT 36 U/L (7-52); Albumin/Globulin Ratio 0.8 (1-3); Alkaline Phosphatase 70 U/L (34-104); BUN/Creatinine Ratio 34.5 (8-20); Blood Urea Nitrogen 90 mg/dL (6-24); EGFR African American 21.3 (>60); EGFR Non-African American 17.6 (>60); Globulin 2.5 g/dL (2-4); Glucose 140 mg/dL (70-100); Total Protein 4.4 g/dL (6.4-8.9)
[2018-10-08 11:05] LABS: Sodium 167 mmol/L (135-145)
[2018-10-08] MEDS ORDERED: Acetaminophen ADULT LIQ* 650 MG/20.3 ML UDC ONE (11:15)
[2018-10-08] MEDS ORDERED: Acetaminophen ADULT LIQ* 650 MG/20.3 ML UDC PO ONE (11:16)
[2018-10-08 11:21] LABS: Activated Partial Thrombo Time 27.7 seconds (26.0-36.3); INR 1.11 (0.77-1.02)
[2018-10-08 11:23] LABS: Chloride 140 mmol/L (101-111)
[2018-10-08] MEDS ORDERED: Norepinephrine 16MCG/ML IVPRE* 4,000 MCG/250 ML BAG IV ONE (11:47)
[2018-10-08 11:49] LABS: Anion Gap 8 mmol/L (2-11)
[2018-10-08] MEDS: Norepinephrine 16MCG/ML IVPRE* 4,000 MCG/250 ML BAG IV SCH ×3 (11:49→20:41)
[2018-10-08] MEDS ORDERED: Acetaminophen ADULT LIQ* 650 MG/20.3 ML UDC PO PRN (12:17)
[2018-10-08 12:23] LABS: Urine Appearance Cloudy; Urine Bacteria Absent (Absent); Urine Bilirubin Negative (Negative); Urine Blood Negative (Negative); Urine Color Amber; Urine Glucose Negative (Negative); Urine Ketones Negative (Negative); Urine Nitrite Negative (Negative); Urine Protein 2+(100 mg/dL) (Negative); Urine Red Blood Cell 2+(6-10/hpf) (Absent); Urine Specific Gravity 1.021 (1.010-1.030); Urine Squamous Epithelial Cell Present (Absent); Urine Urobilinogen Negative (Negative); Urine White Blood Cell 3+(>20/hpf) (Absent)
[2018-10-08] MEDS ORDERED: Midazolam* 1 MG/ML 2 ML VIAL (2 MG) IV ONE (12:35)
[2018-10-08] MEDS ORDERED: Lactated Ringers 1000 ML Bag* 1,000 ML IV SCH (13:00)
[2018-10-08] MEDS ORDERED: Vancomycin per Pharmacy* NOTE FOLLOW UP SCH (13:00)
[2018-10-08 13:20] LABS: Albumin 2.2 g/dL (3.2-5.2); Albumin/Globulin Ratio 0.9 (1-3); BUN/Creatinine Ratio 32.4 (8-20); C Reactive Protein 18.19 mg/L (<8.01); Calcium 6.6 mg/dL (8.6-10.3); EGFR African American 21.2 (>60); EGFR Non-African American 17.6 (>60); Globulin 2.5 g/dL (2-4); Potassium 3.8 mmol/L (3.5-5.0); Total Bilirubin 0.7 mg/dL (0.2-1.0); Total Protein 4.7 g/dL (6.4-8.9)
[2018-10-08 13:27] LABS: Influenza B Molecular POSITIVE (Negative)
[2018-10-08 13:28] LABS: Troponin I 0.16 ng/mL (<0.04)
[2018-10-08] MEDS ORDERED: Vancomycin(*) 1,250 MG in NS 0.9% 250 ML* 250 ML IVPB ONE (13:30)
--- NOTE | 2018-10-08 13:47 | HP ---
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 According to the Son, she has been okay at home, no recent illness or change. Today he noted she was breathing faster and he belly was not normal. He called EMS for respiratory distress. He desnies any vomiting/fevers. Weakness+. On ER arrival patient was hypotensive 60s, tachycardic 90-100s, in respiratory distress, febrile 104.8, sats 92% on arrival, placed on NRM already. She initially arrived with DNR/DNI status ordered from previous records as per ER. She was started on sepsis protocol with >2L NS bolus, then additional 2-3L NS bolus, eventual levophed infusion for BP support. Given IV zosyn/vancomycin for abx. She has a ziegler, made urine, has loose stool/ diarrhea. Tachpneic on my arrival on NRM. I discussed with family and the Son ( Darrick) is HCP and wants all measures, no DNR/DNI. Patients is admitted to [facility] for an infection and unavailable now. All was discussed with Son including rescucitation, sepsis, prolonged ventilation and difficulty to wean given her overall neurological status from prior stroke, but we continued with intubation as per family wishes. She is intubated. On Levophed. 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, residual Left UE weakness s/p PEG PSHx: Right craniotomy [facility] 09/2016 Family History: cardiac disease Social History: Alcohol-none, Smoking-none, Drug use-none; lives at home with family, they are caretakers, was in [facility] till 11/2017 Allergies: Unknown Home Medications: Cyclobenzaprine TAB* [Flexeril 10 MG TAB*] 10 mg G TUBE BEDTIME PRN 09/30/16 [ History Confirmed 10/08/18] Cholecalciferol TAB* [Vitamin D TAB*] 5,000 unit G TUBE DAILY 10/08/18 [History Confirmed 10/08/18] Clotrimazole 1% CREAM* [Clotrimazole 1%*] 1 applic TOPICAL BID 10/08/18 [ History Confirmed 10/08/18] Lactose-Reduced Food/Fiber [Jevity 1.5 Vimal Liquid] 237 ml G TUBE DAILY 10/08/18 [History Confirmed 10/08/18] Lidocaine PATCH 5%* [Lidoderm 5% Patch*] 1 - 2 patch TRANSDERM DAILY 10/08/18 [ History Confirmed 10/08/18] Losartan TAB* [Cozaar TAB*] 50 mg G TUBE DAILY 10/08/18 [History Confirmed 10/08] Metoprolol Tartrate TAB* [Lopressor TAB*] 50 mg G TUBE DAILY 10/08/18 [History Confirmed 10/08/18] Mirtazapine TAB* [Remeron TAB*] 7.5 mg G TUBE BEDTIME 10/08/18 [History Confirmed 10/08/18] Mupirocin 2% CREAM* [Bactroban 2% CREAM*] 1 applic TOPICAL TID 10/08/18 [ History Confirmed 10/08/18] Nystatin CREAM* [Nystatin Cream*] 1 applic TOPICAL TID 10/08/18 [History Confirmed 10/08/18] Nystatin [Nyamyc] 30 gm TOPICAL BID 10/08/18 [History Confirmed 10/08/18] Silver Sulfadiazine 1%* [SILVadine 1%*] 1 applic TOPICAL BID 10/08/18 [History Confirmed 10/08/18] Wheat Dextrin [Benefiber] 1 stephen G TUBE DAILY 10/08/18 [History Confirmed ] Zolpidem TAB* [Ambien TAB*] 5 mg G TUBE BEDTIME PRN 10/08/18 [History Confirmed 10/08/18] levETIRAcetam [Levetiracetam] 7.5 ml G TUBE Q12HR 10/08/18 [History Confirmed ] Tele: sinus tachy Vitals: Vital Signs Temp 104.8 F 10/08/18 10:00 Pulse 91 10/08/18 11:07 Resp 41 10/08/18 11:07 BP 74/42 10/08/18 10:40 Pulse Ox 100 10/08/18 11:07 Intake & Output 10/07/18 10/08/18 10/08/18 18:59 06:59 18:59 Weight 72.575 kg O2/Vent: AC 14/450/+5/100% Infusions: Levophed 12mcg/min Current Medications: Acetaminophen (Tylenol Adult Liq*) 650 mg PO Q4H PRN PRN Reason: fever >102 Heparin Sodium (Porcine) (Heparin Vial(*)) 5,000 units SUBCUT Q8HR [facility] Norepinephrine Bitartrate (Levophed 16 Mcg/Ml Premix Bag*) 4,000 mcg in 250 mls @ 15 mls/hr IV .INITIAL RATE [facility] Last Admin: 10/08/18 11:49 Dose: 15 mls/hr Vancomycin HCl 1,250 mg/ (Sodium Chloride) 250 mls @ 166.667 mls/hr IVPB ONCE ONE Stop: 10/08/18 14:59 Piperacillin Sod/Tazobactam (Sod 3.375 gm/ Sodium Chloride) 100 mls @ 25 mls/ hr IVPB Q12H [facility] Lactated Ringer's (Lactated Ringers 1000 Ml Bag*) 1,000 mls @ 75 mls/hr IV PER RATE [facility] Levetiracetam (Keppra Liq*) 500 mg PO Q12H [facility] Pharmacy Consult (Vancomycin Per Pharmacy*) 1 note FOLLOW UP .VANC PER PHARMACY [facility] Physical Exam: Constitutional: intubated, not responsive, tachypneic/resp distress+, no diaphoresis Head: normocephalic, atraumatic Eyes: no pallor, no icterus ENT: DRY+ mucous membranes Neck: soft, supple, no jvd CVS: tachy, regular, no murmur Resp: bilateral air entry, no RRW, +acc muscle use in ER with abd breathing Abdomen/GI: soft, nontender, nondistended; PEG+ Ext/Msk: warm, pulses+, +edema Skin: miltiple DTI on left and midline in back; areas of multiple Stage II pressure wounds on left back and left medial portion of lower leg Neuro: not repsonsive, not alert, unable to assess orientation Labs: Laboratory Results - last 24 hr 10/08/18 10/08/18 10/08/18 10:25 10:25 10:33 WBC 10.7 RBC 3.41 L Hgb 8.8 L Hct 30 L MCV 89 MCH 26 L MCHC 29 L RDW 20 H Plt Count 187 MPV 10.1 Neut % (Auto) 74.0 Lymph % (Auto) 19.2 Coke % (Auto) 6.5 Eos % (Auto) 0.1 Baso % (Auto) 0.2 Absolute Neuts (auto) 7.9 H Absolute Lymphs (auto) 2.1 Absolute Monos (auto) 0.7 Absolute Eos (auto) 0 Absolute Basos (auto) 0 Absolute Nucleated RBC 0 Nucleated RBC % 0.2 INR (Anticoag Therapy) APTT Patient Temperature ABG pH ABG pH (Temp Correct) ABG pCO2 ABG pCO2 (Temp Corrct ABG pO2 ABG pO2 (Temp Correct ABG HCO3 ABG O2 Saturation ABG Base Excess Respiration Rate O2 Delivery Device Ventilator Type Vent Mode FiO2 Inspiratory Time PEEP Pressure Support Pressure Control EPAP IPAP BiPAP Sodium 167 H* Potassium TNP Chloride 140 H Carbon Dioxide 19 L Anion Gap 8 BUN 90 H Creatinine 2.61 H Est GFR ( Amer) 21.3 Est GFR (Non-Af Amer) 17.6 BUN/Creatinine Ratio 34.5 H Glucose 140 H Lactic Acid Calcium 7.0 L Total Bilirubin 0.40 AST TNP ALT 36 Alkaline Phosphatase 70 Troponin I C-Reactive Protein Total Protein 4.4 L Albumin 1.9 L Globulin 2.5 Albumin/Globulin Ratio 0.8 L Urine Color Urine Appearance Urine pH Ur Specific [place] Urine Protein Urine Ketones Urine Blood Urine Nitrate Urine Bilirubin Urine Urobilinogen Ur Leukocyte Esterase Urine WBC (Auto) Urine RBC (Auto) Ur Squamous Epith Cells Ur Transition Epith Cell Urine Bacteria Urine Yeast Urine Glucose Urine Ascorbic Acid Acetaminophen Influenza B (Rapid) Positive A 10/08/18 10/08/18 10/08/18 10:51 10:51 12:08 WBC RBC Hgb Hct MCV MCH MCHC RDW Plt Count MPV Neut % (Auto) Lymph % (Auto) Coke % (Auto) Eos % (Auto) Baso % (Auto) Absolute Neuts (auto) Absolute Lymphs (auto) Absolute Monos (auto) Absolute Eos (auto) Absolute Basos (auto) Absolute Nucleated RBC Nucleated RBC % INR (Anticoag Therapy) 1.11 H APTT 27.7 Patient Temperature ABG pH ABG pH (Temp Correct) ABG pCO2 ABG pCO2 (Temp Corrct ABG pO2 ABG pO2 (Temp Correct ABG HCO3 ABG O2 Saturation ABG Base Excess Respiration Rate O2 Delivery Device Ventilator Type Vent Mode FiO2 Inspiratory Time PEEP Pressure Support Pressure Control EPAP IPAP BiPAP Sodium Potassium Chloride Carbon Dioxide Anion Gap BUN Creatinine Est GFR ( Amer) Est GFR (Non-Af Amer) BUN/Creatinine Ratio Glucose Lactic Acid 2.7 H* Calcium Total Bilirubin AST ALT Alkaline Phosphatase Troponin I C-Reactive Protein Total Protein Albumin Globulin Albumin/Globulin Ratio Urine Color [place] Urine Appearance Cloudy Urine pH 6.0 Ur Specific [place] 1.021 Urine Protein 2+(100 mg/dl) A Urine Ketones Negative Urine Blood Negative Urine Nitrate Negative Urine Bilirubin Negative Urine Urobilinogen Negative Ur Leukocyte Esterase 2+ A Urine WBC (Auto) 3+(>20/hpf) A Urine RBC (Auto) 2+(6-10/hpf) A Ur Squamous Epith Cells Present A Ur Transition Epith Cell Urine Bacteria Absent Urine Yeast Present A Urine Glucose Negative Urine Ascorbic Acid * A Acetaminophen Influenza B (Rapid) 10/08/18 10/08/18 10/08/18 12:35 12:35 12:59 WBC RBC Hgb Hct MCV MCH MCHC RDW Plt Count MPV Neut % (Auto) Lymph % (Auto) Coke % (Auto) Eos % (Auto) Baso % (Auto) Absolute Neuts (auto) Absolute Lymphs (auto) Absolute Monos (auto) Absolute Eos (auto) Absolute Basos (auto) Absolute Nucleated RBC Nucleated RBC % INR (Anticoag Therapy) APTT Patient Temperature Not Reportable ABG pH 7.17 L* ABG pH (Temp Correct) Not Reportable ABG pCO2 54 H ABG pCO2 (Temp Corrct Not Reportable ABG pO2 170 H ABG pO2 (Temp Correct Not Reportable ABG HCO3 17.8 L ABG O2 Saturation 100.0 H ABG Base Excess -9.2 L Respiration Rate 14 O2 Delivery Device Vent Ventilator Type 450 Vent Mode Cmv FiO2 90 Inspiratory Time 1.0 PEEP 5 Pressure Support Not Reportable Pressure Control Not Reportable EPAP Not Reportable IPAP Not Reportable BiPAP Not Reportable Sodium 167 H* Potassium 3.8 Chloride 137 H Carbon Dioxide 22 Anion Gap 8 BUN 85 H Creatinine 2.62 H Est GFR ( Amer) 21.2 Est GFR (Non-Af Amer) 17.6 BUN/Creatinine Ratio 32.4 H Glucose 139 H Lactic Acid Calcium 6.6 L Total Bilirubin 0.70 AST 81 H ALT 48 Alkaline Phosphatase 78 Troponin I 0.16 H* C-Reactive Protein 18.19 H Total Protein 4.7 L Albumin 2.2 L Globulin 2.5 Albumin/Globulin Ratio 0.9 L Urine Color Urine Appearance Urine pH Ur Specific [place] Urine Protein Urine Ketones Urine Blood Urine Nitrate Urine Bilirubin Urine Urobilinogen Ur Leukocyte Esterase Urine WBC (Auto) Urine RBC (Auto) Ur Squamous Epith Cells Ur Transition Epith Cell Urine Bacteria Urine Yeast Urine Glucose Urine Ascorbic Acid Acetaminophen < 15 Influenza B (Rapid) 10/08/18 14:05 WBC RBC Hgb Hct MCV MCH MCHC RDW Plt Count MPV Neut % (Auto) Lymph % (Auto) Coke % (Auto) Eos % (Auto) Baso % (Auto) Absolute Neuts (auto) Absolute Lymphs (auto) Absolute Monos (auto) Absolute Eos (auto) Absolute Basos (auto) Absolute Nucleated RBC Nucleated RBC % INR (Anticoag Therapy) APTT Patient Temperature ABG pH ABG pH (Temp Correct) ABG pCO2 ABG pCO2 (Temp Corrct ABG pO2 ABG pO2 (Temp Correct ABG HCO3 ABG O2 Saturation ABG Base Excess Respiration Rate O2 Delivery Device Ventilator Type Vent Mode FiO2 Inspiratory Time PEEP Pressure Support Pressure Control EPAP IPAP BiPAP Sodium Potassium Chloride Carbon Dioxide Anion Gap BUN Creatinine Est GFR ( Amer) Est GFR (Non-Af Amer) BUN/Creatinine Ratio Glucose Lactic Acid Calcium Total Bilirubin AST ALT Alkaline Phosphatase Troponin I C-Reactive Protein Total Protein Albumin Globulin Albumin/Globulin Ratio Urine Color Yellow Urine Appearance Cloudy Urine pH 6.0 Ur Specific [place] 1.017 Urine Protein 2+(100 mg/dl) A Urine Ketones Negative Urine Blood 2+ A Urine Nitrate Negative Urine Bilirubin Negative Urine Urobilinogen Negative Ur Leukocyte Esterase 2+ A Urine WBC (Auto) 3+(>20/hpf) A Urine RBC (Auto) 2+(6-10/hpf) A Ur Squamous Epith Cells Present A Ur Transition Epith Cell Present A Urine Bacteria 1+ A Urine Yeast Urine Glucose 1+(50 mg/dl) A Urine Ascorbic Acid * A Acetaminophen Influenza B (Rapid) Imaging: CXR 10/08 - ett above rubens, left effusion/atelectasis 10/08 CT brain pending officail read - no clear large acute pathology; previous Right sided area of hemorrhage with encephalomalacia+ 10/08 CT chest with small left basal atelectasis or small infiltrate; no sig effusion 10/08 CT abd/pelvis pending Assessment: 2y F w/pmhx of HTN, CVA 08/03 to Right ICH s/p craniotomy 09/2016, residual Left UE weakness s/p PEG; was taken out of [facility] last November 2017 and has been home since. According to the Son, she has been okay at home, no recent illness or change. Today he noted she was breathing faster and he belly was not normal. He called EMS for respiratory distress. He desnies any vomiting/fevers. Weakness+. On ER arrival patient was hypotensive 60s, tachycardic 90-100s, in respiratory distress, febrile 104.8, sats 92% on arrival , placed on NRM already. She initially arrived with DNR/DNI status ordered from previous records as per ER. She was started on sepsis protocol with >2L NS bolus, then additional 2-3L NS bolus, eventual levophed infusion for BP support. Given IV zosyn/vancomycin for abx. She has a ziegler, made urine, has loose stool/diarrhea. Tachpneic on my arrival on NRM. I discussed with family and the Son (Darrick) is HCP and wants all measures, no DNR/DNI. Patients is admitted to [facility] for an infection and unavailable now. All was discussed with Son including rescucitation, sepsis, prolonged ventilation and difficulty to wean given her overall neurological status from prior stroke, but we continued with intubation as per family wishes. -Acute Hypercapneic and Hypoxic Respiratory Failure -Severe Sepsis with Shock -Influenza B infection -Metabolic Encephalopathy -COLBY -Hypernatremia -Anemia h/o Right ICH s/p craniotomy with Right sided hemiparesis/RUE weakness s/p PEG Plan: Neuro- -poor mental status -CT brain negative for acute pathology, noted chronic changes -likely metabolic due to sepsis/hypernatremia/COLBY -neurochecks q4h -will keep versed 2mg IV q2h PRN for sedation/vent synchrony OR fentanyl 25mcg IV q1h prn for pain/sedation as needed -cont keppra for seizure proph 2/2 to previous ICH; Dec to Keppra 500mg IV BID renal dosing -Delirium prec CVS- -septic shock; s/p IVF bolus -cont LR 75cc/hr -Cont levophed and vasopressin -Titrate Pressors to Maintain MAP>65, and SBP>90 -Trend LA -IV abx -check cortisol; TTE for LV fxn -will need hypontonic fluids once volume status corrected for hypernatremia -trop mildly elevated 0.16; EKG wiht mild twave inversions; trend q6h x2 Resp- -intubated; AC 14/450/+5/100% -ABG last reviewed; combination of acute hypercapnea, hypoxia and metabolic acidosis -CXR/CT chest wtih left basal atelectasis and small infiltrate only -no wheezing -Wean Fio2 to keep sat>92% -Bronchodilators PRN, Aspiration prec, Pulmonary Toilet ID- febrile 104.8; wbc 10.7 -CT chest/CXr /9 small basal infiltrates+, Left>right -CT abd/pelvis 4/9 - fluid in colon+ -Influenza B+ swab -blood and urine cultures pedning; send legionella and strept ag also -Start Zosyn (day#1), Vanco 1.5gm x1, check trough tomorrow -start Tamiflu 30mg via Peg Daily (day#1) (renal dosing) GI- -NPO -OGT+ to suction -PEG+; hold feeds today -?aspiration -loose stool++; fecal containment system -GI prophylaxis - h2b Renal- -COLBY; elevated BUN, clinically dry with Hypernatremia; liekly pre-renal azotemia from volume depletion, poor po intake -s/p 4-5L NS; start LR infusion 75cc/hr -repeat BMP at 4pm, then 10pm tonight -K okay; will follow trend -trend LA -check Mg level -ziegler+ -strict I/O, replete to keep K>4, Mg>2 -ziegler as indicated Heme- anemia; acute drop in h/h; last hg 11.7 08/2018; now 8.8 -check stool occult; check b12/folate and iron panel, ldh -plt low normal, monitoring -DVT proph with SCD and heparin sq Endo- Maintain BG<200, insulin protocol as needed; check cortisol and tsh level Musculsk- pressure ulcer prophylaxis. Bedrest. Wounds- multiple DTIs on left posterior and open Stage II wounds; will need wound care. likely to have been poorly cared for? diffuse areas of erythema noted Nutrition- NPO today DVT prophylaxis: SCD, heparin sq GI prophylaxis: h2b Central Line: RIJ 10/08 Arterial Line: Right rad 10/08 Ziegler Cathetor: yes Fecal containment system+ Disposition: Admit to ICU; Patient requires Critical Care/ICU for Resp failure req intubation, septic shock on pressors, COLBY EXpected LOS>2 midnights Patient Clinical Status: critical, guarded Code Status: FULL CODE; family has changed from DNR Total Critical Care time is 80 minutes, excluding procedures/teaching Shane Steward MD Book Jacket Cover Machine Operator (Electronically Signed)
[2018-10-08] MEDS: Heparin VIAL(*) 5000 UNITS/ML VIAL (FIVE THOUSAND) SUBCUT SCH ×2 (14:28→21:58)
[2018-10-08 15:03] LABS: Urine Appearance Cloudy; Urine Bacteria 1+ (Absent); Urine Bilirubin Negative (Negative); Urine Blood 2+ (Negative); Urine Color Yellow; Urine Glucose 1+(50 mg/dL) (Negative); Urine Ketones Negative (Negative); Urine Nitrite Negative (Negative); Urine Protein 2+(100 mg/dL) (Negative); Urine Red Blood Cell 2+(6-10/hpf) (Absent); Urine Specific Gravity 1.017 (1.010-1.030); Urine Squamous Epithelial Cell Present (Absent); Urine Transitional Epithelial Present (Absent); Urine Urobilinogen Negative (Negative); Urine White Blood Cell 3+(>20/hpf) (Absent)
[2018-10-08] MEDS ORDERED: Midazolam* 1 MG/ML 2 ML VIAL (2 MG) IV SLOW PU PRN (15:10)
--- NOTE | 2018-10-08 15:36 | PN ---
Progress Note - Progress Note Date of Service: 10/08/18 Note: Central Line Procedure Note Indication: venous access Diagnosis: septic shock, acute hypoxic and hypercapneic respiratory failure Performed by: Shane Steward MD Consent: Emergent [place] Protocol: Time-out was performed and the correct patient and site were verified - Prior labs/history was reviewed prior to procedure - Full sterile precautions with chlorhexidine/full drapes/gowns/gloves utilized - Right Internal Jugular Vein visualized with ultrasound - Vessel accessed under ultrasound guidance with return of nonpulsatile blood. A guidewire was passed into vessel and confirmed in vessel with ultrasound. 1 attempt was made to access vessel. Vessel was dilated and cathetor was passed over wire into vessel. All ports demonstrated good blood return and flushed. Catheter was sutured to site and dressing applied. Adequate hemostasis was achieved EBL <5 cc No immediate complications noted, patient tolerated procedure well. Post Procedure CXR: RIJ in place; tip ends in very prox RA, no PTX noted will reasses and adjust TLC as needed Shane Steward MD Nursing Home Director (Electronically Signed)
--- NOTE | 2018-10-08 15:37 | PN ---
Progress Note - Progress Note Date of Service: 10/08/18 Note: Arterial Line Procedure Note Indication: frequent arterial blood gases , invasive hemodynamic monitoring Diagnosis: septic shock, acute hypoxic and hypercapneic respiratory failure Performed by: Shane Steward MD Consent: Emergent [place] Protocol: Time-out was performed and the correct patient and site were verified - Prior labs/history was reviewed prior to procedure - Full sterile precautions with chlorhexidine/full drapes/gowns/gloves utilized - Right radial artery visualized with US - Vessel accessed with return of pulsatile blood. One attempt was made to access vessel. A cathetor was threaded over wire into vessel. Good arterial waveform was observed on monitor. - Arterial Catheter was sutured to site; dressing applied to site. EBL <3 cc No immediate complications noted, patient tolerated procedure well. Shane Steward MD General Lithographic Worker (Electronically Signed)
[2018-10-08] MEDS ORDERED: Perflutren Lipid Microsphere* 3 ML VIAL ONE (16:12)
[2018-10-08] MEDS: Vasopressin* 100 UNITS in D5W 250 ML BAG* 245 ML IVPB SCH (16:13)
[2018-10-08] MEDS ORDERED: Midazolam* 1 MG/ML 2 ML VIAL (2 MG) IV SLOW PU ONE (16:15)
[2018-10-08] MEDS ORDERED: fentaNYL* 50 MCG/ML 2 ML VIAL (100 MCG VIAL) IV SLOW PU ONE (16:16)
[2018-10-08] MEDS ORDERED: Midazolam* 1 MG/ML 5 ML VIAL (5 MG) ONE ×2 (16:18→16:50)
[2018-10-08] MEDS ORDERED: fentaNYL* 50 MCG/ML 2 ML VIAL (100 MCG VIAL) ONE (16:18)
[2018-10-08] MEDS: Piperacillin/Tazobac ADVAN(*) 3.375 GM in NS 0.9% 100 ML* 100 ML IVPB SCH (16:27)
[2018-10-08] MEDS ORDERED: Midazolam* 1 MG/ML 5 ML VIAL (5 MG) IV ONE (16:50)
[2018-10-08] MEDS ORDERED: Midazolam IV for DRIP* 100 MG in NS 0.9% 100 ML* 80 ML IV SCH (17:00)
[2018-10-08] MEDS: EPINEPHrine SYR 0.1MG/ML* 1 MG in D5W 250 ML BAG* 240 ML IV SCH ×3 (17:08→20:30)
[2018-10-08 17:30] LABS: Troponin I 0.18 ng/mL (<0.04)
[2018-10-08] MEDS ORDERED: VECURONIUM BROMIDE 10 MG INJ IV ONE (17:59)
[2018-10-08 18:17] LABS: % Iron Saturation 48 % (15-55); Iron 86 ug/dL (50-212); LDH 390 U/L (140-271); Total Iron Binding Capacity 181 mcg/dL (250-450); Transferrin 129 mg/dL (203-362)
[2018-10-08 18:25] LABS: TSH (Thyroid Stimulating Horm) 1.39 mcIU/mL (0.34-5.60)
[2018-10-08] MEDS: Oseltamivir SUSP* ORALSYR 6 MG/ML PO SCH (18:31)
[2018-10-08 18:33] LABS: Ferritin 118.3 ng/mL (11-307)
--- NOTE | 2018-10-08 18:35 | PN ---
Sepsis Event Evaluation Date of Evaluation: 10/08/18 Time of Evaluation: 16:00 Current Stage of Sepsis: Septic Shock Vital Signs - Last 12 Hours: Vital Signs - 12 hr Temp Pulse Resp BP Pulse Ox 10/08/18 17:28 38 10/08/18 17:01 84 95 10/08/18 16:46 83 94/56 94 10/08/18 16:31 84 49/30 94 10/08/18 16:28 22 10/08/18 16:16 89 92/54 90 10/08/18 16:00 84 92 10/08/18 15:16 84 98 10/08/18 15:00 87 20 91/62 97 10/08/18 14:45 98.1 F 84 82/60 97 10/08/18 14:36 97.5 F 87 91/55 96 10/08/18 14:09 98.4 F 91 14 84/41 100 10/08/18 14:02 98.4 F 89 99 10/08/18 14:00 98.4 F 86 80/36 100 10/08/18 13:59 98.4 F 91 86/38 100 10/08/18 13:50 36.9 F 88 14 84/41 100 10/08/18 13:12 98.4 F 89 104/58 100 10/08/18 13:07 98.4 F 87 106/61 100 10/08/18 13:01 98.4 F 85 98/58 100 10/08/18 13:00 98.4 F 86 100 10/08/18 12:57 98.4 F 85 89/53 100 10/08/18 12:52 98.4 F 83 88/50 100 10/08/18 12:46 98.4 F 82 93/50 100 10/08/18 12:41 98.4 F 78 83/52 100 10/08/18 12:39 98.4 F 80 77/49 99 10/08/18 12:36 98.4 F 77 60/38 97 10/08/18 12:32 98.4 F 73 67/42 99 10/08/18 12:27 98.6 F 10/08/18 12:22 98.6 F 79 54/34 97 10/08/18 12:17 98.8 F 76 73/45 100 10/08/18 12:11 98.6 F 76 39 68/43 100 10/08/18 12:06 98.6 F 75 39 73/40 100 10/08/18 12:05 98.6 F 76 40 69/43 100 10/08/18 12:00 98.4 F 81 36 97 10/08/18 11:52 97.9 F 82 42 55/35 97 10/08/18 11:46 97.0 F 88 40 64/35 98 10/08/18 11:42 96.3 F 90 41 62/36 100 10/08/18 11:37 89 41 82/45 99 10/08/18 11:33 84 41 75/33 99 10/08/18 11:27 92 40 65/37 96 10/08/18 11:22 94 40 71/33 95 10/08/18 11:16 93 41 68/41 97 10/08/18 11:13 91 42 72/34 99 10/08/18 11:07 91 41 100 10/08/18 11:00 89 38 100 10/08/18 10:40 89 41 74/42 100 10/08/18 10:34 84 31 68/54 95 10/08/18 10:29 91 50 75/36 92 10/08/18 10:20 92 53 71/41 92 10/08/18 10:10 92 43 76/45 95 10/08/18 10:00 104.8 F 91 9 66/35 96 10/08/18 09:58 59 Lactic Acid: 10/08/18 10/08/18 10:51 16:50 Lactic Acid 2.7 H* 2.1 H* - Cardiopulmonary Exam Capillary Refill: Immediate Respiratory: Symmetrical Chest Expansion and Respiratory Effort, Clear to Auscultation Cardiovascular: NL Sounds; No Murmurs; No JVD, RRR, No Edema - Peripheral Pulse Exam Radial Pulses: Bilateral Normal Pedal Pulses: Bilateral Normal Femoral Pulses: Bilateral Normal Popliteal Pulses: Bilateral Normal - Skin Exam Skin Exam: Normal Turgor - Bao Coma Scale Best Eye Response: 1 - None Best Motor Response: 1 - None Best Verbal Response: 1 - Intubated Coma Scale Total: 3.0 Assess/Plan/Problems-Billing Assessment:
[2018-10-08 18:36] LABS: Folate > 20.00 ng/mL (>3.99)
--- NOTE | 2018-10-08 19:30 | PN ---
Progress Note - Progress Note Date of Service: 10/08/18 Note: Currently on levo, vaso, epi for septic shock anuric currently sign vent dyssynchrony, given vec 5mg x1 dose; on versed 10mg/hr; start low dose propofol also pending repeat labs on 100% fio2 and peep 8 now critically ill; unstable Shane Steward MD
--- NOTE | 2018-10-08 20:52 | ECHO ---
Patient: SAM WIGGINS [facility] Rec#: [id number] : 1935 Date: 10/08/2018 Age: 82y Height: 165 cm / 65.0 in Weight: 72.6 kg / 160.0 lbs Sex: F BSA: 1.8 Room#: ICU 5 Admit Date#: 10/08/2018 Type: Inpatient Referring: Shane Steward Reading: Nii Romero MD Building Code Inspector: Radha Mccrary RN RDCS CC: Betsy Lofton MD Transthoracic Echocardiogram Indication: Hypotension, shock BP: 74/72 HR: 81 Rhythm: NSR Findings History: CVA, HTN. The patient was on a ventilator and a Levophed drip during the exam. Technical Comments: The study is technically limited due to poor acoustic windows. The study is technically limited due to patient body habitus. The study is technically limited due to patient being intubated and on a ventilator. Left Ventricle: The left ventricular chamber size is normal. Mild concentric left ventricular hypertrophy is observed. Global left ventricular wall motion and contractility are within normal limits. The left ventricle appears hyperdynamic. The estimated ejection fraction is greater than 65%. There is no consistent Doppler evidence of clinically significant diastolic dysfunction. Left Atrium: The left atrial chamber size is normal. Right Ventricle: The right ventricle is not well visualized. The right ventricular cavity size is normal. The right ventricular global systolic function is normal. Right Atrium: The right atrium is not well visualized. There is evidence of an atrial septal aneurysm. Aortic Valve: The aortic valve structure is not well visualized. The aortic valve leaflets are mildly thickened. There is no evidence of aortic regurgitation. There is no evidence of aortic stenosis. Mitral Valve: The mitral valve structure is not well visualized. The mitral valve leaflets are mildly thickened. There is no evidence of mitral regurgitation. There is no evidence of mitral stenosis. Tricuspid Valve: The tricuspid valve structure is not well visualized. Pulmonic Valve: The pulmonic valve structure is not well visualized. Pericardium: There is no significant pericardial effusion. Aorta: The ascending aorta is not well visualized. The aortic arch is not well visualized. There is no dilation of the aortic root. Pulmonary Artery: The main pulmonary artery is not well visualized. Venous: The venous system is not well visualized. The inferior vena cava is not visualized. Contrast: Definity was used to optimize study. A total of 5 ml of diluted Definity was given IV. Conclusions The study is technically limited due to patient being intubated and on a ventilator. Mild concentric left ventricular hypertrophy is observed. Global left ventricular wall motion and contractility are within normal limits. The left ventricle appears hyperdynamic. The estimated ejection fraction is greater than 65%. The right ventricular global systolic function is normal. There is no evidence of aortic stenosis. There is no evidence of mitral regurgitation. The tricuspid valve structure is not well visualized. The pulmonic valve structure is not well visualized. The ascending aorta is not well visualized. Measurements Name Value Normal Range IVSd (2D) 1.2 cm (0.6 - 1) LVPWd (2D) 1.2 cm (0.6 - 1) LVIDd (2D) 3.6 cm (3.6 - 5.4) Aortic Annulus 2 cm (1.4 - 2.6) Ao root diameter (2D) 3.2 cm (2.1 - 3.5) LA dimension (AP) 2D 3.4 cm (2.3 - 3.8) Name Value Normal Range MV E-wave Vmax 0.54 m/sec - MV deceleration time 264 msec - MV A-wave Vmax 1.1 m/sec - MV E:A ratio 0.5 ratio - LV septal e' Vmax 0.06 m/sec - LV lateral e' Vmax 0.07 m/sec - LV E:e' septal ratio 9 ratio - LV E:e' lateral ratio 7.7 ratio - Name Value Normal Range AV Vmax 1.6 m/sec - AV VTI 32.4 cm - AV peak gradient 10 mmHg - AV mean gradient 6 mmHg - LVOT Vmax 1.6 m/sec - LVOT VTI 31.1 cm - LVOT peak gradient 11 mmHg - LVOT mean gradient 6 mmHg -
[2018-10-08 21:05] LABS: Hematocrit 37 % (33-41); Hemoglobin 10.7 g/dL (12.0-16.0)
[2018-10-08 21:12] LABS: Troponin I 0.15 ng/mL (<0.04)
[2018-10-08 21:19] LABS: Anion Gap 10 mmol/L (2-11); BUN/Creatinine Ratio 32.5 (8-20); Blood Urea Nitrogen 87 mg/dL (6-24); CO2 Carbon Dioxide 18 mmol/L (22-32); Calcium 6.5 mg/dL (8.6-10.3); Chloride 134 mmol/L (101-111); EGFR African American 20.7 (>60); EGFR Non-African American 17.1 (>60); Glucose 265 mg/dL (70-100); Sodium 162 mmol/L (135-145)
[2018-10-08] MEDS ORDERED: KCL 10 MEQ/50 ML IVPREMIX* 0 MEQ/0 ML BAG ONE (21:38)
[2018-10-08] MEDS ORDERED: Sodium Bicarbonate 8.4%* 50 ML SYRINGE ONE (21:38)
[2018-10-08] MEDS: EPINEPHRINE IV SCH (21:49)
[2018-10-08] MEDS: D5W IV SCH (21:49)
[2018-10-08] MEDS ORDERED: Sodium Bicarbonate 8.4%* 50 ML SYRINGE IV ONE (21:50)
[2018-10-08] MEDS: KCL 20 MEQ/100 ML IVPREMIX* 20 MEQ/100 ML BAG IV SCH (21:58)
[2018-10-08] MEDS ORDERED: Calcium Gluconate INJ* 2 GM in NS 0.9% 100 ML* 100 ML IV ONE (22:00)
[2018-10-08] MEDS: Propofol* 100 ML IV SCH (22:03)
[2018-10-08] MEDS: fentaNYL* 50 MCG/ML 2 ML VIAL (100 MCG VIAL) IV SLOW PU PRN (22:12)
[2018-10-08] MEDS ORDERED: Sodium Bicarbonate 8.4% IV* 75 MEQ in D5W 1000 ML BAG* 1,000 ML IVPB SCH (22:30)
[2018-10-08] MEDS: levETIRAcetam LIQ* 500 MG/5 ML UDC PO SCH (22:35)
[2018-10-08] MEDS: Norepinephrine VIAL* 8 MG in NS 0.9% 500 ML* 492 ML IV SCH (22:53)
[2018-10-09] MEDS: KCL 20 MEQ/100 ML IVPREMIX* 20 MEQ/100 ML BAG IV SCH (00:33)
[2018-10-09 00:48] LABS: BUN/Creatinine Ratio 32.6 (8-20); Calcium 7.2 mg/dL (8.6-10.3); EGFR African American 21.6 (>60); EGFR Non-African American 17.9 (>60)
[2018-10-09 01:15] LABS: Urine Potassium Concentration 27.6 mmol/L
[2018-10-09 01:23] LABS: Urine Creatinine Concentration 34.74 mg/dL
[2018-10-09 02:10] LABS: BUN/Creatinine Ratio 32.7 (8-20); Calcium 6.8 mg/dL (8.6-10.3); EGFR African American 22.6 (>60); EGFR Non-African American 18.7 (>60); Potassium 3.3 mmol/L (3.5-5.0)
[2018-10-09] MEDS: Midazolam IV for DRIP* 100 MG in NS 0.9% 100 ML* 80 ML IV SCH ×3 (02:12→19:59)
[2018-10-09] MEDS: D5W IV SCH ×2 (02:12→08:53)
[2018-10-09] MEDS: EPINEPHRINE IV SCH ×5 (02:12→17:41)
[2018-10-09] MEDS: Piperacillin/Tazobac ADVAN(*) 3.375 GM in NS 0.9% 100 ML* 100 ML IVPB SCH ×2 (02:17→13:24)
[2018-10-09] MEDS ORDERED: KCL 20 MEQ/100 ML IVPREMIX* 20 MEQ/100 ML BAG IV ONE (03:00)
[2018-10-09] MEDS: Norepinephrine VIAL* 8 MG in NS 0.9% 500 ML* 492 ML IV SCH ×6 (03:15→20:00)
[2018-10-09] MEDS ORDERED: Vancomycin Random Level* NOTE FOLLOW UP SCH (06:00)
[2018-10-09 06:45] LABS: Fibrinogen 421.3 mg/dL (110.8-404.3); Hematocrit 32 % (33-41); Hemoglobin 9.5 g/dL (12.0-16.0); INR 1.25 (0.77-1.02); Mean Corpuscular HGB Conc 29 g/dL (31-36); Mean Corpuscular Hemoglobin 26 pg (27-31); Mean Corpuscular Volume 87 fL (80-97); Mean Platelet Volume 10.3 fL (7.4-10.4); Platelet Count 171 10^3/uL (150-450); Red Blood Count 3.71 10^6 /uL (3.70-4.87); Red Cell Distribution Width 18 % (10.5-15); White Blood Count 13.8 10^3/uL (3.5-10.8)
[2018-10-09 06:54] LABS: Albumin 1.9 g/dL (3.2-5.2); Albumin/Globulin Ratio 0.8 (1-3); BUN/Creatinine Ratio 32.9 (8-20); Calcium 6.8 mg/dL (8.6-10.3); EGFR African American 23.2 (>60); EGFR Non-African American 19.1 (>60); Globulin 2.3 g/dL (2-4); Indirect Bilirubin 0.5 mg/dL (0.3-1.0); Magnesium 1.8 mg/dL (1.9-2.7); Phosphorus 3.1 mg/dL (2.5-5.0); Potassium 3.9 mmol/L (3.5-5.0); Total Protein 4.2 g/dL (6.4-8.9)
[2018-10-09 06:58] LABS: Vancomycin Random 13.7 mcg/mL
[2018-10-09] MEDS: Heparin VIAL(*) 5000 UNITS/ML VIAL (FIVE THOUSAND) SUBCUT SCH ×3 (08:14→21:40)
[2018-10-09] MEDS: levETIRAcetam LIQ* 500 MG/5 ML UDC PO SCH ×2 (08:15→21:40)
[2018-10-09] MEDS: Oseltamivir SUSP* ORALSYR 6 MG/ML PO SCH (08:15)
[2018-10-09] MEDS ORDERED: Famotidine TAB* 20 MG PO SCH (09:00)
[2018-10-09] MEDS ORDERED: Magnesium Sulfate IV* 2 GM in NS 0.9% 100 ML* 100 ML IV ONE (09:02)
[2018-10-09] MEDS ORDERED: Vancomycin(*) 1,000 MG in NS 0.9% 250 ML* 250 ML IVPB ONE (12:00)
[2018-10-09] MEDS ORDERED: Albuterol 2.5 MG/3 ML NEB.SOL* (0.083%) INH PRN (16:37)
--- NOTE | 2018-10-09 16:46 | PN ---
Progress Note - Progress Note Date of Service: 10/09/18 Note: Progress Note -- Critical Care 24 hour events -noted yesterday events -remains intubated; more calm on vent, sedated, and breathing over set rate -on levo, vaso, epi infusion, coming down slowly -tmax 100.2 and decreasing -started to make urine overnight -loose stools+ -no other events noted overnight Tele: NSR Vitals: Vital Signs Temp 99.3 F 10/09/18 14:31 Pulse 94 10/09/18 16:01 Resp 29 10/09/18 15:00 BP 101/56 10/09/18 16:00 Pulse Ox 96 10/09/18 16:01 Intake & Output 10/08/18 10/09/18 10/09/18 18:59 06:59 18:59 Intake Total 3350 6098.3 2521 Output Total 72 1270 360 Balance 3278 4828.3 2161 Weight 78.018 kg 77.7 kg Intake: IV Fluids 3350 1495 135 D5%bicarb 252 KCL 317 Lactated Ringers 485 Normal Saline 85 135 bicarb 50 cagluc 120 zosyn 186 IVPB 419 Vancomycin 265 cagluc 104 zosyn 50 Medicated IV 4533.3 1967 CC - Epinephrine 2398 1001 CC - Norepinephrine/ 1582 814 Levophed CC - Vasopressin/ 515.3 55 Pitressin Versed 54 propofol 38 43 NG Tube Irrigate Amount 70 Output: NG Tube Drainage Amount 200 Ziegler 72 670 360 Liquid Stool 400 O2/Vent: AC 28/500/+8/80% Infusions: vaso 0.04, levophed 20, epi 6, versed 4mg/hr, propofol 10 Current Medications: Acetaminophen (Tylenol Adult Liq*) 650 mg PO Q4H PRN PRN Reason: fever >102 Famotidine (Pepcid Tab*) 20 mg PO DAILY REPLACED BY [facility] Last Admin: 10/09/18 08:15 Dose: 20 mg Fentanyl Citrate (Fentanyl*) 25 mcg IV SLOW PU Q1H PRN PRN Reason: PAIN Last Admin: 10/08/18 22:12 Dose: 25 mcg Heparin Sodium (Porcine) (Heparin Vial(*)) 5,000 units SUBCUT Q8HR REPLACED BY [facility] Last Admin: 10/09/18 13:24 Dose: 5,000 units Piperacillin Sod/Tazobactam (Sod 3.375 gm/ Sodium Chloride) 100 mls @ 25 mls/ hr IVPB Q12H REPLACED BY [facility] Last Admin: 10/09/18 13:24 Dose: 25 mls/hr Vasopressin 100 units/ (Dextrose) 250 mls @ 6 mls/hr IVPB Q24H REPLACED BY [facility]; Protocol Last Admin: 10/08/18 16:13 Dose: 6 mls/hr Propofol (Diprivan*) 100 mls @ 4.681 mls/hr IV .(Initial Rate) REPLACED BY [facility]; Protocol Last Admin: 10/08/18 22:03 Dose: 4.681 mls/hr Midazolam HCl 100 mg/ Sodium (Chloride) 100 mls @ 10 mls/hr IV Q10H REPLACED BY [facility]; Protocol Last Admin: 10/09/18 02:12 Dose: 8 mls/hr Epinephrine HCl 4 mg/ Sodium (Chloride) 1,000 mls @ 60 mls/hr IV Q16H ABDIRASHID; Protocol Norepinephrine Bitartrate 8 mg (/ Sodium Chloride) 500 mls @ 75 mls/hr IV Q6H ABDIRASHID; Protocol Levetiracetam (Keppra Liq*) 500 mg PO Q12H REPLACED BY [facility] Last Admin: 10/09/18 08:15 Dose: 500 mg Oseltamivir Phosphate (Tamiflu Susp* Oralsyr) 30 mg PO DAILY REPLACED BY [facility] Stop: 10/13/18 15:59 Last Admin: 10/09/18 08:15 Dose: 30 mg Pharmacy Consult (Vancomycin Per Pharmacy*) 1 note FOLLOW UP .VANC PER PHARMACY REPLACED BY [facility] Pharmacy Consult (Vancomycin Random Level*) 1 note FOLLOW UP 0600 REPLACED BY [facility] Physical Exam: Constitutional: intubated, sedated, no distress, no diaphoresis Head: normocephalic, atraumatic Eyes: no pallor, no icterus ENT: DRY+ mucous membranes Neck: soft, supple, no jvd CVS: regular, normal rate, no murmur Resp: bilateral air entry, no RRW, no acc muscle use Abdomen/GI: soft, nontender, nondistended; PEG+ Ext/Msk: warm, pulses+, +edema Skin: multiple DTI on left and midline in back; areas of multiple Stage II pressure wounds on left back and left medial portion of lower leg Neuro: sedated, intubated, pupils bilaterally reactive, cough+; limited neuro exam Labs: Imaging: CXR 10/08 - ett above rubens, left effusion/atelectasis 10/08 CT brain pending officail read - no clear large acute pathology; previous Right sided area of hemorrhage with encephalomalacia+ 10/08 CT chest with small left basal atelectasis or small infiltrate; no sig effusion 10/08 CT abd/pelvis pending 10/09 cxr - bilateral infiltrates+, left>right TTE 10/08 - LVEF 60%, no diastolic dysfxn, no valvular abn, no effusion Assessment: 2y F w/pmhx of HTN, 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 According to the Son, she has been okay at home, no recent illness or change. Today he noted she was breathing faster and he belly was not normal. He called EMS for respiratory distress. He desnies any vomiting/fevers. Weakness+. On ER arrival patient was hypotensive 60s, tachycardic 90-100s, in respiratory distress, febrile 104.8, sats 92% on arrival , placed on NRM already. She initially arrived with DNR/DNI status ordered from previous records as per ER. She was started on sepsis protocol with >2L NS bolus, then additional 2-3L NS bolus, eventual levophed infusion for BP support. Given IV zosyn/vancomycin for abx. She has a ziegler, made urine, has loose stool/diarrhea. Tachpneic on my arrival on NRM. I discussed with family and the Son (Darrick) is HCP and wants all measures, no DNR/DNI. Patients is admitted to [facility] for an infection and unavailable now. All was discussed with Son including rescucitation, sepsis, prolonged ventilation and difficulty to wean given her overall neurological status from prior stroke, but we continued with intubation as per family wishes. 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 Plan: Neuro- -currently sedated on versed and low dose propofol -no further paralytic was required -plan to decrease versed slowly as tolerated -no plan for sedation vacation today; will assess tomorrow if hemodyn and resp status allow for wakening; currnetly on 80-90% fio2 and peep and 3 pressors, so would be unsafe to lower and have her restless given yesterday events -likely was metabolic encephalopathy given Sepsis underlying/hypernatremia/COLBY -10/08 CT brain negative for acute pathology, noted chronic changes -neurochecks as per ICU policy -cont keppra for seizure proph 2/2 to previous ICH; Keppra 500mg liquid BID renal dosing -Delirium prec CVS- -septic shock; 2/2 to influenza B + aspiration pneumoina + Gram neg bacteremia -off IVF infusion receiving fluid from medication infusions >150cc/hr -cont levophed, vasopressin, epinephrine -Titrate Pressors to Maintain MAP>65, and SBP>90 -LA improved, check in AM -making urine now -IV abx -mild trop elevation, suspect nstemi from demand ischemia Resp- -intubated; AC 28/500/+8/80% -ABG 7.32/31/155; metabolic acidosis with resp compensation incomplete, hypoxia+ -CXR 4/10 - bilateral infiltrates+, L>R -10/08 CXR/CT chest wtih left basal atelectasis and small infiltrate only -IV abx and antivirals -Wean Fio2 to keep sat>92% -Bronchodilators PRN, Aspiration prec, Pulmonary Toilet ID- tmax 100.2, wbc 13 -CT chest/CXr 10/08 small basal infiltrates+, Left>right -cxr 10 - bilateral infiltrates -CT abd/pelvis 10/08 - fluid in colon+ -Influenza B+ swab -blood cx Proteus+ and aerococcus+ -Zosyn (day#2), Vanco (day#2), check random tomorrow again -Tamiflu 30mg via Peg Daily (day#2) (renal dosing) GI- -NPO -OGT+ to suction -PEG+; hold feeds today -?aspiration event first day on arrival to ER -loose stool++; fecal containment system -GI prophylaxis - h2b Renal- -COLBY; elevated BUN, clinically dry with Hypernatremia; liekly pre-renal azotemia from volume depletion, poor po intake and septic shock/bacteremia -Cr has plateued, K okay, Mg low, metabolic acidosis, LA improved -off more IVF, getting IVF from medications -cont pressors -making urine today at 30cc/hr -replete MgSulfate 2gm IV -strict I/O, replete to keep K>4, Mg>2 -ziegler as indicated Heme- anemia; 8-10 range -check stool occult; noted b12/folate normal, iron panel normal range, no ALONDRA -DVT proph with SCD and heparin sq Endo- Maintain BG<200, insulin protocol as needed -If next BG still >300 will start insulin infusion; hba1c 5.4; likely hyperglycemia from pressors and dextrose base infusions Musculsk- pressure ulcer prophylaxis. Bedrest. Wounds- multiple DTIs on left posterior and open Stage II wounds; wound care done. Nutrition- NPO DVT prophylaxis: SCD, heparin sq GI prophylaxis: h2b Central Line: RIJ 10/08 Arterial Line: Right rad 10/08 Ziegler Cathetor: yes Fecal containment system+ Disposition: Patient requires Critical Care/ICU for Resp failure req intubation , septic shock on pressors, COLBY Patient Clinical Status: critical, guarded Code Status: FULL CODE Total Critical Care time is 60 minutes, excluding procedures/teaching Shane Steward MD Garment Worker (Electronically Signed)
[2018-10-09] MEDS: NS 0.9% IV SCH ×3 (17:08→17:41)
[2018-10-09] MEDS: Propofol* 100 ML IV SCH (17:17)
--- NOTE | 2018-10-09 17:27 | CONSULT ---
Subjective Date of Service: 10/09/18 Interval History: Ms. Soriano is an 82 yo female with PMH significant for HTN, CVA with left UE residual weakness, and S/P peg tube with tube feeding. Noted to be breathing faster by family and was brought to the emergency room for evaluation. She was found to have acute hypoxic and hypercarbic respiratory failure, severe sepsis with shock, bilateral pneumonia suspected to be secondary aspiration etiology, proteus bacteremia, Influenza B, metabolic encephalopathy, COLBY, hypernatremia, and anemia. She is currently intubated and sedated in the ICU. She presented to the hospital with multiple areas of skin breakdown and deep tissue injury from home. Patient seen and examined at bedside. Family History: Unchanged from Admission Social History: Unchanged from Admission Past Medical History: Unchanged from Admission Review of Systems - Measurements Intake and Output: Intake and Output Last 24 Hours 10/07/18 10/08/18 10/09/18 10/10/18 06:59 06:59 06:59 06:59 Intake Total 9448.3 2521 Output Total 1342 360 Balance 8106.3 2161 Weight 171 lb 4.787 oz Intake: IV Fluids 4845 135 D5%bicarb 252 KCL 317 Lactated Ringers 485 Normal Saline 85 135 bicarb 50 cagluc 120 zosyn 186 IVPB 419 Vancomycin 265 cagluc 104 zosyn 50 Medicated IV 4533.3 1967 CC - Epinephrine 2398 1001 CC - Norepinephrine/ 1582 814 Levophed CC - Vasopressin/ 515.3 55 Pitressin Versed 54 propofol 38 43 NG Tube Irrigate Amount 70 Output: NG Tube Drainage Amount 200 Serrano 742 360 Liquid Stool 400 - Review of Systems General Comments: Unable to perform a ROS due to patient being sedated and intubated. Objective Active Medications: Acetaminophen (Tylenol Adult Liq*) 650 mg PO Q4H PRN Reason: fever >102 Albuterol (Ventolin 2.5 Mg/3 Ml Neb.Sharon*) 2.5 mg INH Q4H PRN Reason: SOB/ WHEEZING Famotidine (Pepcid Iv*) 20 mg IV SLOW PU DAILY ABDIRASHID Fentanyl Citrate (Fentanyl*) 25 mcg IV SLOW PU Q1H PRN Reason: PAIN Heparin Sodium (Porcine) (Heparin Vial(*)) 5,000 units SUBCUT Q8HR ABDIRASHID Piperacillin Sod/Tazobactam (Sod 3.375 gm/ Sodium Chloride) 100 mls @ 25 mls/ hr IVPB Q12H [facility] Vasopressin 100 units/ (Dextrose) 250 mls @ 6 mls/hr IVPB Q24H ABDIRASHID; Protocol Propofol (Diprivan*) 100 mls @ 4.681 mls/hr IV .(Initial Rate) ABDIRASHID; Protocol Midazolam HCl 100 mg/ Sodium (Chloride) 100 mls @ 10 mls/hr IV Q10H ABDIRASHID; Protocol Epinephrine HCl 4 mg/ Sodium (Chloride) 1,000 mls @ 60 mls/hr IV Q16H ABDIRASHID; Protocol Norepinephrine Bitartrate 8 mg (/ Sodium Chloride) 500 mls @ 75 mls/hr IV Q6H ABDIRASHID; Protocol Levetiracetam (Keppra Liq*) 500 mg PO Q12H [facility] Oseltamivir Phosphate (Tamiflu Susp* Oralsyr) 30 mg PO DAILY [facility] Stop: 10/13/18 15:59 Pharmacy Consult (Vancomycin Per Pharmacy*) 1 note FOLLOW UP .VANC PER PHARMACY [facility] Pharmacy Consult (Vancomycin Random Level*) 1 note FOLLOW UP 0600 [facility] Vital Signs 10/09/18 10/09/18 10/09/18 14:30 14:31 14:45 Temperature 99.3 F 99.3 F Pulse Rate 92 95 99 Respiratory Rate Blood Pressure 99/58 92/52 (mmHg) O2 Sat by Pulse 97 97 95 Oximetry 10/09/18 10/09/18 16:00 16:01 Temperature Pulse Rate 97 94 Respiratory Rate Blood Pressure 101/56 (mmHg) O2 Sat by Pulse 97 96 Oximetry Oxygen Devices in Use Now: Mechanical Ventilator Appearance: NAD, laying in bed Ears/Nose/Mouth/Throat: Mucous Membranes Moist Skin: - - See skin note below Neurological: - - Unresponsive Result Diagrams: 10/14/18 04:12 10/14/18 04:12 Microbiology and Other Data: Microbiology 10/08/18 12:08 Urine Culture - Final Urine No Growth (<1,000 CFU/mL) 10/08/18 10:51 Aerobic Blood Culture - Final Blood Venous Aerococcus Viridans Anaerobic Blood Culture - Preliminary Proteus Mirabilis Blood MRSA/MSSA (PCR) - Final Mrsa Negative S.aureus Negative 10/08/18 14:03 Nasal Screen MRSA (PCR) - Final Nasal Mrsa Not Detected 10/08/18 12:08 Legionella Urinary Antigen - Final Urine Negative Legionella Antigen Streptococcus pneumoniae Ag Screen - Final Negative S. pneumo Antigen Skin Deviation Note - Skin Deviation Findings Left medial wrist - Purplish discoloration, there is an area of the wound with a superficial open area with a red wound base. Area measures, 3 cm x 3 cm x 0.1 cm. No drainage. Surrounding skin with mild erythema. Right medial foot - There is an area of purplish discoloration, measuring 1.2 cm x 1 cm. The surrounding skin is intact, no erythema or drainage. Left lateral hip - There is a dept tissue injury with superfical open area. Suspect skin was removed when an Optifoam dressing was removed. The area measures 6.5 cm x 6.5 cm, x 0.1 cm. The wound base has a dark purplish discoloration with some surrounding red tissue. The skin surrounding the area is intact. There is some serous drainage noted on the dressing. Left lateral/posterior shoulder - There is an superficial open area suspect secondary to a shearing injury. The area measures 2 cm x 2.5 cm x 0.1 cm. The wound base is pink. The surrounding skin is intact. There is no drainage. Left lateral side/flank - There are 2 areas of dark purple discoloration. The skin is intact. The upper area measures 7 cm x 7 cm and the smaller lower area measures 3 cm x 11.5 cm. Left lateral knee - There is a superficial open area, measuring 2.2 cm x 2 cm x 0.1 cm. The wound base is pink tissue. The surrounding skin is intact, there is no drainage. Left lateral lower leg - There is a superficial open area, measuring 7 cm x 2.5 cm x 0.1 cm. The wound base has purplish discoloration in the center and red in the outer. The surrounding skin is intact. There is a small amount of drainage on the dressing. Assessment/Plan: Ms. Soriano is an 82 yo female with PMH significant for HTN, CVA with left UE residual weakness, and S/P peg tube with tube feeding. Noted to be breathing faster by family and was brought to the emergency room for evaluation. She was found to have acute hypoxic and hypercarbic respiratory failure, severe sepsis with shock, bilateral pneumonia suspected to be secondary aspiration etiology, proteus bacteremia, Influenza B, metabolic encephalopathy, COLBY, hypernatremia, and anemia. She is currently intubated and sedated in the ICU. She presented to the hospital with multiple areas of skin breakdown and deep tissue injury from home. 1. Left wrist wound. Suspect this is a stage 2 pressure injury with associated deep tissue injury secondary to left arm contracture. Recommend leaving the area open to air and pressure relieving measures. 2. Multiple superficial open areas and deep tissue injury - Recommend Optifoam dressings to the open areas and change every 3 days. Frequent turning and repositioning. Discontinue Optifoam dressings on the intact skin. Consider checking a prealbumin to evaluate nutritional status. 3. History of CVA with left sided weakness. 4. Diet. Tube feeding 5. Code Status. Full code 6. Disposition. Inpatient, disposition per primary medicine team TIME SPENT. Time for this wound consultation was 45 minutes and 30 minutes was spent assessing, measuring and photographing the wounds. Wound Problem/Plan Is Patient a Wound Clinic Patient: No Attending: Emy Ribera
[2018-10-09] MEDS: Chlorhexidine MOUTHWASH 0.12%* 15 ML UDC TOPICAL SCH ×2 (19:50→21:40)
[2018-10-10] MEDS: Vasopressin* 100 UNITS in D5W 250 ML BAG* 245 ML IVPB SCH ×2 (00:23→15:14)
[2018-10-10] MEDS ORDERED: D5W 1/2 NS KCl 20 Meq 1000 ML* 1,000 ML IV SCH (02:00)
[2018-10-10] MEDS: Piperacillin/Tazobac ADVAN(*) 3.375 GM in NS 0.9% 100 ML* 100 ML IVPB SCH ×2 (02:41→13:05)
[2018-10-10] MEDS: Chlorhexidine MOUTHWASH 0.12%* 15 ML UDC TOPICAL SCH ×6 (02:41→21:49)
[2018-10-10] MEDS: Norepinephrine VIAL* 8 MG in NS 0.9% 500 ML* 492 ML IV SCH ×3 (04:17→17:00)
[2018-10-10] MEDS: Heparin VIAL(*) 5000 UNITS/ML VIAL (FIVE THOUSAND) SUBCUT SCH (05:51)
[2018-10-10 05:55] LABS: Hematocrit 26 % (33-41); Mean Corpuscular HGB Conc 31 g/dL (31-36); Mean Corpuscular Hemoglobin 26 pg (27-31); Mean Corpuscular Volume 85 fL (80-97); Mean Platelet Volume 10.3 fL (7.4-10.4); Platelet Count 119 10^3/uL (150-450); Red Blood Count 3.03 10^6 /uL (3.70-4.87); Red Cell Distribution Width 18 % (10.5-15); White Blood Count 9.3 10^3/uL (3.5-10.8)
[2018-10-10] MEDS ORDERED: Vancomycin Random Level* NOTE FOLLOW UP SCH (06:00)
[2018-10-10 06:01] LABS: INR 1.21 (0.77-1.02)
[2018-10-10 06:13] LABS: Albumin 1.7 g/dL (3.2-5.2); Albumin/Globulin Ratio 0.8 (1-3); BUN/Creatinine Ratio 32.8 (8-20); EGFR African American 24.4 (>60); EGFR Non-African American 20.2 (>60); Globulin 2.2 g/dL (2-4); Indirect Bilirubin 0.5 mg/dL (0.3-1.0); Magnesium 2.3 mg/dL (1.9-2.7); Potassium 3.5 mmol/L (3.5-5.0); Total Bilirubin 1.1 mg/dL (0.2-1.0); Total Protein 3.9 g/dL (6.4-8.9)
[2018-10-10] MEDS: Midazolam IV for DRIP* 100 MG in NS 0.9% 100 ML* 80 ML IV SCH ×3 (07:35→21:41)
[2018-10-10] MEDS: EPINEPHRINE IV SCH (07:38)
[2018-10-10] MEDS: NS 0.9% IV SCH (07:38)
[2018-10-10] MEDS: Propofol* 100 ML IV SCH (08:35)
[2018-10-10] MEDS: levETIRAcetam LIQ* 500 MG/5 ML UDC PO SCH ×2 (08:36→21:49)
[2018-10-10] MEDS: Oseltamivir SUSP* ORALSYR 6 MG/ML PO SCH (08:36)
[2018-10-10] MEDS: Famotidine IV* 10 MG/ML 2 ML (20 mg) IV SLOW PU SCH (08:37)
[2018-10-10] MEDS ORDERED: Vancomycin(*) 1,000 MG in NS 0.9% 250 ML* 250 ML IVPB ONE (10:00)
[2018-10-10] MEDS ORDERED: KCL 20 MEQ/100 ML IVPREMIX* 20 MEQ/100 ML BAG IV ONE (11:01)
--- NOTE | 2018-10-10 11:12 | PN ---
Progress Note - Progress Note Date of Service: 10/10/18 Note: Progress Note -- Critical Care 24 hour events -remains intubated -on levophed; off vaso and epi -on 60% fio2 -on versed and low dose propofol for sedation -tmax 99, now 96.3 -episodes of rapid afib yesterday; currently has remained NSR overnight Tele: NSR Vitals: Vital Signs Temp 96.3 F 10/10/18 10:45 Pulse 88 10/10/18 10:45 Resp 22 10/10/18 10:00 BP 95/50 10/09/18 20:45 Pulse Ox 100 10/10/18 10:45 Intake & Output 10/09/18 10/10/18 10/10/18 18:59 06:59 18:59 Intake Total 2521 2047.5 Output Total 415 903 215 Balance 2106 1144.5 -215 Weight 76.9 kg Intake: IV Fluids 135 757 D5W 1/2 NS 20 meq KCL 482 Normal Saline 135 125 Vancomycin 35 zosyn 115 IVPB 419 Vancomycin 265 cagluc 104 zosyn 50 Medicated IV 1967 1290.5 CC - Epinephrine 1001 259 CC - Norepinephrine/ 814 892 Levophed CC - Vasopressin/ 55 41 Pitressin Versed 54 32.5 propofol 43 66 Output: NG Tube Drainage Amount 325 Ziegler 415 378 215 Liquid Stool 200 O2/Vent: AC 28/500/+8/60% Infusions: levophed 12, versed 4mg/hr, propofol 10 Current Medications: Acetaminophen (Tylenol Adult Liq*) 650 mg PO Q4H PRN PRN Reason: fever >102 Albuterol (Ventolin 2.5 Mg/3 Ml Neb.Sharon*) 2.5 mg INH Q4H PRN PRN Reason: SOB/WHEEZING Chlorhexidine Gluconate (Peridex Mouth Wash 0.12%*) 15 ml TOPICAL Q4H ABDIRASHID Last Admin: 10/10/18 08:36 Dose: 15 ml Famotidine (Pepcid Iv*) 20 mg IV SLOW PU DAILY ABDIRASHID Last Admin: 10/10/18 08:37 Dose: 20 mg Fentanyl Citrate (Fentanyl*) 25 mcg IV SLOW PU Q1H PRN PRN Reason: PAIN Last Admin: 10/08/18 22:12 Dose: 25 mcg Heparin Sodium (Porcine) (Heparin Vial(*)) 5,000 units SUBCUT Q8HR [facility] Last Admin: 10/10/18 05:51 Dose: 5,000 units Piperacillin Sod/Tazobactam (Sod 3.375 gm/ Sodium Chloride) 100 mls @ 25 mls/ hr IVPB Q12H [facility] Last Admin: 10/10/18 02:41 Dose: 25 mls/hr Vasopressin 100 units/ (Dextrose) 250 mls @ 6 mls/hr IVPB Q24H [facility]; Protocol Last Admin: 10/10/18 00:23 Dose: 6 mls/hr Propofol (Diprivan*) 100 mls @ 4.681 mls/hr IV .(Initial Rate) [facility]; Protocol Last Admin: 10/10/18 08:35 Dose: 4.681 mls/hr Midazolam HCl 100 mg/ Sodium (Chloride) 100 mls @ 10 mls/hr IV Q10H [facility]; Protocol Last Admin: 10/10/18 07:35 Dose: Not Given Epinephrine HCl 4 mg/ Sodium (Chloride) 1,000 mls @ 60 mls/hr IV Q16H [facility]; Protocol Last Admin: 10/10/18 07:38 Dose: Not Given Potassium Chloride/Dextrose (D5w 1/2 Ns Kcl 20 Meq 1000 Ml*) 1,000 mls @ 100 mls/hr IV PER RATE [facility] Last Admin: 10/10/18 01:19 Dose: 100 mls/hr Norepinephrine Bitartrate 8 mg (/ Sodium Chloride) 500 mls @ 50 mls/hr IV Q10H [facility]; Protocol Last Admin: 10/10/18 04:17 Dose: 45 mls/hr Vancomycin HCl 1,000 mg/ (Sodium Chloride) 250 mls @ 166.667 mls/hr IVPB ONCE ONE Stop: 10/10/18 11:29 Last Admin: 10/10/18 10:28 Dose: 166.667 mls/hr Levetiracetam (Keppra Liq*) 500 mg PO Q12H [facility] Last Admin: 10/10/18 08:36 Dose: 500 mg Oseltamivir Phosphate (Tamiflu Susp* Oralsyr) 30 mg PO DAILY [facility] Stop: 10/13/18 15:59 Last Admin: 10/10/18 08:36 Dose: 30 mg Pharmacy Consult (Vancomycin Per Pharmacy*) 1 note FOLLOW UP .VANC PER PHARMACY [facility] Pharmacy Consult (Vancomycin Random Level*) 1 note FOLLOW UP 0600 [facility] Last Admin: 10/10/18 05:47 Dose: 1 note Pharmacy Consult (Vancomycin Random Level*) 1 note FOLLOW UP ONCE ONE Stop: 10/11/18 06:01 Physical Exam: Constitutional: intubated, sedated, no distress, no diaphoresis Head: normocephalic, atraumatic Eyes: no pallor, no icterus ENT: DRY+ mucous membranes Neck: soft, supple, no jvd CVS: regular, normal rate, no murmur Resp: bilateral air entry, no RRW, no acc muscle use Abdomen/GI: soft, nontender, nondistended; PEG+ Ext/Msk: warm, pulses+, +edema Skin: multiple DTI on left and midline in back; areas of multiple Stage II pressure wounds on left back and left medial portion of lower leg Neuro: sedated, intubated, pupils bilaterally reactive, cough+; limited neuro exam Labs: Laboratory Results - last 24 hr 10/08/18 10/09/18 10/10/18 12:35 17:28 05:37 WBC RBC Hgb Hct MCV MCH MCHC RDW Plt Count MPV INR (Anticoag Therapy) Patient Temperature 37.3 ABG pH 7.35 ABG pH (Temp Correct) Not Reportable ABG pCO2 27 L ABG pCO2 (Temp Corrct Not Reportable ABG pO2 173 H ABG pO2 (Temp Correct Not Reportable ABG HCO3 17.8 L ABG O2 Saturation 100.0 H ABG Base Excess -9.1 L Respiration Rate 28 O2 Delivery Device Ventilator Type Not Reportable Vent Mode Apvcmv FiO2 80 Inspiratory Time Not Reportable PEEP 8 Pressure Support Not Reportable Pressure Control Not Reportable EPAP Not Reportable IPAP Not Reportable BiPAP Not Reportable Sodium 167 H* 148 H Potassium 3.8 3.5 Chloride 137 H 124 H Carbon Dioxide 22 15 L Anion Gap 8 9 BUN 85 H 76 H Creatinine 2.62 H 2.32 H Est GFR ( Amer) 21.2 24.4 Est GFR (Non-Af Amer) 17.6 20.2 BUN/Creatinine Ratio 32.4 H 32.8 H Glucose 139 H 127 H Lactic Acid Calcium 6.6 L 7.0 L Phosphorus 4.0 Magnesium 2.3 Total Bilirubin 0.70 1.10 H Direct Bilirubin 0.60 H Indirect Bilirubin 0.5 AST 81 H 35 ALT 48 35 Alkaline Phosphatase 78 70 Troponin I 0.16 H* C-Reactive Protein 18.19 H Total Protein 4.7 L 3.9 L Albumin 2.2 L 1.7 L Globulin 2.5 2.2 Albumin/Globulin Ratio 0.9 L 0.8 L Random Vancomycin 18.0 10/10/18 10/10/18 10/10/18 05:37 05:37 05:37 WBC 9.3 RBC 3.03 L Hgb 8.0 L Hct 26 L MCV 85 MCH 26 L MCHC 31 RDW 18 H Plt Count 119 L MPV 10.3 INR (Anticoag Therapy) 1.21 H Patient Temperature ABG pH ABG pH (Temp Correct) ABG pCO2 ABG pCO2 (Temp Corrct ABG pO2 ABG pO2 (Temp Correct ABG HCO3 ABG O2 Saturation ABG Base Excess Respiration Rate O2 Delivery Device Ventilator Type Vent Mode FiO2 Inspiratory Time PEEP Pressure Support Pressure Control EPAP IPAP BiPAP Sodium Potassium Chloride Carbon Dioxide Anion Gap BUN Creatinine Est GFR ( Amer) Est GFR (Non-Af Amer) BUN/Creatinine Ratio Glucose Lactic Acid 2.6 H* Calcium Phosphorus Magnesium Total Bilirubin Direct Bilirubin Indirect Bilirubin AST ALT Alkaline Phosphatase Troponin I C-Reactive Protein Total Protein Albumin Globulin Albumin/Globulin Ratio Random Vancomycin 10/10/18 05:37 WBC RBC Hgb Hct MCV MCH MCHC RDW Plt Count MPV INR (Anticoag Therapy) Patient Temperature 36.3 ABG pH 7.38 ABG pH (Temp Correct) Not Reportable ABG pCO2 23 L ABG pCO2 (Temp Corrct Not Reportable ABG pO2 160 H ABG pO2 (Temp Correct Not Reportable ABG HCO3 17.5 L ABG O2 Saturation 100.0 H ABG Base Excess -9.5 L Respiration Rate 28 O2 Delivery Device mechanical vent Ventilator Type 500 Vent Mode apv/cmv FiO2 60 Inspiratory Time Not Reportable PEEP 8 Pressure Support Not Reportable Pressure Control Not Reportable EPAP Not Reportable IPAP Not Reportable BiPAP Not Reportable Sodium Potassium Chloride Carbon Dioxide Anion Gap BUN Creatinine Est GFR ( Amer) Est GFR (Non-Af Amer) BUN/Creatinine Ratio Glucose Lactic Acid Calcium Phosphorus Magnesium Total Bilirubin Direct Bilirubin Indirect Bilirubin AST ALT Alkaline Phosphatase Troponin I C-Reactive Protein Total Protein Albumin Globulin Albumin/Globulin Ratio Random Vancomycin Imaging: CXR 10/08 - ett above rubens, left effusion/atelectasis 10/08 CT brain pending officail read - no clear large acute pathology; previous Right sided area of hemorrhage with encephalomalacia+ 10/08 CT chest with small left basal atelectasis or small infiltrate; no sig effusion 10/08 CT abd/pelvis pending 10/09 cxr - bilateral infiltrates+, left>right TTE 10/08 - LVEF 60%, no diastolic dysfxn, no valvular abn, no effusion Assessment: 2y F w/pmhx of HTN, 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 According to the Son, she has been okay at home, no recent illness or change. Today he noted she was breathing faster and he belly was not normal. He called EMS for respiratory distress. He desnies any vomiting/fevers. Weakness+. On ER arrival patient was hypotensive 60s, tachycardic 90-100s, in respiratory distress, febrile 104.8, sats 92% on arrival , placed on NRM already. She initially arrived with DNR/DNI status ordered from previous records as per ER. She was started on sepsis protocol with >2L NS bolus, then additional 2-3L NS bolus, eventual levophed infusion for BP support. Given IV zosyn/vancomycin for abx. She has a ziegler, made urine, has loose stool/diarrhea. Tachpneic on my arrival on NRM. I discussed with family and the Son (Darrick) is HCP and wants all measures, no DNR/DNI. Patients [place] [facility] [place] and [place] now. All was discussed with Son including rescucitation, sepsis, prolonged ventilation and difficulty to wean given her overall neurological status from prior stroke, but we continued with intubation as per family wishes. 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 Plan: Neuro- -currently sedated on versed and low dose propofol -plan for sedation weaning today -likely was metabolic encephalopathy given Sepsis underlying/hypernatremia/COLBY -10/08 CT brain negative for acute pathology, noted chronic changes -neurochecks as per ICU policy -cont keppra for seizure proph 2/2 to previous ICH; Keppra 500mg liquid BID renal dosing -Delirium prec CVS- -septic shock; 2/2 to influenza B + aspiration pneumoina + Gram neg bacteremia -d5 / NS at 75cc/hr -cont levophed -Titrate Pressors to Maintain MAP>65, and SBP>90 -making urine now 70cc/hr -IV abx -suspect nstemi from demand ischemia Resp- -intubated; AC 28/500/+8/60% -Dec RR to 22, dec fio2 -ABG at 2pm -CXR tomorrow -CXR 10/09 - bilateral infiltrates+, L>R -10/08 CXR/CT chest wtih left basal atelectasis and small infiltrate only -IV abx and antivirals -Wean Fio2 to keep sat>92% -Bronchodilators PRN, Aspiration prec, Pulmonary Toilet ID- tmax 100.2, temps 96, wbc 13-9 -CT chest/CXr 10/08 small basal infiltrates+, Left>right -cxr 10/09 - bilateral infiltrates -CT abd/pelvis 10/08 - fluid in colon+ -Influenza B+ swab -blood cx Proteus+ and aerococcus+ -repeat blood cultures today to followup clearance -Zosyn (day#3), Vanco (day#3), can probably d/c vanco tody -Tamiflu 30mg via Peg Daily (day#3) (renal dosing) GI- -NPO -OGT+ to suction; has bilious output noted still -PEG+; hold feeds -?aspiration event first day on arrival to ER -loose stool++; fecal containment system -GI prophylaxis - h2b Renal- -COLBY; elevated BUN, clinically dry with Hypernatremia; liekly pre-renal azotemia from volume depletion, poor po intake and septic shock/bacteremia -Cr has plateued and decreasing; urine output improving now to 70cc/hr -replete K 20meq x1; K 20meq in d5w bag also -Mg okay -check BMP later today; has persistent metabolic aicodiss, but LA improved, likely from renal insuff -cotn d5 1/2 NS 20meq KCL at 65cc/hr -strict I/O, replete to keep K>4, Mg>2 -ziegler as indicated Heme- anemia; 8 range -check h/h later today, send type and screen -d/c heparin sq for now till confirmed no bleeding -DVT proph with SCD and heparin sq Endo- Maintain BG<200, insulin protocol as needed -BG now better; off epi which may have been causing it Musculsk- pressure ulcer prophylaxis. Bedrest. Wounds- multiple DTIs on left posterior and open Stage II wounds; wound care done. Nutrition- NPO DVT prophylaxis: SCD/ hold heparin sq GI prophylaxis: h2b Central Line: RIJ 10/08 Arterial Line: Right rad 10/08 Ziegler Cathetor: yes Fecal containment system+ Disposition: Patient requires Critical Care/ICU for Resp failure req intubation , septic shock on pressors, COLBY Patient Clinical Status: critical, guarded Code Status: FULL CODE Total Critical Care time is 60 minutes, excluding procedures/teaching Shane Steward MD Lumite Injector (Electronically Signed)
[2018-10-10] MEDS: D5W 1/2 NS KCl 20 Meq 1000 ML* 1,000 ML IV SCH (11:24)
[2018-10-10 16:50] LABS: Hematocrit 25 % (33-41); Hemoglobin 7.8 g/dL (12.0-16.0)
[2018-10-10 17:56] LABS: BUN/Creatinine Ratio 32.8 (8-20); Calcium 7.2 mg/dL (8.6-10.3); EGFR African American 28.4 (>60); EGFR Non-African American 23.4 (>60); Potassium 3.7 mmol/L (3.5-5.0)
[2018-10-11] MEDS: EPINEPHRINE IV SCH ×2 (01:08→15:57)
[2018-10-11] MEDS: NS 0.9% IV SCH ×2 (01:08→15:57)
[2018-10-11] MEDS: D5W 1/2 NS KCl 20 Meq 1000 ML* 1,000 ML IV SCH (01:30)
[2018-10-11] MEDS: Propofol* 100 ML IV SCH ×2 (01:32→16:29)
[2018-10-11] MEDS: Norepinephrine VIAL* 8 MG in NS 0.9% 500 ML* 492 ML IV SCH ×2 (01:56→09:16)
[2018-10-11] MEDS: Midazolam IV for DRIP* 100 MG in NS 0.9% 100 ML* 80 ML IV SCH ×3 (02:59→21:50)
[2018-10-11] MEDS: Chlorhexidine MOUTHWASH 0.12%* 15 ML UDC TOPICAL SCH ×6 (02:59→21:50)
[2018-10-11] MEDS: Piperacillin/Tazobac ADVAN(*) 3.375 GM in NS 0.9% 100 ML* 100 ML IVPB SCH ×2 (02:59→15:57)
[2018-10-11] MEDS ORDERED: Vancomycin Random Level* NOTE FOLLOW UP ONE (06:00)
[2018-10-11 06:44] LABS: Hematocrit 26 % (33-41); Hemoglobin 7.9 g/dL (12.0-16.0); Mean Corpuscular HGB Conc 31 g/dL (31-36); Mean Corpuscular Hemoglobin 26 pg (27-31); Mean Corpuscular Volume 85 fL (80-97); Mean Platelet Volume 10.1 fL (7.4-10.4); Platelet Count 115 10^3/uL (150-450); Red Cell Distribution Width 18 % (10.5-15); White Blood Count 9.1 10^3/uL (3.5-10.8)
[2018-10-11 06:51] LABS: INR 1.02 (0.77-1.02)
[2018-10-11 07:01] LABS: Albumin 1.7 g/dL (3.2-5.2); Albumin/Globulin Ratio 0.7 (1-3); BUN/Creatinine Ratio 30.2 (8-20); Calcium 7.5 mg/dL (8.6-10.3); EGFR African American 30.4 (>60); EGFR Non-African American 25.1 (>60); Globulin 2.4 g/dL (2-4); Indirect Bilirubin 0.3 mg/dL (0.3-1.0); Magnesium 2.3 mg/dL (1.9-2.7); Phosphorus 3.4 mg/dL (2.5-5.0); Potassium 3.7 mmol/L (3.5-5.0); Total Bilirubin 0.8 mg/dL (0.2-1.0); Total Protein 4.1 g/dL (6.4-8.9)
[2018-10-11] MEDS: Famotidine IV* 10 MG/ML 2 ML (20 mg) IV SLOW PU SCH (08:23)
[2018-10-11] MEDS: Oseltamivir SUSP* ORALSYR 6 MG/ML PO SCH (08:28)
[2018-10-11] MEDS: levETIRAcetam LIQ* 500 MG/5 ML UDC PO SCH ×2 (08:28→21:15)
[2018-10-11] MEDS: fentaNYL* 50 MCG/ML 2 ML VIAL (100 MCG VIAL) IV SLOW PU PRN (10:25)
[2018-10-11] MEDS: Vasopressin* 100 UNITS in D5W 250 ML BAG* 245 ML IVPB SCH (15:52)
--- NOTE | 2018-10-11 17:20 | PN ---
Date of Service: 10/11/18 - [facility] note Critical Care Services: Pt seen and examined at bedside. Overnight events Plan of care discussed with ICU team MEds, labs,vitals reviewed 10/08 - admitted for resp failure, septic shock 10/09 - stable, decreasing pressors slowly 10/10- On low dose Levo Remians on sedation with Versed and Propofol Had air leak through ETT, was replaced Vital Signs: Temp Pulse Resp BP SpO2 FiO2 97.7 F 69 24 95/50 99 50 10/11/18 15:01 10/11/18 15:01 10/11/18 15:00 10/09/18 20:45 10/11/18 15:01 10/11 12:00 Physical Exam: Gen: Pt is sedated HEENT: ETT+ Lungs: Wheeze+, decreased at bases Cardiac: S1, S2+ Abdomen: BS+, NT Extremities: Moves to painful stimuli Neuro: Sedated, unable to assess Fluid Balance (Past 24 Hours): I= 3620 Z=0383 Net 1435 Intake & Output 10/09/18 10/10/18 10/11/18 10/12/18 06:59 06:59 06:59 06:59 Intake Total 9448.3 4568.5 3620 677.5 Output Total 1342 1318 2185 800 Balance 8106.3 3250.5 1435 -122.5 Weight 171 lb 4.787 oz 169 lb 8.568 oz 183 lb 10.321 oz Intake: IV Fluids 4845 892 2258 609 D5%bicarb 252 D5W 1/2 NS 20 meq KCL 482 1919 574 KCL 317 100 Lactated Ringers 485 Normal Saline 85 260 49 35 Vancomycin 35 bicarb 50 cagluc 120 zosyn 186 115 190 IVPB 419 393 10 KCL 86 Vancomycin 265 265 cagluc 104 zosyn 50 42 10 Medicated IV 4533.3 3257.5 969 58.5 CC - Epinephrine 2398 1260 CC - Norepinephrine/ 1582 1706 853 Levophed CC - Vasopressin/ 515.3 96 Pitressin Versed 86.5 propofol 38 109 116 58.5 NG Tube Irrigate Amount 70 Output: NG Tube Drainage Amount 200 325 250 Ziegler 831 136 4988 800 Liquid Stool 400 200 Labs: Laboratory Results - last 24 hr 10/08/18 10/10/18 10/10/18 16:50 16:27 16:27 WBC RBC Hgb Hct MCV MCH MCHC RDW Plt Count MPV INR (Anticoag Therapy) Sodium 152 H Potassium 3.7 Chloride 128 H Carbon Dioxide 16 L Anion Gap 8 BUN 67 H Creatinine 2.04 H Est GFR ( Amer) 28.4 Est GFR (Non-Af Amer) 23.4 BUN/Creatinine Ratio 32.8 H Glucose 103 H Lactic Acid Calcium 7.2 L Phosphorus Magnesium Total Bilirubin Direct Bilirubin Indirect Bilirubin AST ALT Alkaline Phosphatase Total Protein Albumin Globulin Albumin/Globulin Ratio Procalcitonin 0.90 H Random Vancomycin Antibody Screen Negative 10/11/18 10/11/18 10/11/18 06:30 06:30 06:30 WBC 9.1 RBC 3.00 L Hgb 7.9 L Hct 26 L MCV 85 MCH 26 L MCHC 31 RDW 18 H Plt Count 115 L MPV 10.1 INR (Anticoag Therapy) 1.02 Sodium 153 H Potassium 3.7 Chloride 130 H Carbon Dioxide 16 L Anion Gap 7 BUN 58 H Creatinine 1.92 H Est GFR ( Amer) 30.4 Est GFR (Non-Af Amer) 25.1 BUN/Creatinine Ratio 30.2 H Glucose 104 H Lactic Acid Calcium 7.5 L Phosphorus 3.4 Magnesium 2.3 Total Bilirubin 0.80 Direct Bilirubin 0.50 H Indirect Bilirubin 0.3 AST 22 ALT 24 Alkaline Phosphatase 71 Total Protein 4.1 L Albumin 1.7 L Globulin 2.4 Albumin/Globulin Ratio 0.7 L Procalcitonin Random Vancomycin Antibody Screen 10/11/18 10/11/18 06:30 10:00 WBC RBC Hgb Hct MCV MCH MCHC RDW Plt Count MPV INR (Anticoag Therapy) Sodium Potassium Chloride Carbon Dioxide Anion Gap BUN Creatinine Est GFR ( Amer) Est GFR (Non-Af Amer) BUN/Creatinine Ratio Glucose Lactic Acid 2.0 Calcium Phosphorus Magnesium Total Bilirubin Direct Bilirubin Indirect Bilirubin AST ALT Alkaline Phosphatase Total Protein Albumin Globulin Albumin/Globulin Ratio Procalcitonin Random Vancomycin 19.9 Antibody Screen Studies: CXR 10/08 - ett above rubens, left effusion/atelectasis 10/08 CT brain pending officail read - no clear large acute pathology; previous Right sided area of hemorrhage with encephalomalacia+ 10/08 CT chest with small left basal atelectasis or small infiltrate; no sig effusion 10/08 CT abd/pelvis pending 10/09 cxr - bilateral infiltrates+, left>right TTE 10/08 - LVEF 60%, no diastolic dysfxn, no valvular abn, no effusion CXR10/11- ETT ~ 2cm above rubens, OGT in place, central line in place, air space opacities unchanged Nutrition: Tube feeds Impression: 82 F w/pmhx of HTN, CVA 2/2 to Right ICH s/p craniotomy 09/2016, residual Left UE weakness s/p PEG; was taken out of [facility] last November 2017 and has been home since. EMS called for respiratory distress. On ER arrival patient was hypotensive 60s , tachycardic 90-100s, in respiratory distress, febrile 104.8, sats 92% on arrival, placed on NRM already. She initially arrived with DNR/DNI status ordered from previous records as per ER. She was started on sepsis protocol fluid resuscitated, required pressors for BP support. On broad spectrum abx. 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 Plan: Neuro- -currently sedated on versed and low dose propofol -sedation vacation as tolerated -likely was metabolic encephalopathy given Sepsis underlying/hypernatremia/COLBY -10/08 CT brain negative for acute pathology, noted chronic changes -neurochecks as per ICU policy -cont keppra for seizure proph 2/2 to previous ICH; Keppra 500mg liquid BID renal dosing -Delirium prec CVS- -septic shock; 2/2 to influenza B + aspiration pneumoina + Gram neg bacteremia -Titrate levophed to Maintain MAP>65, and SBP>90 -IV abx -suspect nstemi from demand ischemia Resp- -intubated; AC 22/500/+8/50% -CXR reviewed- left basal atelectasis and small infiltrates -IV abx and antivirals -Wean Fio2 to keep sat>92% -Bronchodilators PRN, Aspiration prec, Pulmonary Toilet ID- Low grade temps -CT chest/CXr 10/08 small basal infiltrates+, Left>right -cxr 4/10 - bilateral infiltrates -CT abd/pelvis / - fluid in colon+ -Influenza B+ swab -blood cx Proteus+ and aerococcus+ -repeat blood cultures negative -Zosyn (day#4), Vanc d/c -Tamiflu 30mg via Peg Daily (day#4) (renal dosing) GI- -NPO -OGT+ to suction; has bilious output noted still -PEG+; hold feeds -?aspiration event first day on arrival to ER -loose stool++; fecal containment system -GI prophylaxis - h2b Renal- -COLBY; elevated BUN, clinically dry with Hypernatremia; likely pre-renal azotemia from volume depletion, poor po intake and septic shock/bacteremia -Cr has plateued and decreasing; monitor urine output -cReplete electrolytes as neede -strict I/O, replete to keep K>4, Mg>2 -ziegler as indicated Heme- anemia; 8 range -check h/h later today, send type and screen -d/c heparin sq for now till confirmed no bleeding -DVT proph with SCD and heparin sq Endo- Maintain BG<200, insulin protocol as needed -BG now better; off epi which may have been causing it Musculsk- pressure ulcer prophylaxis. Bedrest. Wounds- multiple DTIs on left posterior and open Stage II wounds; wound care done. Nutrition- NPO DVT prophylaxis: SCD/ hold heparin sq GI prophylaxis: h2b Central Line: RIJ 10/08 Arterial Line: Right rad 10/08 Ziegler Cathetor: yes Fecal containment system+ Disposition: Patient requires Critical Care/ICU for Resp failure req intubation , septic shock on pressors, COLBY Patient Clinical Status: critical, guarded Code Status: FULL CODE D/w pts son today, updated on plan of care Total Critical Care time is 40 minutes
[2018-10-12] MEDS: Chlorhexidine MOUTHWASH 0.12%* 15 ML UDC TOPICAL SCH ×6 (02:42→22:10)
[2018-10-12] MEDS: Piperacillin/Tazobac ADVAN(*) 3.375 GM in NS 0.9% 100 ML* 100 ML IVPB SCH ×3 (02:42→22:10)
[2018-10-12] MEDS: Norepinephrine VIAL* 8 MG in NS 0.9% 500 ML* 492 ML IV SCH ×4 (04:03→20:37)
[2018-10-12 06:11] LABS: Hematocrit 26 % (33-41); Mean Corpuscular HGB Conc 30 g/dL (31-36); Mean Corpuscular Hemoglobin 26 pg (27-31); Mean Corpuscular Volume 87 fL (80-97); Mean Platelet Volume 10.1 fL (7.4-10.4); Platelet Count 120 10^3/uL (150-450); Red Blood Count 3.04 10^6 /uL (3.70-4.87); Red Cell Distribution Width 18 % (10.5-15); White Blood Count 7.7 10^3/uL (3.5-10.8)
[2018-10-12 06:35] LABS: BUN/Creatinine Ratio 26.5 (8-20); Calcium 7.7 mg/dL (8.6-10.3); EGFR Non-African American 25.6 (>60); Magnesium 2.2 mg/dL (1.9-2.7); Phosphorus 3.6 mg/dL (2.5-5.0); Potassium 3.6 mmol/L (3.5-5.0)
[2018-10-12] MEDS: Famotidine IV* 10 MG/ML 2 ML (20 mg) IV SLOW PU SCH (08:28)
[2018-10-12] MEDS: NS 0.9% IV SCH (08:30)
[2018-10-12] MEDS: EPINEPHRINE IV SCH (08:30)
[2018-10-12] MEDS: Oseltamivir SUSP* ORALSYR 6 MG/ML PO SCH (09:00)
[2018-10-12] MEDS: levETIRAcetam LIQ* 500 MG/5 ML UDC PO SCH ×2 (09:00→20:54)
[2018-10-12] MEDS ORDERED: Albumin Human 25%* 12.5 GM/50 ML BTL IV ONE (11:30)
--- NOTE | 2018-10-12 11:45 | PN ---
Progress Note - Progress Note Date of Service: 10/12/18 - [facility] note Note: Pt seen and examined at bedside. No acute events noted Overnight events Plan of care discussed with ICU team Meds, labs,vitals reviewed 10/08 - admitted for resp failure, septic shock from home 10/09 - stable, decreasing pressors slowly 10/10- On low dose Levo 10/11- ETT changed due to leak Active Medications Generic Name Dose Route Start Last Admin Trade Name Freq PRN Reason Stop Dose Admin Acetaminophen 650 mg 10/08/18 12:17 Tylenol Adult Liq* PO Q4H PRN fever >102 Albuterol 2.5 mg 10/09/18 16:37 Ventolin 2.5 Mg/3 Ml Neb.Sharon* INH Q4H PRN SOB/WHEEZING Chlorhexidine Gluconate 15 ml 10/09/18 18:00 10/12/18 08:28 Peridex Mouth Wash 0.12%* TOPICAL 15 ml Q4H ABDIRASHID Administration Famotidine 20 mg 10/10/18 09:00 10/12/18 08:28 Pepcid Iv* IV SLOW PU 20 mg DAILY ABDIRASHID Administration Fentanyl Citrate 25 mcg 10/08/18 15:10 10/11/18 10:25 Fentanyl* IV SLOW PU 25 mcg Q1H PRN Administration PAIN Piperacillin Sod/Tazobactam 100 mls @ 25 mls/hr 10/08/18 14:00 10/12/18 02:42 Sod 3.375 gm/ Sodium Chloride IVPB 25 mls/hr Q12H ABDIRASHID Administration Vasopressin 100 units/ 250 mls @ 6 mls/hr 10/08/18 15:15 10/11/18 15:52 Dextrose IVPB Not Given Q24H ABDIRASHID Protocol 0.04 UNITS/MIN Propofol 100 mls @ 4.681 mls/hr 10/08/18 20:00 10/11/18 16:29 Diprivan* IV 4.681 mls/hr .(Initial Rate) ABDIRASHID Administration Protocol 10 MCG/KG/MIN Midazolam HCl 100 mg/ Sodium 100 mls @ 10 mls/hr 10/09/18 01:00 10/11/18 21: 50 Chloride IV 10 mls/hr Q10H ABDIRASHID Administration Protocol 10 MG/HR Epinephrine HCl 4 mg/ Sodium 1,000 mls @ 60 mls/hr 10/09/18 16:30 10/11/18 15 :57 Chloride IV Not Given Q16H ABDIRASHID Protocol 4 MCG/MIN Norepinephrine Bitartrate 8 mg 500 mls @ 50 mls/hr 10/10/18 03:03 10/12/18 04 :03 / Sodium Chloride IV 50 mls/hr Q10H ABDIRASHID Administration Protocol Dextrose/Sodium Chloride 1,000 mls @ 50 mls/hr 10/12/18 12:00 D5w 1/2 Ns 1000 Ml Bag* IV PER RATE ABDIRASHID Albumin Human 12.5 gm in 50 mls @ 4 mls/hr 10/12/18 11:30 Albumin Human 25%* IV 10/12/18 23:59 ONCE ONE 1 GM/HR Levetiracetam 500 mg 10/08/18 21:00 10/11/18 21:15 Keppra Liq* PO 500 mg Q12H ABDIRASHID Administration Oseltamivir Phosphate 30 mg 10/08/18 16:00 10/11/18 08:28 Tamiflu Susp* Oralsyr PO 10/13/18 15:59 30 mg DAILY ABDIRASHID Administration Vital Signs Temp Pulse Resp BP Pulse Ox 98.4 F 78 22 95/50 97 10/12/18 10:00 10/12/18 10:00 10/12/18 10:00 10/09/18 20:45 10/12/18 10:00 O/E: Pt in NAD HEENT: ETT in place Lungs: Diminished at bases CVS: S1, S2+, regular Abd: Soft, BS+, PEG+ Ext: Trace edema Neuro: Sedated,, unable to perform full neuro exam Skin: No rash Laboratory Results - last 24 hr 10/12/18 10/12/18 10/12/18 06:00 06:00 06:30 WBC 7.7 RBC 3.04 L Hgb 8.0 L Hct 26 L MCV 87 MCH 26 L MCHC 30 L RDW 18 H Plt Count 120 L MPV 10.1 INR (Anticoag Therapy) 1.00 Sodium 156 H* Potassium 3.6 Chloride 133 H Carbon Dioxide 16 L Anion Gap 7 BUN 50 H Creatinine 1.89 H Est GFR ( Amer) 31.0 Est GFR (Non-Af Amer) 25.6 BUN/Creatinine Ratio 26.5 H Glucose 81 Calcium 7.7 L Phosphorus 3.6 Magnesium 2.2 Imagin/9 - admitted for resp failure, septic shock 10/09 - stable, decreasing pressors slowly 10/10- On low dose Levo Remians on sedation with Versed and Propofol Had air leak through ETT, was replaced CXR 10/08 - ett above rubens, left effusion/atelectasis 10/08 CT brain pending officail read - no clear large acute pathology; previous Right sided area of hemorrhage with encephalomalacia+ 10/08 CT chest with small left basal atelectasis or small infiltrate; no sig effusion 10/08 CT abd/pelvis pending 10/09 cxr - bilateral infiltrates+, left>right TTE 10/08 - LVEF 60%, no diastolic dysfxn, no valvular abn, no effusion CXR10/11- ETT ~ 2cm above rubens, OGT in place, central line in place, air space opacities unchanged I/R: 82 F w/pmhx of HTN, 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 EMS called for respiratory distress, on ER arrival patient was hypotensive 60s , tachycardic 90-100s, in respiratory distress, febrile 104.8, sats 92% on arrival, placed on NRM already. She initially arrived with DNR/DNI status ordered from previous records as per ER. Her son requested her to be full code. She was started on sepsis protocol fluid resuscitated, required pressors for BP support. On broad spectrum abx. 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 Plan: Neuro- -currently sedated on versed and low dose propofol -sedation vacation as tolerated -likely was metabolic encephalopathy given Sepsis underlying/hypernatremia/COLBY -10/08 CT brain negative for acute pathology, noted chronic changes -neurochecks as per ICU policy -cont keppra for seizure proph 2/2 to previous ICH; Keppra 500mg liquid BID renal dosing -Delirium prec CVS- -septic shock; 2/2 to influenza B + aspiration pneumoina + Gram neg bacteremia -Titrate levophed to Maintain MAP>65, and SBP>90 -IV abx -suspect nstemi from demand ischemia Resp- -intubated; AC 22/500/+8/45% -CXR reviewed- left basal atelectasis and small infiltrates -Wean Fio2 to keep sat>92% -Bronchodilators PRN, Aspiration prec, Pulmonary Toilet - Not ready for weaning, plan for trach next week ID- Low grade temps -CT chest/CXr / small basal infiltrates+, Left>right -cxr / - bilateral infiltrates -CT abd/pelvis 10/08 - fluid in colon+ -Influenza B+ swab -blood cx Proteus+ and aerococcus+ -repeat blood cultures negative -Zosyn (day#5), Vanc d/c -Tamiflu 30mg via Peg Daily (day#5) (renal dosing) GI- -Was NPO due to N/V on admission and billous output -OGT+ to suction; less bilious output noted -Will start PEG feeds at llow rate along with free water and check for residuals -loose stool++; fecal containment system -GI prophylaxis - h2b Renal- -COLBY; elevated BUN, clinically dry with Hypernatremia which is worsening; likely pre-renal azotemia from volume depletion, poor po intake and septic shock /bacteremia -Cr has plateued and decreasing; good urine output -Replete electrolytes as needed - Will start D51/2NS for hypernatremia -strict I/O, replete to keep K>4, Mg>2 -ziegler as indicated Heme- anemia; stable -started heparin sq as no bleeding noted -DVT proph with SCD and heparin sq Endo- Maintain BG<200, insulin protocol as needed -BG stable Musculsk- pressure ulcer prophylaxis. Bedrest. 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
[2018-10-12] MEDS ORDERED: D5W 1/2 NS 1000 ML BAG* 1,000 ML IV SCH (12:00)
[2018-10-12 12:40] LABS: Hematocrit 26 % (33-41); Mean Corpuscular HGB Conc 30 g/dL (31-36); Mean Corpuscular Hemoglobin 27 pg (27-31); Mean Corpuscular Volume 87 fL (80-97); Mean Platelet Volume 9.5 fL (7.4-10.4); Platelet Count 116 10^3/uL (150-450); Red Cell Distribution Width 19 % (10.5-15); White Blood Count 7.6 10^3/uL (3.5-10.8)
[2018-10-12 12:48] LABS: ABS Basophils 0 10^3/ul (0-0.2); ABS Eosinophils 0.1 10^3/ul (0-0.6); ABS Lymphocytes 0.7 10^3/ul (1.0-4.8); ABS Monocytes 0.3 10^3/ul (0-0.8); ABS Neutrophils 6.4 10^3/ul (1.5-7.7); ABS Nucleated RBC 0 10^3/ul; Lymphocyte % 9.7 %; Nucleated Red Blood Cells % 0
[2018-10-12 12:53] LABS: INR 0.98 (0.77-1.02)
[2018-10-12 12:56] LABS: EGFR African American 31.7 (>60); EGFR Non-African American 26.2 (>60)
[2018-10-12] MEDS: Vasopressin* 100 UNITS in D5W 250 ML BAG* 245 ML IVPB SCH (17:45)
[2018-10-12] MEDS: Heparin VIAL(*) 5000 UNITS/ML VIAL (FIVE THOUSAND) SUBCUT SCH (20:54)
[2018-10-12] MEDS: Midazolam IV for DRIP* 100 MG in NS 0.9% 100 ML* 80 ML IV SCH ×2 (23:02→23:26)
[2018-10-13] MEDS: Propofol* 100 ML IV SCH (00:34)
[2018-10-13] MEDS: Chlorhexidine MOUTHWASH 0.12%* 15 ML UDC TOPICAL SCH ×6 (02:09→21:55)
[2018-10-13] MEDS: Piperacillin/Tazobac ADVAN(*) 3.375 GM in NS 0.9% 100 ML* 100 ML IVPB SCH ×3 (06:45→21:38)
[2018-10-13 07:01] LABS: INR 1.02 (0.77-1.02)
[2018-10-13 07:03] LABS: Hematocrit 25 % (33-41); Hemoglobin 7.6 g/dL (12.0-16.0); Mean Corpuscular HGB Conc 31 g/dL (31-36); Mean Corpuscular Hemoglobin 26 pg (27-31); Mean Corpuscular Volume 86 fL (80-97); Mean Platelet Volume 9.9 fL (7.4-10.4); Platelet Count 118 10^3/uL (150-450); Red Blood Count 2.88 10^6 /uL (3.70-4.87); Red Cell Distribution Width 19 % (10.5-15); White Blood Count 6.2 10^3/uL (3.5-10.8)
[2018-10-13 07:06] LABS: BUN/Creatinine Ratio 23.9 (8-20); Calcium 7.6 mg/dL (8.6-10.3); EGFR African American 33.6 (>60); EGFR Non-African American 27.8 (>60); Phosphorus 3.5 mg/dL (2.5-5.0); Potassium 3.3 mmol/L (3.5-5.0)
[2018-10-13] MEDS: Oseltamivir SUSP* ORALSYR 6 MG/ML PO SCH (08:17)
[2018-10-13] MEDS: levETIRAcetam LIQ* 500 MG/5 ML UDC PO SCH ×2 (08:17→20:41)
[2018-10-13] MEDS: Heparin VIAL(*) 5000 UNITS/ML VIAL (FIVE THOUSAND) SUBCUT SCH ×2 (08:17→20:41)
[2018-10-13] MEDS: Famotidine IV* 10 MG/ML 2 ML (20 mg) IV SLOW PU SCH (08:17)
--- NOTE | 2018-10-13 09:45 | PN ---
Date of Service: 10/13/18 - [facility] note Critical Care Services: Date of ICU admission: 10/08/18 Reason for ICU admission: Septic shock from possible aspiration PNA Date of intubation: 10/08/18 Pt seen and examined at bedside. Overnight events noted. Plan of care discussed with ICU team. Meds, labs,vitals reviewed Pt remains hypothermic, external warming initiated Afebrile, Hypernatremia persists. Thick secretions through ETT UO good, tolerating tube feeds Active Medications Generic Name Dose Route Start Last Admin Trade Name Freq PRN Reason Stop Dose Admin Acetaminophen 650 mg 10/08/18 12:17 Tylenol Adult Liq* PO Q4H PRN fever >102 Albuterol 2.5 mg 10/09/18 16:37 Ventolin 2.5 Mg/3 Ml Neb.Sharon* INH Q4H PRN SOB/WHEEZING Chlorhexidine Gluconate 15 ml 10/09/18 18:00 10/13/18 08:17 Peridex Mouth Wash 0.12%* TOPICAL 15 ml Q4H ABDIRASHID Administration Famotidine 20 mg 10/10/18 09:00 10/13/18 08:17 Pepcid Iv* IV SLOW PU 20 mg DAILY ABDIRASHID Administration Fentanyl Citrate 25 mcg 10/08/18 15:10 10/11/18 10:25 Fentanyl* IV SLOW PU 25 mcg Q1H PRN Administration PAIN Heparin Sodium (Porcine) 5,000 units 10/12/18 21:00 10/13/18 08:17 Heparin Vial(*) SUBCUT 5,000 units Q12HR ABDIRASHID Administration Propofol 100 mls @ 4.681 mls/hr 10/08/18 20:00 10/13/18 00:34 Diprivan* IV 4.681 mls/hr .(Initial Rate) ABDIRASHID Administration Protocol 10 MCG/KG/MIN Norepinephrine Bitartrate 8 mg 500 mls @ 50 mls/hr 10/10/18 03:03 10/12/18 20 :37 / Sodium Chloride IV 50 mls/hr Q10H ABDIRASHID Administration Protocol Piperacillin Sod/Tazobactam 100 mls @ 25 mls/hr 10/12/18 14:00 10/13/18 06:45 Sod 3.375 gm/ Sodium Chloride IVPB 25 mls/hr Q8H ABDIRASHID Administration Potassium Chloride 20 meq in 100 mls @ 50 mls/hr 10/13/18 10:00 Potassium Chloride 20 Meq/100 Ml Ivpremix* IV 10/13/18 13:59 Q2H ABDIRASHID Dextrose/Sodium Chloride 1,000 mls @ 75 mls/hr 10/13/18 09:35 D5w 1/2 Ns 1000 Ml Bag* IV PER RATE ABDIRASHID Levetiracetam 500 mg 10/08/18 21:00 10/13/18 08:17 Keppra Liq* PO 500 mg Q12H ABDIRASHID Administration Oseltamivir Phosphate 30 mg 10/08/18 16:00 10/13/18 08:17 Tamiflu Susp* Oralsyr PO 10/13/18 15:59 30 mg DAILY ABDIRASHID Administration Polyvinyl Alcohol 1 drop 10/13/18 09:37 Polyvinyl Alcohol 1.4% Opth* BOTH EYES Q2H PRN DRY EYE Vital Signs: Temp Pulse Resp BP SpO2 FiO2 98.4 F 86 24 95/50 94 30 10/13/18 07:45 10/13/18 07:47 10/13/18 07:47 10/09/18 20:45 10/13/18 07:47 10/13 07:47 Physical Exam: Gen: Pt is sedated HEENT: ETT+, erythema of rt eye and eyelid Lungs:Good a/e b/l, crackles+ Cardiac: S1, S2+, regular Abdomen: Soft, BS+ Extremities: Edema+, withdraws to pain Neuro: Sedated, unable to assess neuro status Fluid Balance (Past 24 Hours): I= 2632 O= 1123 Net 1509 Intake & Output 10/11/18 10/12/18 10/13/18 10/14/18 06:59 06:59 06:59 06:59 Intake Total 4275.5 1209.9 2632.3 64 Output Total 2185 1693 1123 50 Balance 2090.5 -483.1 1509.3 14 Weight 183 lb 10.321 oz 188 lb 7.924 oz Intake: IV Fluids 2258 609 748 D5W 1/2 NS 661 D5W 1/2 NS 20 meq KCL 1919 574 KCL 100 Normal Saline 49 35 87 zosyn 190 IVPB 505 99 211 KCL 86 Vancomycin 265 zosyn 154 99 211 Medicated IV 1512.5 255.9 937.3 CC - Norepinephrine/ 1379 147 708 Levophed Versed 17.5 33.2 127.9 propofol 116 75.7 101.4 IV Narcotic Infusion 246 428 64 Versed 246 428 64 Tube Feeding 78 Tube Feeding Flush Amount 130 0 Albumin 100 0 NG Tube Irrigate Amount 0 0 Output: NG Tube Drainage Amount 250 0 0 Urine 0 0 Ziegler 193 1693 1123 50 Liquid Stool 0 0 Labs: Laboratory Results - last 24 hr 10/12/18 10/12/18 10/12/18 12:30 12:30 12:30 WBC 7.6 RBC 3.00 L Hgb 8.0 L Hct 26 L MCV 87 MCH 27 MCHC 30 L RDW 19 H Plt Count 116 L MPV 9.5 Neut % (Auto) 83.8 Lymph % (Auto) 9.7 [place] % (Auto) 4.3 Eos % (Auto) 2.0 Baso % (Auto) 0.2 Absolute Neuts (auto) 6.4 Absolute Lymphs (auto) 0.7 L Absolute Monos (auto) 0.3 Absolute Eos (auto) 0.1 Absolute Basos (auto) 0 Absolute Nucleated RBC 0 Nucleated RBC % 0 INR (Anticoag Therapy) 0.98 APTT 31.0 Sodium 158 H* Potassium Chloride Carbon Dioxide Anion Gap BUN 49 H Creatinine 1.85 H Est GFR ( Amer) 31.7 Est GFR (Non-Af Amer) 26.2 BUN/Creatinine Ratio Glucose POC Glucose (mg/dL) Calcium Phosphorus Magnesium 10/12/18 10/13/18 10/13/18 20:45 04:09 05:45 WBC RBC Hgb Hct MCV MCH MCHC RDW Plt Count MPV Neut % (Auto) Lymph % (Auto) [place] % (Auto) Eos % (Auto) Baso % (Auto) Absolute Neuts (auto) Absolute Lymphs (auto) Absolute Monos (auto) Absolute Eos (auto) Absolute Basos (auto) Absolute Nucleated RBC Nucleated RBC % INR (Anticoag Therapy) APTT Sodium 159 H* Potassium 3.3 L Chloride 136 H Carbon Dioxide 16 L Anion Gap 7 BUN 42 H Creatinine 1.76 H Est GFR ( Amer) 33.6 Est GFR (Non-Af Amer) 27.8 BUN/Creatinine Ratio 23.9 H Glucose 111 H POC Glucose (mg/dL) 127 H 117 H Calcium 7.6 L Phosphorus 3.5 Magnesium 2.0 10/13/18 10/13/18 05:45 05:45 WBC 6.2 RBC 2.88 L Hgb 7.6 L Hct 25 L MCV 86 MCH 26 L MCHC 31 RDW 19 H Plt Count 118 L MPV 9.9 Neut % (Auto) Lymph % (Auto) [place] % (Auto) Eos % (Auto) Baso % (Auto) Absolute Neuts (auto) Absolute Lymphs (auto) Absolute Monos (auto) Absolute Eos (auto) Absolute Basos (auto) Absolute Nucleated RBC Nucleated RBC % INR (Anticoag Therapy) 1.02 APTT Sodium Potassium Chloride Carbon Dioxide Anion Gap BUN Creatinine Est GFR ( Amer) Est GFR (Non-Af Amer) BUN/Creatinine Ratio Glucose POC Glucose (mg/dL) Calcium Phosphorus Magnesium Studies: 10/08 - admitted for resp failure, septic shock 10/09 - stable, decreasing pressors slowly 10/10- On low dose Levo Remians on sedation with Versed and Propofol Had air leak through ETT, was replaced CXR 10/08 - ett above rubens, left effusion/atelectasis 10/08 CT brain pending officail read - no clear large acute pathology; previous Right sided area of hemorrhage with encephalomalacia+ 10/08 CT chest with small left basal atelectasis or small infiltrate; no sig effusion 10/08 CT abd/pelvis pending 10/09 cxr - bilateral infiltrates+, left>right TTE 10/08 - LVEF 60%, no diastolic dysfxn, no valvular abn, no effusion CXR10/11- ETT ~ 2cm above rubens, OGT in place, central line in place, air space opacities unchanged Nutrition: Tube feeds at 10cc/hr, tolerating well, also receiving free water, increased to 300cc q 8 hrs. 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 EMS called for respiratory distress, on ER arrival patient was hypotensive 60s , tachycardic 90-100s, in respiratory distress, febrile 104.8, sats 92% on arrival, placed on NRM. She initially arrived with DNR/DNI status ordered from previous records as per ER. Her son requested her to be full code. She was started on sepsis protocol fluid resuscitated, required pressors for BP support , started broad spectrum abx. 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 Will d/c Versed -sedation vacation today - metabolic encephalopathy sec to Sepsis, hypernatremia/COLBY -10/08 CT brain negative for acute pathology, noted chronic changes -neurochecks as per ICU policy -cont keppra for seizure proph 2/2 to previous ICH; Keppra 500mg liquid BID renal dosing -Delirium prec CVS- -septic shock; 2 to influenza B + aspiration pneumoina + Gram neg bacteremia -Titrate levophed to Maintain MAP>65, and SBP>90 -suspect nstemi from demand ischemia Resp- -intubated; AC 22/500/+8/45% -CXR reviewed- left basal atelectasis and small infiltrates -Wean Fio2 to keep sat>92% -Bronchodilators PRN, Aspiration prec, Pulmonary Toilet - Weaning trial today, plan for trach next week ID- Low grade temps -CT chest/CXr 10/08 small basal infiltrates+, Left>right -cxr 10/11 - bilateral infiltrates, L>R and small lt effusion -CT abd/pelvis 10/08 - fluid in colon+ -Influenza B+ swab -blood cx Proteus+ and aerococcus+ -repeat blood cultures negative -Zosyn (day#6), Vanc d/c -Completed Tamiflu 30mg GI- -Was NPO due to N/V on admission and billous output -OGT+ to suction; less bilious output noted -Tolerating PEG feeds at low rate along with free water and check for residuals , will increase once Levo dose is titrated down -loose stool++; fecal containment system -GI prophylaxis - h2b Renal- -COLBY; elevated BUN, clinically dry with Hypernatremia which is worsening; likely pre-renal azotemia from volume depletion, poor po intake and septic shock /bacteremia -Cr decreasing; good urine output -Replete electrolytes as needed - Will increase D51/2NS and free water for hypernatremia -strict I/O, replete to keep K>4, Mg>2 -ziegler as indicated Heme- anemia; stable -started heparin sq as no bleeding noted -DVT proph with SCD and heparin sq Endo- Maintain BG<200, insulin protocol as needed -BG stable Musculsk- pressure ulcer prophylaxis. Bedrest. Wounds- multiple DTIs on left posterior and open Stage II wounds; wound care Nutrition- NPO DVT prophylaxis: SCD/heparin sq GI prophylaxis: h2b Central Line: RIJ 10/08 Arterial Line: Right rad 10/08 Ziegler Catheter: yes Fecal containment system+ Disposition: Patient requires Critical Care/ICU for Resp failure req intubation , septic shock on pressors, COLBY Patient Clinical Status: critical, guarded Code Status: FULL CODE, awaiting further directive from patient hotel services sales representative Critical Care Time: 30 min
[2018-10-13] MEDS: D5W 1/2 NS 1000 ML BAG* 1,000 ML IV SCH (10:09)
[2018-10-13] MEDS: KCL 20 MEQ/100 ML IVPREMIX* 20 MEQ/100 ML BAG IV SCH ×2 (10:14→11:52)
[2018-10-13 15:40] LABS: Calcium 7.3 mg/dL (8.6-10.3)
[2018-10-13 15:46] LABS: BUN/Creatinine Ratio 22.4 (8-20); EGFR African American 34.1 (>60); EGFR Non-African American 28.2 (>60)
[2018-10-13] MEDS ORDERED: Vancomycin per Pharmacy* NOTE FOLLOW UP PRN (16:08)
[2018-10-13] MEDS: Norepinephrine VIAL* 8 MG in NS 0.9% 500 ML* 492 ML IV SCH ×3 (16:29→21:55)
[2018-10-13] MEDS ORDERED: Vancomycin(*) 1,250 MG in NS 0.9% 250 ML* 250 ML IVPB ONE (16:30)
[2018-10-13 17:24] LABS: Urine Potassium Concentration 37.8 mmol/L
[2018-10-13 17:25] LABS: Urine Appearance Turbid; Urine Bacteria Absent (Absent); Urine Bilirubin Negative (Negative); Urine Blood 3+ (Negative); Urine Color Amber; Urine Glucose Negative (Negative); Urine Ketones Negative (Negative); Urine Nitrite Negative (Negative); Urine Protein 2+(100 mg/dL) (Negative); Urine Red Blood Cell 3+(>10/hpf) (Absent); Urine Specific Gravity 1.017 (1.010-1.030); Urine Squamous Epithelial Cell Present (Absent); Urine Urobilinogen Negative (Negative); Urine White Blood Cell 3+(>20/hpf) (Absent)
[2018-10-13] MEDS: Artificial Tears* 15 ML BTL BOTH EYES PRN (20:02)
[2018-10-13] MEDS: Dexmedetomidine* 400 MCG in NS 0.9% 100 ML* 96 ML IVPB SCH (20:47)
[2018-10-14] MEDS: Artificial Tears* 15 ML BTL BOTH EYES PRN ×3 (02:36→21:07)
[2018-10-14] MEDS: Chlorhexidine MOUTHWASH 0.12%* 15 ML UDC TOPICAL SCH ×6 (02:36→21:00)
[2018-10-14 04:32] LABS: Hematocrit 25 % (33-41); Hemoglobin 7.6 g/dL (12.0-16.0); Mean Corpuscular HGB Conc 30 g/dL (31-36); Mean Corpuscular Hemoglobin 26 pg (27-31); Mean Corpuscular Volume 86 fL (80-97); Mean Platelet Volume 9.3 fL (7.4-10.4); Platelet Count 122 10^3/uL (150-450); Red Blood Count 2.93 10^6 /uL (3.70-4.87); Red Cell Distribution Width 19 % (10.5-15); White Blood Count 5.7 10^3/uL (3.5-10.8)
[2018-10-14 04:47] LABS: Vancomycin Random 22.4 mcg/mL
[2018-10-14 04:48] LABS: Calcium 7.3 mg/dL (8.6-10.3); EGFR African American 33.8 (>60); Potassium 3.6 mmol/L (3.5-5.0)
[2018-10-14] MEDS ORDERED: Vancomycin Random Level* NOTE FOLLOW UP SCH (06:00)
[2018-10-14] MEDS: Piperacillin/Tazobac ADVAN(*) 3.375 GM in NS 0.9% 100 ML* 100 ML IVPB SCH (06:32)
[2018-10-14] MEDS: Norepinephrine VIAL* 8 MG in NS 0.9% 500 ML* 492 ML IV SCH ×3 (07:33→16:38)
[2018-10-14] MEDS: Dexmedetomidine* 400 MCG in NS 0.9% 100 ML* 96 ML IVPB SCH ×3 (07:33→15:16)
[2018-10-14] MEDS: Midazolam IV for DRIP* 100 MG in NS 0.9% 100 ML* 80 ML IV SCH (08:03)
[2018-10-14] MEDS: Heparin VIAL(*) 5000 UNITS/ML VIAL (FIVE THOUSAND) SUBCUT SCH ×2 (08:55→21:00)
[2018-10-14] MEDS: Famotidine IV* 10 MG/ML 2 ML (20 mg) IV SLOW PU SCH (08:55)
[2018-10-14] MEDS: levETIRAcetam LIQ* 500 MG/5 ML UDC PO SCH ×2 (09:45→21:00)
--- NOTE | 2018-10-14 14:21 | PN ---
Date of Service: 10/14/18 - [facility] note Critical Care Services: Date of ICU admission: 10/08/18 Reason for ICU admission: Septic shock from possible aspiration PNA Date of intubation: 10/08/18 Pt seen and examined at bedside. Overnight events noted. Plan of care discussed with ICU team. Meds, labs,vitals reviewed Pt with deterioration in mental status, remains off sedation without much response. Euthermic now Afebrile, Hypernatremia persists. Acidosis is slightly worse Thick secretions through ETT, lessening UO slowed down slightly tolerating tube feeds Active Medications Generic Name Dose Route Start Last Admin Trade Name Freq PRN Reason Stop Dose Admin Acetaminophen 650 mg 10/08/18 12:17 Tylenol Adult Liq* PO Q4H PRN fever >102 Albuterol 2.5 mg 10/09/18 16:37 Ventolin 2.5 Mg/3 Ml Neb.Sharon* INH Q4H PRN SOB/WHEEZING Chlorhexidine Gluconate 15 ml 10/09/18 18:00 10/14/18 08:55 Peridex Mouth Wash 0.12%* TOPICAL 15 ml Q4H ABDIRASHID Administration Famotidine 20 mg 10/10/18 09:00 10/14/18 08:55 Pepcid Iv* IV SLOW PU 20 mg DAILY ABDIRASHID Administration Fentanyl Citrate 25 mcg 10/08/18 15:10 10/11/18 10:25 Fentanyl* IV SLOW PU 25 mcg Q1H PRN Administration PAIN Heparin Sodium (Porcine) 5,000 units 10/12/18 21:00 10/14/18 08:55 Heparin Vial(*) SUBCUT 5,000 units Q12HR ABDIRASHID Administration Propofol 100 mls @ 4.681 mls/hr 10/08/18 20:00 10/13/18 00:34 Diprivan* IV 4.681 mls/hr .(Initial Rate) ABDIRASHID Administration Protocol 10 MCG/KG/MIN Norepinephrine Bitartrate 8 mg 500 mls @ 50 mls/hr 10/10/18 03:03 10/14/18 07 :33 / Sodium Chloride IV Not Given Q10H ABDIRASHID Protocol Dextrose/Sodium Chloride 1,000 mls @ 75 mls/hr 10/13/18 09:35 10/13/18 10:09 D5w 1/2 Ns 1000 Ml Bag* IV 75 mls/hr PER RATE ABDIRASHID Administration Dexmedetomidine HCl 400 mcg/ 100 mls @ 10.5 mls/hr 10/13/18 20:30 10/14/18 09 :20 Sodium Chloride IVPB 6.3 mls/hr Q10H ABDIRASHID Administration Protocol 0.5 MCG/KG/HR Cefepime HCl 1 gm in 50 mls @ 100 mls/hr 10/14/18 14:00 Maxipime 1 Gm In Dextrose Duplex (*) IV Q12H ABDIRASHID Vancomycin HCl 750 mg/ Sodium 250 mls @ 166.667 mls/hr 10/14/18 17:00 Chloride IVPB 1700 ABDIRASHID Levetiracetam 500 mg 10/08/18 21:00 10/14/18 09:45 Keppra Liq* PO 500 mg Q12H ABDIRASHID Administration Pharmacy Consult 1 note 10/13/18 16:08 Vancomycin Per Pharmacy* FOLLOW UP . PRN PER PROTOCOL Pharmacy Profile Note 1 note 10/16/18 17:00 Vancomycin Trough Check FOLLOW UP 10/16/18 17:01 1700 ONE Polyvinyl Alcohol 1 drop 10/13/18 09:37 10/14/18 08:59 Polyvinyl Alcohol 1.4% Opth* BOTH EYES 1 drop Q2H PRN Administration DRY EYE Vital Signs: Temp Pulse Resp BP SpO2 FiO2 98.1 F 72 25 86/43 95 30 10/14/18 14:01 10/14/18 14:01 10/14/18 13:00 10/14/18 14:00 10/14/18 14:01 10/14 12:00 Physical Exam: Gen: pt in NAD HEENT: PERRLA, no JVD Lungs:Dimnished at bases, coarse BS+ Cardiac: S1, S2+, regular Abdomen: Soft, BS+, PEG+ Extremities: Edema + Neuro: Off sedation, has pupillary response and spontaneous resp, unable to perform full neuro exam given intubated status Fluid Balance (Past 24 Hours): I= 3969 O= 1037 Net 2932 Intake & Output 10/12/18 10/13/18 10/14/18 10/15/18 06:59 06:59 06:59 06:59 Intake Total 1209.9 2632.3 3969 40 Output Total 1693 1123 1037 430 Balance -483.1 1509.3 2932 -390 Weight 188 lb 7.924 oz 185 lb 3.013 oz 190 lb 4.143 oz Intake: IV Fluids 180 761 1089 D5W 1/2 NS 661 1495 D5W 1/2 NS 20 meq KCL 574 KCL 200 Normal Saline 35 87 Vancomycin 250 zosyn 199 IVPB 99 211 zosyn 99 211 Medicated IV 255.9 937.3 614 CC - Norepinephrine/ 147 708 614 Levophed Versed 33.2 127.9 propofol 75.7 101.4 IV Narcotic Infusion 246 428 64 Versed 246 428 64 Oral 0 Tube Feeding 78 247 Tube Feeding Flush Amount 130 900 40 Albumin 100 0 NG Tube Irrigate Amount 0 0 Output: NG Tube Drainage Amount 0 0 Urine 0 80 Ziegler 1693 1123 957 430 Liquid Stool 0 0 Other: Date of Last Bowel 10/13 Movement # Bowel Movements 1 Estimated Stool Amount Small Labs: Laboratory Results - last 24 hr 10/13/18 10/13/18 10/13/18 12:36 15:10 16:50 WBC RBC Hgb Hct MCV MCH MCHC RDW Plt Count MPV Patient Temperature ABG pH ABG pH (Temp Correct) ABG pCO2 ABG pCO2 (Temp Corrct ABG pO2 ABG pO2 (Temp Correct ABG HCO3 ABG O2 Saturation ABG Base Excess Respiration Rate O2 Delivery Device Ventilator Type Vent Mode FiO2 Inspiratory Time PEEP Pressure Support Pressure Control EPAP IPAP BiPAP Sodium 154 H Potassium 4.0 Chloride 135 H Carbon Dioxide 14 L* Anion Gap 5 BUN 39 H Creatinine 1.74 H Est GFR ( Amer) 34.1 Est GFR (Non-Af Amer) 28.2 BUN/Creatinine Ratio 22.4 H Glucose 127 H POC Glucose (mg/dL) 134 H Calcium 7.3 L Urine Color Urine Appearance Urine pH Ur Specific [place] Urine Protein Urine Ketones Urine Blood Urine Nitrate Urine Bilirubin Urine Urobilinogen Ur Leukocyte Esterase Urine WBC (Auto) Urine RBC (Auto) Ur Squamous Epith Cells Urine Bacteria Urine Yeast Urine Osmolality U Sodium Concentration 23 Urine Potassium 37.8 Ur Chloride Concentrat 38 Urine Glucose Random Vancomycin 10/13/18 10/13/18 10/13/18 16:50 16:50 17:10 WBC RBC Hgb Hct MCV MCH MCHC RDW Plt Count MPV Patient Temperature Not Reportable ABG pH 7.36 ABG pH (Temp Correct) Not Reportable ABG pCO2 23 L ABG pCO2 (Temp Corrct Not Reportable ABG pO2 98 ABG pO2 (Temp Correct Not Reportable ABG HCO3 16.8 L ABG O2 Saturation 99.3 H ABG Base Excess -10.4 L Respiration Rate 14 O2 Delivery Device vent Ventilator Type 450 Vent Mode cmv FiO2 30 Inspiratory Time Not Reportable PEEP 5 Pressure Support Not Reportable Pressure Control Not Reportable EPAP Not Reportable IPAP Not Reportable BiPAP Not Reportable Sodium Potassium Chloride Carbon Dioxide Anion Gap BUN Creatinine Est GFR ( Amer) Est GFR (Non-Af Amer) BUN/Creatinine Ratio Glucose POC Glucose (mg/dL) Calcium Urine Color Iman[place] Urine Appearance Turbid Urine pH 5.0 Ur Specific [place] 1.017 Urine Protein 2+(100 mg/dl) A Urine Ketones Negative Urine Blood 3+ A Urine Nitrate Negative Urine Bilirubin Negative Urine Urobilinogen Negative Ur Leukocyte Esterase 3+ A Urine WBC (Auto) 3+(>20/hpf) A Urine RBC (Auto) 3+(>10/hpf) A Ur Squamous Epith Cells Present A Urine Bacteria Absent Urine Yeast Present A Urine Osmolality 406 U Sodium Concentration Urine Potassium Ur Chloride Concentrat Urine Glucose Negative Random Vancomycin 10/13/18 10/14/18 10/14/18 20:00 04:12 04:12 WBC 5.7 RBC 2.93 L Hgb 7.6 L Hct 25 L MCV 86 MCH 26 L MCHC 30 L RDW 19 H Plt Count 122 L MPV 9.3 Patient Temperature ABG pH ABG pH (Temp Correct) ABG pCO2 ABG pCO2 (Temp Corrct ABG pO2 ABG pO2 (Temp Correct ABG HCO3 ABG O2 Saturation ABG Base Excess Respiration Rate O2 Delivery Device Ventilator Type Vent Mode FiO2 Inspiratory Time PEEP Pressure Support Pressure Control EPAP IPAP BiPAP Sodium 155 H Potassium 3.6 Chloride 135 H Carbon Dioxide 14 L* Anion Gap 6 BUN 35 H Creatinine 1.75 H Est GFR ( Amer) 33.8 Est GFR (Non-Af Amer) 28.0 BUN/Creatinine Ratio 20.0 Glucose 118 H POC Glucose (mg/dL) 138 H Calcium 7.3 L Urine Color Urine Appearance Urine pH Ur Specific [place] Urine Protein Urine Ketones Urine Blood Urine Nitrate Urine Bilirubin Urine Urobilinogen Ur Leukocyte Esterase Urine WBC (Auto) Urine RBC (Auto) Ur Squamous Epith Cells Urine Bacteria Urine Yeast Urine Osmolality U Sodium Concentration Urine Potassium Ur Chloride Concentrat Urine Glucose Random Vancomycin 22.4 10/14/18 13:07 WBC RBC Hgb Hct MCV MCH MCHC RDW Plt Count MPV Patient Temperature ABG pH ABG pH (Temp Correct) ABG pCO2 ABG pCO2 (Temp Corrct ABG pO2 ABG pO2 (Temp Correct ABG HCO3 ABG O2 Saturation ABG Base Excess Respiration Rate O2 Delivery Device Ventilator Type Vent Mode FiO2 Inspiratory Time PEEP Pressure Support Pressure Control EPAP IPAP BiPAP Sodium Potassium Chloride Carbon Dioxide Anion Gap BUN Creatinine Est GFR ( Amer) Est GFR (Non-Af Amer) BUN/Creatinine Ratio Glucose POC Glucose (mg/dL) 129 H Calcium Urine Color Urine Appearance Urine pH Ur Specific [place] Urine Protein Urine Ketones Urine Blood Urine Nitrate Urine Bilirubin Urine Urobilinogen Ur Leukocyte Esterase Urine WBC (Auto) Urine RBC (Auto) Ur Squamous Epith Cells Urine Bacteria Urine Yeast Urine Osmolality U Sodium Concentration Urine Potassium Ur Chloride Concentrat Urine Glucose Random Vancomycin Studies: No new studies Nutrition: Tube feeds, will advance rate Impression: 82 F w/pmhx of HTN, 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 EMS called for respiratory distress, found to be in septic shock sec to presumed PNA. Her bl cx were positive for Proteus, flu was positive on admission. She initially arrived with DNR/DNI status ordered from previous records as per ER. Her son requested her to be full code. She was started on sepsis protocol fluid resuscitated, required pressors for BP support, started broad spectrum abx. 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 - metabolic encephalopathy sec to Sepsis, acidosis, hypernatremia/COLBY -10/08 CT brain negative for acute pathology, noted chronic changes -neurochecks as per ICU policy -cont keppra for seizure proph 2/2 to previous ICH; Keppra 500mg liquid BID renal dosing -Delirium prec CVS- -septic shock; 2/2 to influenza B + aspiration pneumoina + Gram neg bacteremia _ Rpt cx negative to date -Titrate levophed to Maintain MAP>65, and SBP>90 -suspect nstemi from demand ischemia Resp- -intubated; AC 22/500/+8/30% -CXR- left basal atelectasis and small infiltrates -Wean Fio2 to keep sat>92% -Spontaneous breathing trial if tolerates -Bronchodilators PRN, Aspiration prec, Pulmonary Toilet - Weaning trial today, plan for trach if advance directives indicate ID- Low grade temps -CT chest/CXr 10/08 small basal infiltrates+, Left>right -cxr 10/11 - bilateral infiltrates, L>R and small lt effusion -CT abd/pelvis 10/08 - fluid in colon+ -Influenza B+ swab -blood cx Proteus+ and aerococcus+ -repeat blood cultures negative -Zosyn (day#7), Vanc d/c, will change to Cefepime given hypernatremia to complete 10 day course -Completed Tamiflu 30mg GI- -Was NPO due to N/V on admission and billous output -Tolerating PEG feeds, will increase rate to goal along with free water and check for residuals -loose stool++; fecal containment system -GI prophylaxis - h2b Renal- -COLBY; elevated BUN, clinically dry with Hypernatremia which is worsening; likely pre-renal azotemia from volume depletion, poor po intake and septic shock /bacteremia -Cr decreasing; good urine output -Replete electrolytes as needed - Will increase D51/2NS and free water for hypernatremia -strict I/O, replete to keep K>4, Mg>2 -ziegler as indicated Heme- anemia; stable -started heparin sq as no bleeding noted -DVT proph with SCD and heparin sq Endo- Maintain BG<200, insulin protocol as needed -BG stable Musculsk- pressure ulcer prophylaxis. Bedrest. 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
[2018-10-14] MEDS: Cefepime 1 GM in Dextrose(*) 1 GM/50 ML q12h (Duplex) IV SCH (14:24)
[2018-10-14] MEDS: Vancomycin(*) 750 MG in NS 0.9% 250 ML* 250 ML IVPB SCH (16:44)
[2018-10-14] MEDS: D5W 1/2 NS 1000 ML BAG* 1,000 ML IV SCH (19:41)
[2018-10-15] MEDS: Cefepime 1 GM in Dextrose(*) 1 GM/50 ML q12h (Duplex) IV SCH ×2 (01:58→14:18)
[2018-10-15] MEDS: Chlorhexidine MOUTHWASH 0.12%* 15 ML UDC TOPICAL SCH ×6 (01:58→22:02)
[2018-10-15] MEDS: Dexmedetomidine* 400 MCG in NS 0.9% 100 ML* 96 ML IVPB SCH ×3 (02:39→11:05)
[2018-10-15] MEDS: Norepinephrine VIAL* 8 MG in NS 0.9% 500 ML* 492 ML IV SCH ×2 (04:29→11:06)
[2018-10-15 04:55] LABS: Hematocrit 24 % (33-41); Hemoglobin 7.3 g/dL (12.0-16.0); Mean Corpuscular HGB Conc 30 g/dL (31-36); Mean Corpuscular Hemoglobin 26 pg (27-31); Mean Corpuscular Volume 87 fL (80-97); Platelet Count 124 10^3/uL (150-450); Red Blood Count 2.79 10^6 /uL (3.70-4.87); Red Cell Distribution Width 19 % (10.5-15); White Blood Count 5.5 10^3/uL (3.5-10.8)
[2018-10-15 05:11] LABS: BUN/Creatinine Ratio 19.2 (8-20); Calcium 7.4 mg/dL (8.6-10.3); EGFR African American 35.7 (>60); EGFR Non-African American 29.5 (>60); Potassium 3.4 mmol/L (3.5-5.0)
[2018-10-15] MEDS: Famotidine IV* 10 MG/ML 2 ML (20 mg) IV SLOW PU SCH (07:41)
[2018-10-15] MEDS: KCL 20 MEQ/100 ML IVPREMIX* 20 MEQ/100 ML BAG IV SCH ×2 (07:41→09:44)
[2018-10-15] MEDS: levETIRAcetam LIQ* 500 MG/5 ML UDC PO SCH ×2 (07:41→22:02)
[2018-10-15] MEDS: Heparin VIAL(*) 5000 UNITS/ML VIAL (FIVE THOUSAND) SUBCUT SCH ×2 (07:41→22:02)
[2018-10-15] MEDS: D5W 1/2 NS 1000 ML BAG* 1,000 ML IV SCH ×2 (07:43→22:07)
--- NOTE | 2018-10-15 16:25 | PN ---
Date of Service: 10/15/18 - [facility] note Critical Care Services: Date of ICU admission: 10/08/18 Reason for ICU admission: Septic shock from possible aspiration PNA Date of intubation: 10/08/18 Pt seen and examined at bedside. Overnight events noted. Plan of care discussed with ICU team. Meds, labs,vitals reviewed Pt in coma, remains off sedation without any response. Has pupillary and corneal reflex Hypernatremia improving. Acidosis is slightly worse. Will use bicar prn Thick secretions through ETT, lessening UO slowed down slightly tolerating tube feeds Active Medications Generic Name Dose Route Start Last Admin Trade Name Freq PRN Reason Stop Dose Admin Acetaminophen 650 mg 10/08/18 12:17 Tylenol Adult Liq* PO Q4H PRN fever >102 Albuterol 2.5 mg 10/09/18 16:37 Ventolin 2.5 Mg/3 Ml Neb.Sharon* INH Q4H PRN SOB/WHEEZING Chlorhexidine Gluconate 15 ml 10/09/18 18:00 10/15/18 14:18 Peridex Mouth Wash 0.12%* TOPICAL 15 ml Q4H ABDIRASHID Administration Famotidine 20 mg 10/10/18 09:00 10/15/18 07:41 Pepcid Iv* IV SLOW PU 20 mg DAILY ABDIRASHID Administration Heparin Sodium (Porcine) 5,000 units 10/12/18 21:00 10/15/18 07:41 Heparin Vial(*) SUBCUT 5,000 units Q12HR ABDIRASHID Administration Propofol 100 mls @ 4.681 mls/hr 10/08/18 20:00 10/13/18 00:34 Diprivan* IV 4.681 mls/hr .(Initial Rate) ABDIRASHID Administration Protocol 10 MCG/KG/MIN Norepinephrine Bitartrate 8 mg 500 mls @ 50 mls/hr 10/10/18 03:03 10/15/18 11 :06 / Sodium Chloride IV Not Given Q10H ABDIRASHID Protocol Dextrose/Sodium Chloride 1,000 mls @ 75 mls/hr 10/13/18 09:35 10/15/18 07:43 D5w 1/2 Ns 1000 Ml Bag* IV 75 mls/hr PER RATE ABDIRASHID Administration Dexmedetomidine HCl 400 mcg/ 100 mls @ 10.5 mls/hr 10/13/18 20:30 10/15/18 11 :05 Sodium Chloride IVPB Not Given Q10H ABDIRASHID Protocol 0.5 MCG/KG/HR Cefepime HCl 1 gm in 50 mls @ 100 mls/hr 10/14/18 14:00 10/15/18 14:18 Maxipime 1 Gm In Dextrose Duplex (*) IV 100 mls/hr Q12H ABDIRASHID Administration Vancomycin HCl 750 mg/ Sodium 250 mls @ 166.667 mls/hr 10/14/18 17:00 16:44 Chloride IVPB 166.667 mls/hr 1700 ABDIRASHID Administration Levetiracetam 500 mg 10/08/18 21:00 10/15/18 07:41 Keppra Liq* PO 500 mg Q12H ABDIRASHID Administration Pharmacy Consult 1 note 10/13/18 16:08 Vancomycin Per Pharmacy* FOLLOW UP . PRN PER PROTOCOL Pharmacy Profile Note 1 note 10/16/18 17:00 Vancomycin Trough Check FOLLOW UP 10/16/18 17:01 1700 ONE Polyvinyl Alcohol 1 drop 10/13/18 09:37 10/14/18 21:07 Polyvinyl Alcohol 1.4% Opth* BOTH EYES 1 drop Q2H PRN Administration DRY EYE Vital Signs: Temp Pulse Resp BP SpO2 FiO2 96.4 F 77 27 114/59 96 30 10/15/18 15:00 10/15/18 15:00 10/15/18 15:00 10/15/18 15:00 10/15/18 15:00 10/15 15:01 Physical Exam: Gen: Pt in NAD HEENT: ETT+ Lungs: Diminished air entry at bases Cardiac: S1, S+, regular Abdomen: Soft, slightly distended Extremities: Edema+ Neuro: Not responsive to painful stimuli, blinks eyes, has corneal reflex, has gag reflex Skin: Skin breakdown, multiple excoriations Fluid Balance (Past 24 Hours): I= 1015 O= 450 Net 565 Intake & Output 10/13/18 10/14/18 10/15/18 10/16/18 06:59 06:59 06:59 06:59 Intake Total 2632.3 3969 3646 1015 Output Total 1123 1037 1260 450 Balance 1509.3 2932 2386 565 Weight 185 lb 3.013 oz 190 lb 4.143 oz 190 lb 4.143 oz Intake: IV Fluids 748 2144 2031 871 ABX - CEFEPIME 50 D5W 1/2 NS 661 1495 1731 871 KCL 200 Normal Saline 87 Vancomycin 250 250 zosyn 199 IVPB 211 330 D5W 1/2 NS 330 zosyn 211 Medicated IV 937.3 614 499 144 CC - Dexmedetomidine/ 181 43 Precedex CC - Norepinephrine/ 708 614 318 101 Levophed Versed 127.9 propofol 101.4 IV Narcotic Infusion 428 64 Versed 428 64 Oral 0 0 Tube Feeding 78 247 146 Tube Feeding Flush Amount 130 900 640 Albumin 100 0 0 NG Tube Irrigate Amount 0 0 0 Output: NG Tube Drainage Amount 0 0 0 Urine 0 80 Ziegler 7328 554 6630 450 Liquid Stool 0 0 Other: Date of Last Bowel 10/1310/15/18 10/15/18 Movement # Bowel Movements 1 1 1 Estimated Stool Amount Small Medium Medium Labs: Laboratory Results - last 24 hr 10/14/18 10/15/18 10/15/18 19:56 04:43 04:43 WBC 5.5 RBC 2.79 L Hgb 7.3 L Hct 24 L MCV 87 MCH 26 L MCHC 30 L RDW 19 H Plt Count 124 L MPV 9.0 Sodium 152 H Potassium 3.4 L Chloride 134 H Carbon Dioxide 13 L* Anion Gap 5 BUN 32 H Creatinine 1.67 H Est GFR ( Amer) 35.7 Est GFR (Non-Af Amer) 29.5 BUN/Creatinine Ratio 19.2 Glucose 112 H POC Glucose (mg/dL) 125 H Calcium 7.4 L 10/15/18 12:45 WBC RBC Hgb Hct MCV MCH MCHC RDW Plt Count MPV Sodium Potassium Chloride Carbon Dioxide Anion Gap BUN Creatinine Est GFR ( Amer) Est GFR (Non-Af Amer) BUN/Creatinine Ratio Glucose POC Glucose (mg/dL) 143 H Calcium Studies: Brain CT: No acute changes Nutrition: Tube feeds Impression: 82 F w/pmhx of HTN, 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 EMS called for respiratory distress, found to be in septic shock sec to presumed PNA. Her bl cx were positive for Proteus, flu was positive on admission. She initially arrived with DNR/DNI status ordered from previous records as per ER. Her son requested her to be full code. She was started on sepsis protocol fluid resuscitated, required pressors for BP support, started broad spectrum abx. 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 - Coma:metabolic encephalopathy sec to Sepsis, acidosis, hypernatremia/COLBY versus hypoxic encephalopathy -10/08 CT brain negative for acute pathology, noted chronic changes - Rpt CT brain no acute findings -neurochecks as per ICU policy -cont keppra for seizure proph 2 to previous ICH; Keppra 500mg liquid BID renal dosing _ Will rpt EEG _ Neuro consult appreciated -Delirium prec CVS- -septic shock; 08/03 to influenza B + aspiration pneumoina + Gram neg bacteremia _ Still requiring Levophed -Titrate levophed to Maintain MAP>65, and SBP>90 -suspect nstemi from demand ischemia Resp- -intubated; AC 22/500/+8/30% -CXR- left basal atelectasis and small infiltrates -Wean Fio2 to keep sat>92% -Spontaneous breathing trial if tolerates, not able to currently given mental status changes -Bronchodilators PRN, Aspiration prec, Pulmonary Toilet - Weaning trial today, plan for trach if advance directives indicate ID- Low grade temps -CT chest/CXr 10/08 small basal infiltrates+, Left>right -cxr 10/11 - bilateral infiltrates, L>R and small lt effusion -CT abd/pelvis 10/08 - fluid in colon+ -Influenza B+ swab -blood cx Proteus+ and aerococcus+ -repeat blood cultures negative -Changed from Zosyn(received 7 days) to Cefepime (day#2/3) given hypernatremia, Vanc d/c -Completed Tamiflu 30mg GI- -Tolerating PEG feeds, will increase rate to goal along with free water and check for residuals -loose stool++; fecal containment system -GI prophylaxis - h2b Renal- -COLBY; elevated BUN, clinically dry though has anasarca due to hypoalbuminemia. Hypernatremia-improving; likely pre-renal azotemia from volume depletion, poor po intake and septic shock/bacteremia - Has acidosis worsening- RTA versus TypeB lactic acidosis. - Will order bicarb prn -Cr decreasing; good urine output -Replete electrolytes as needed - c/w D51/2NS and free water for hypernatremia -strict I/O, replete to keep K>4, Mg>2 -ziegler as indicated Heme- anemia; stable -started heparin sq as no bleeding noted -DVT proph with SCD and heparin sq Endo- Maintain BG<200, insulin protocol as needed -BG stable Musculsk- pressure ulcer prophylaxis. Bedrest. Wounds- multiple DTIs on left posterior and open Stage II wounds; wound care Nutrition- NPO DVT prophylaxis: SCD/heparin sq GI prophylaxis: h2b Central Line: RIJ 10/08 Arterial Line: Right rad 10/08, will need replacement/removal Ziegler Catheter: yes Fecal containment system+ Disposition: Patient requires Critical Care/ICU for Resp failure req intubation , septic shock on pressors, COLBY Patient Clinical Status: critical, guarded Code Status: FULL CODE, awaiting further directive from patient shipping services sales representative Critical Care Time: 30 min Awaiting family meeting for goals regarding care. Pt has not shown an improvement since admission and doubt if any meaningful recovery of neurological status
[2018-10-15] MEDS: Vancomycin(*) 750 MG in NS 0.9% 250 ML* 250 ML IVPB SCH (16:49)
--- NOTE | 2018-10-15 17:49 | CONS ---
CC: Dr. Swain * NEUROLOGY CONSULTATION: DATE OF CONSULT: 10/15/18 REFERRING PROVIDER: Mary Cazares NP LOCATION: She is an inpatient. CHIEF COMPLAINT: Unresponsiveness. HISTORY OF PRESENT ILLNESS: Jessica Soriano is an 82-year-old woman, who presented to the hospital via ambulance to the emergency room on 10/08/18. She was hypotensive and unresponsive and was intubated in the emergency room. She had multiple skin wounds and also apparently had feces on her skin. She was hypotensive and ultimately fit criteria for sepsis. She was on pressors, but those were stopped within the last 2 days. She remains unresponsive and so, I was asked to evaluate her. In reviewing the records when she came in, her blood pressure was 66/36. She remained hypotensive with blood pressures systolic near 70 and diastolic near 54 , pretty much into the evening of 10/08/18. By late 10/08/18, her blood pressures were up to 100 systolic and remained there as best as I can see. She had a temperature of 104.8 initially and she remained febrile alternating with hypothermia over the next days. Her oxygen saturations were well over 90% from when they were first recorded. Her initial blood gases were notable for acidosis with a pH initially of 7.17, which remained under 7.2 until the following day. Her initial PCO2 was 54 and has been below 50 since. Other pertinent initial laboratory studies were notable for hypernatremia with her initial sodium being 167, azotemia with initial BUN being 90, and her creatinine was elevated to 2.61 which has since come down to 1.67. She had normal renal function last August when she had blood work for some reason. She has remained intubated and pressors were discontinued about 2 days ago. She had a CT scan of the brain, which reveals encephalomalacia in the right frontal lobe from a prior intracranial hemorrhage. PAST MEDICAL HISTORY: Mainly notable for a right intracranial hemorrhage last year when she presented to the emergency room on 10/07/16. She underwent surgical evacuation of a large right frontal hematoma. Postoperatively, she had a dense left hemiparesis. She has reportedly been living at home with her son and her , who is healthcare proxy. Her reportedly recently broke his leg and is now on the surgical floor. According to hospital records, her past medical history is also notable for hypertension, percutaneous gastrostomy tube placed after her intracranial hemorrhage, no other past medical history in the records. MEDICATIONS: At home are reportedly: 1. Keppra 7.5 mL per G-tube every 12 hours. 2. Mirtazapine 7.5 mg per G-tube at bedtime. 3. Cozaar 50 mg per G-tube q. day. 4. Metoprolol 50 mg per G-tube q. day. 5. Cyclobenzaprine 10 mg per G-tube q.h.s. Current medications include: 1. Albuterol inhaler p.r.n. wheezing. 2. Cefepime 1 g IV q.12 hours. 3. Famotidine 20 mg IV q. day. 4. Heparin 5000 units subcutaneous q.12 hours. 5. Keppra 500 mg per G-tube q.12 hours. 6. Vancomycin per pharmacy. ALLERGIES: According to computer records, she does not have any allergies. PHYSICAL EXAM: She is an elderly pale woman, lying in her intensive care unit bed. Temperature is 96.4 by Serrano probe, most recent blood pressure 114/59, heart rate in the 70s and in sinus on the monitor. Respiratory rate is about 30 and oxygen saturation is 96% on 30% FiO2. She reportedly has multiple skin wounds which are bandaged, which I did not unbandage. Heart tones are distant, but I do not hear any murmurs. I do not hear cervical bruits either. She is intubated. Neurological Exam: Pupils are about 4 to 4.5 mm and react to light down to about 3 mm. She has a left gaze preference. She blinks intermittently when stimulated, but does not consistently respond to visual threat. She does not seem to focus on anything. Facial musculature reveals bifacial weakness. There is no grimacing to any stimulus including deep nail bed pressure on all limbs, sternal rub, and supraorbital pressure. There are occasional weak mouth movements in a somewhat chewing type of pattern. I cannot get any corneal reflexes. On motor exam, she is flaccid. She has contractures of the left arm and left leg. She has a 90-degree contracture of the right ankle. She has no spontaneous movements. She has no movements to deep pain in the nail beds of any limb, sternal rub, or supraorbital pressure. She is areflexic. DIAGNOSTIC STUDIES/LAB DATA: Additional laboratory data includes a CT scan of the brain done earlier today as well as comparison to one from 10/08/16. There is encephalomalacia of the right frontal hemisphere and diffuse atrophy. There is no change from 10/08/18 CT scan to 10/15/18 scan. I reviewed her prior scan from 2017, which revealed a large right frontal subcortical hematoma with intraventricular extension. Other recent laboratory data includes a CBC with white blood cell count 5.5, hemoglobin 7.3, platelets 124,000. Most recent blood gas, 10/13/18, pH 7.36, PCO2 of 23, PO2 of 98. Most recent electrolytes, sodium 152, carbon dioxide 13 , BUN 32, creatinine 1.67. Glucose is 112 earlier today, calcium 7.4, albumin was 1.7 on 10/11/18. Ammonia level was 83 on 10/08/18 and has not been rechecked. Liver enzymes are normal. Vitamin B12 level on 10/08/18 was 397, folate greater than 20, TSH 1.39. IMPRESSION AND PLAN: Impression is that of coma, probably secondary to septic encephalopathy and hypotension. 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 She has not been on any sedatives for about 48 hours. Prognosis for any meaningful recovery is very very poor. I cannot rule out the possibility of further recovery as it has been just about 7 days since her presentation. Recommend checking an EEG to make sure she is not having any active epileptiform discharges. I will check her Keppra level and also repeat her ammonia level. I have discussed my impression with SKY Pavon and Dr. Swain. I will continue to follow her along with you. [id number]/[facility] #: [id number] [facility]ITAL[facility]
[2018-10-16] MEDS: Cefepime 1 GM in Dextrose(*) 1 GM/50 ML q12h (Duplex) IV SCH ×2 (02:35→14:23)
[2018-10-16] MEDS: Chlorhexidine MOUTHWASH 0.12%* 15 ML UDC TOPICAL SCH ×5 (02:39→17:54)
[2018-10-16] MEDS: Dexmedetomidine* 400 MCG in NS 0.9% 100 ML* 96 ML IVPB SCH ×2 (03:31→08:01)
[2018-10-16] MEDS: Norepinephrine 16MCG/ML IVPRE* 4,000 MCG/250 ML BAG IV SCH ×2 (05:49→16:19)
[2018-10-16] MEDS: Norepinephrine VIAL* 8 MG in NS 0.9% 500 ML* 492 ML IV SCH (07:41)
[2018-10-16] MEDS: levETIRAcetam LIQ* 500 MG/5 ML UDC PO SCH (08:38)
[2018-10-16] MEDS: Famotidine IV* 10 MG/ML 2 ML (20 mg) IV SLOW PU SCH (08:38)
[2018-10-16] MEDS: Heparin VIAL(*) 5000 UNITS/ML VIAL (FIVE THOUSAND) SUBCUT SCH (08:38)
--- NOTE | 2018-10-16 11:23 | EEG ---
ELECTROENCEPHALOGRAM: DATE OF STUDY: 10/15/18 - ROOM #ICU-05 REFERRING PHYSICIAN: Dr. Weir. LOCATION: She is an inpatient in ICU. CLINICAL PROBLEM: The patient presented in septic shock on 10/08/18. The patient has been unresponsive even after removing sedation on 10/13/18. There is a history of a prior right hemisphere intracranial hemorrhage. MEDICATIONS: Include: 1. Famotidine. 2. Levophed. 3. Precedex. 4. Levetiracetam. 5. Heparin. 6. Vancomycin. REPORT: This 19-channel EEG is remarkable for background rhythms consist of diffuse suppression of background activity. Very low amplitude activity seen diffusely from the right hemisphere. Low-amplitude alpha rhythm and intermixed beta rhythms are seen diffusely from the left hemisphere. There is occasional ventilator artifact. There is no evidence of sleep stages or reactivity. There are no clinical events. There are no focal or epileptiform abnormalities. CLINICAL PROBLEM: Abnormal EEG due to superior depression and disorganization of background rhythms, worse in the right hemisphere than the left. This tracing is compatible with severe diffuse cerebral dysfunction, worse in the right hemisphere. There are no epileptiform features to this recording. [id number]/[facility] #: [id number] [facility]
[2018-10-16] MEDS: D5W 1/2 NS 1000 ML BAG* 1,000 ML IV SCH (12:18)
[2018-10-16 12:26] LABS: Calcium 7.9 mg/dL (8.6-10.3); EGFR African American 37.8 (>60); EGFR Non-African American 31.2 (>60); Potassium 3.4 mmol/L (3.5-5.0)
--- NOTE | 2018-10-16 16:42 | PN ---
Subjective Date of Service: 10/16/18 Interval History: Ms. Soriano is an 82 yo female with PMH significant for HTN, CVA with left UE residual weakness, and S/P peg tube with tube feeding. Noted to be breathing faster by family and was brought to the emergency room for evaluation. She was found to have acute hypoxic and hypercarbic respiratory failure, severe sepsis with shock, bilateral pneumonia suspected to be secondary aspiration etiology, proteus bacteremia, Influenza B, metabolic encephalopathy, COLBY, hypernatremia, and anemia. She is currently intubated and sedated in the ICU. She presented to the hospital with multiple areas of skin breakdown and deep tissue injuries from home. There was a family meeting today and the family is discussing possibility of withdrawing care, no decisions have been made at the time of this visit. Patient seen and examined at bedside, unable to perform review of systems due to patient being sedated and intubated. Family History: Unchanged from Admission Social History: Unchanged from Admission Past Medical History: Unchanged from Admission Objective Active Medications: Acetaminophen (Tylenol Adult Liq*) 650 mg PO Q4H PRN Reason: fever >102 Albuterol (Ventolin 2.5 Mg/3 Ml Neb.Sharon*) 2.5 mg INH Q4H PRN Reason: SOB/ WHEEZING Chlorhexidine Gluconate (Peridex Mouth Wash 0.12%*) 15 ml TOPICAL Q4H ABDIRASHID Famotidine (Pepcid Iv*) 20 mg IV SLOW PU DAILY ABDIRASHID Heparin Sodium (Porcine) (Heparin Vial(*)) 5,000 units SUBCUT Q12HR ABDIRASHID Propofol (Diprivan*) 100 mls @ 4.681 mls/hr IV .(Initial Rate) ABDIRASHID; Protocol Dextrose/Sodium Chloride (D5w 1/2 Ns 1000 Ml Bag*) 1,000 mls @ 75 mls/hr IV PER RATE ABDIRASHID Dexmedetomidine HCl 400 mcg/ (Sodium Chloride) 100 mls @ 10.5 mls/hr IVPB Q10H ABDIRASHID; Protocol Cefepime HCl (Maxipime 1 Gm In Dextrose Duplex (*)) 1 gm in 50 mls @ 100 mls/ hr IV Q12H ABDIRASHID Vancomycin HCl 750 mg/ Sodium (Chloride) 250 mls @ 166.667 mls/hr IVPB 1700 ABDIRASHID Norepinephrine Bitartrate (Levophed 16 Mcg/Ml Premix Bag*) 4,000 mcg in 250 mls @ 18.75 mls/hr IV Q13H ABDIRASHID; Protocol Hydromorphone HCl (Dilaudid Punchboard Filling Machine Operator *High Dose*) 100 mg in 20 mls @ 0 mls/hr LETTERSET PRESS SET UP OPERATOR .change Q24H ABDIRASHID; Protocol Levetiracetam (Keppra Liq*) 500 mg PO Q12H ABDIRASHID Pharmacy Consult (Vancomycin Per Pharmacy*) 1 note FOLLOW UP . PRN Pharmacy Profile Note (Vancomycin Trough Check) 1 note FOLLOW UP 1700 ONE Stop: 10/16/18 17:01 Polyvinyl Alcohol (Polyvinyl Alcohol 1.4% Opth*) 1 drop BOTH EYES Q2H PRN Reason: DRY EYE Vital Signs 10/16/18 10/16/18 10/16/18 15:30 15:45 16:00 Temperature 97.3 F 97.5 F 97.5 F Pulse Rate 71 73 76 Respiratory 25 Rate Blood Pressure 112/57 108/51 111/56 (mmHg) O2 Sat by Pulse 95 94 99 Oximetry Oxygen Devices in Use Now: Endotracheal Tube, Mechanical Ventilator Appearance: NAD, laying in bed Ears/Nose/Mouth/Throat: Mucous Membranes Moist Skin: - - See skin note below Lines/Tubes/Other Access: Clean, Dry and Intact Endotracheal Tube Result Diagrams: 10/15/18 04:43 10/16/18 11:47 Microbiology and Other Data: Microbiology 10/13/18 15:49 Aerobic Blood Culture - Preliminary Blood Line No Growth Day 2 Anaerobic Blood Culture - Preliminary No Growth Day 2 10/10/18 14:13 Aerobic Blood Culture - Final Blood Arterial No Growth Day 5 Anaerobic Blood Culture - Final Staphylococcus Epidermidis Blood MRSA/MSSA (PCR) - Final Mrsa Negative S.aureus Negative 10/10/18 13:00 Aerobic Blood Culture - Final Blood Arterial Not Reportable Anaerobic Blood Culture - Final Not Reportable Blood Culture - Final No Growth Day 5 10/13/18 21:15 Gram Stain - Final Sputum Sputum Culture - Final YEAST 10/13/18 00:11 Gram Stain - Final Sputum Induced Sputum Culture - Final YEAST 10/13/18 16:50 Urine Culture - Final Urine No Growth (<1,000 CFU/mL) 10/08/18 20:20 Aerobic Blood Culture - Final Blood Venous No Growth Day 5 Anaerobic Blood Culture - Final No Growth Day 5 10/08/18 10:51 Aerobic Blood Culture - Final Blood Venous Aerococcus Viridans Anaerobic Blood Culture - Final Proteus Mirabilis Blood MRSA/MSSA (PCR) - Final Mrsa Negative S.aureus Negative 10/08/18 12:08 Urine Culture - Final Urine No Growth (<1,000 CFU/mL) 10/08/18 14:03 Nasal Screen MRSA (PCR) - Final Nasal Mrsa Not Detected 10/08/18 12:08 Legionella Urinary Antigen - Final Urine Negative Legionella Antigen Streptococcus pneumoniae Ag Screen - Final Negative S. pneumo Antigen Skin Deviation Note - Skin Deviation Findings Left medial wrist - The skin is intact with dark discoloration, there is a superficial open area at about 7-8 o'clock. Some of the edges of the wound are scabbing. The surrounding skin is intact with mild erythema. The wound measures 2.5 cm x 2.7 cm x 0.1 cm. Left lower medial leg - The wound measures 6 cm x 2.5 cm x 0.1 cm. There is an unstageable wound with white and minaya colored eschar. The surrounding skin has some erythema. No drainage noted. Left upper shoulder - There is a superficial open area, measuring 2 cm x 3 cm x 0.1 cm. The wound base is pink. The surrounding skin is intact. There is a small amount of serous drainage noted. Left lateral back/flank - There are 2 areas with purplish discoloration and superficial skin opening. The more proximal wound measures, 6 cm x 8 cm x 0.1 cm. The surrounding skin is intact, there is no drainage noted. The distal cluster of wounds measures, 2.5 cm x 10.5 cm x 0.1 cm. The wound bases are pink and also have purplish discoloration. The surrounding skin is intact, no drainage noted. Buttocks - Skin is intact, there is some discoloration with areas with a whitish discoloration and some purplish discoloration. Left lateral hip - The wound is unstageable, with superficial open areas surrounding the wound. The center of the wound measures 4 cm x 5 cm, this area is dark colored tissue that is soft to touch. The total wound measures 5.5 cm x 10 cm x 0.1 cm. The outer wound base is pink. The surrounding skin is intact. There is some serous drainage noted on the old dressing. Left lateral LE (at the knee) - There is a superficial open area, measuring 2.3 cm x 2.5 cm x 0.1 cm. The wound base is pink, the surrounding skin is intact. There is no drainage noted. Right medial lower leg - The wound measures 4 cm x 2 cm. The skin is intact, there is a small amount of drainage on the old dressing. The surrounding skin is intact. Not pictured: Left outer ear - Wound measures, 1 cm x 0.7 cm x 0.1 cm. The wound base is scabbed. The surrounding tissue is intact, no drainage noted. Left lateral lower lip - Wound measures 0.5 cm x 0.5 cm x 0.1 cm. The wound base is scabbed, surrounding skin intact. Assessment/Plan: Ms. Soriano is an 82 yo female with PMH significant for HTN, CVA with left UE residual weakness, and S/P peg tube with tube feeding. Noted to be breathing faster by family and was brought to the emergency room for evaluation. She was found to have acute hypoxic and hypercarbic respiratory failure, severe sepsis with shock, bilateral pneumonia suspected to be secondary aspiration etiology, proteus bacteremia, Influenza B, metabolic encephalopathy, COLBY, hypernatremia, and anemia. She is currently intubated and sedated in the ICU. She presented to the hospital with multiple areas of skin breakdown and deep tissue injury from home. 1. Left wrist wound. Suspect this is a stage 2 pressure injury with associated deep tissue injury secondary to left arm contracture. Recommend leaving the area open to air and pressure relieving measures. 2. Multiple superficial open areas and deep tissue injury - Recommend Optifoam dressings to the open areas and change every 3 days. Frequent turning and repositioning. Discontinue Optifoam dressings on the intact skin. Consider checking a prealbumin to evaluate nutritional status. 3. legislative advocate associated pressure injury. There is a medical technologist microbiology associated pressure injury to the left lower lip. Monitor placement of ET tube to made sure pressure is not on the lips or tongue. 4. Unstageable pressure injuries. Continue pressure receiving measures with frequent turning and repositioning. 5. History of CVA with left sided weakness. 6. Diet. Tube feeding 7. Code Status. Full code 8. Disposition. Inpatient, disposition per primary medicine team TIME SPENT. Time for this wound consultation was 35 minutes and 25 minutes was spent assessing, measuring and photographing the wounds. Wound Problem/Plan Is Patient a Wound Clinic Patient: No Attending: Emy Ribera
[2018-10-16] MEDS ORDERED: HYDROmorphone PCA *HIGH DOSE* 100 MG/20 ML PCA.SYRING PCA SCH (17:00)
[2018-10-16] MEDS ORDERED: HYDROmorphone PCA* 20 MG/20 ML PCA.SYRING PCA SCH (17:00)
[2018-10-16] MEDS ORDERED: Vancomycin Trough Check NOTE FOLLOW UP ONE (17:00)
--- NOTE | 2018-10-16 17:10 | PN ---
Hospitalist Progress Note Date of Service: 10/16/18 Family meeting with Alicia (sister in law) and Med (son) regarding goals of care and patient status. Explained in detail with Dr. Swain that patient is in persistent coma and not responding to any stimuli, remains on pressors, can initiate breathe over the vent but cannot achieve volumes. Reviewed EEG and CT scan with Dr. Weir of neurology and agree prognosis remains poor, this was also explained in detail. Patient has has persistent decline in the last few days in particular. Initially Med refused to discuss reversal of DNR and the initiation of comfort measures and seemed defensive about the process. Reassurance was provided, all questions were answered to the best of our ability. Recommendations were made for comfort and withdrawal of care, however Med seemed disinclined to make any decision today. He also told the group we were not allowed to speak to the patient's Duy regarding her condition. It is noted that the patient's gave his son Med decision- making power over Jessica's care. The group agreed to let family further discuss the situation and would reconvene tomorrow. Several hours after family meeting I was approached by Alicia (sister in law) and she stated that Med and Duy spoke at length and they are will to let Alicia naturally and no longer suffer. I explained the comfort process in detail, including pain control, withdrawal of lines and drips and eventual removal of ET tube and turning the ventilator off. Alicia noted her understanding of the process and has agreed to communicate with Med that he will need to update Jessica's MOLST and change to DNR. I also requested that Alicia notify any family to come visit before care is withdrawn and to bring Duy to visit if he chooses. Plan discussed with primary RN, Dr. Swain and charge nurse.
[2018-10-16] MEDS: Vancomycin(*) 750 MG in NS 0.9% 250 ML* 250 ML IVPB SCH (17:54)
[2018-10-16] MEDS ORDERED: Morphine 4 MG/ML VIAL (1 ml) 4 MG/ML VIAL ONE (17:56)
[2018-10-16] MEDS ORDERED: Morphine 10 MG/ML VIAL (1 ml) ONE (18:00)
[2018-10-16] MEDS: Morphine 10 MG/ML VIAL (1 ml) IV SCH ×5 (18:02→20:19)
[2018-10-16] MEDS: Morphine 10 MG/ML VIAL (1 ml) IV PRN ×2 (21:19→22:13)
[2018-10-17 01:09] VITALS: BP 52/28
--- NOTE | 2018-10-17 10:48 | DS ---
SUMMARY: DATE OF ADMISSION: 10/08/18 DATE OF DISCHARGE: 10/17/18 DIAGNOSES: As follows: 1. Sepsis secondary to aspiration pneumonia. 2. Coma likely due to encephalopathy secondary to sepsis versus hypoxic encephalopathy. 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 On the day of admission, the son noticed that she was breathing faster and her belly was not normal. There were also some concerns that visiting nurse services were declined by patient's son. She was found to be tachycardic in respiratory distress with a high fever of 104.8 degrees, saturating at 92%. She was admitted for acute encephalopathy likely secondary to either hypoxic encephalopathy versus metabolic encephalopathy. She had initially been placed on pressors and has been seen subsequently by Neurology and despite full code and full medical therapy as requested by her son , her status deteriorated and was made comfort measures only on 10/16/18. She at 1:37 a.m. on 10/17/18. PHYSICAL EXAMINATION: HEENT: Pupils nonreactive to light. There are no pulses detectable on the bilateral carotids, bilateral radial pulses and dorsalis pedis as well as femoral pulses. Heart: No heart sounds are appreciated. Chest: No audible breathing sounds or visible changes in chest volume seen. No spontaneous breathing. [id number]/[facility] #: [id number] [facility]
== END 2018-10-17 01:37 | disposition expired | DRG 870 ==
LOC: ED 09:49 → ICU 12:09
PROVIDERS: ADMIT Internal Medicine Critical Care Medicine; ATTEND Student in an Organized Health Care Education/Training Program
PROC: 3E033XZ Introduction of Vasopressor into Peripheral Vein, Percutaneous Approach (ICD-10-PCS; principal; 2018-10-08)
PROC: 5A1955Z Respiratory Ventilation, Greater than 96 Consecutive Hours (ICD-10-PCS; 2018-10-08)
PROC: 0BH17EZ Insertion of Endotracheal Airway into Trachea, Via Natural or Artificial Opening (ICD-10-PCS; 2018-10-08)
PROC: 02HV33Z Insertion of Infusion Device into Superior Vena Cava, Percutaneous Approach (ICD-10-PCS; 2018-10-08)
PROC: 4A10X4Z Monitoring of Central Nervous Electrical Activity, External Approach (ICD-10-PCS; 2018-10-15)
DX: A41.50 Gram-negative sepsis, unspecified (principal); J69.0 Pneumonitis due to inhalation of food and vomit; J96.22 Acute and chronic respiratory failure with hypercapnia; J96.21 Acute and chronic respiratory failure with hypoxia; R65.21 Severe sepsis with septic shock; G93.41 Metabolic encephalopathy; R40.2314 Coma scale, best motor response, none, 24 hours or more after hospital admission; R40.2114 Coma scale, eyes open, never, 24 hours or more after hospital admission; R40.2214 Coma scale, best verbal response, none, 24 hours or more after hospital admission; R40.20 Unspecified coma; N17.9 Acute kidney failure, unspecified; E87.0 Hyperosmolality and hypernatremia; G81.94 Hemiplegia, unspecified affecting left nondominant side; E87.2 Acidosis; I10 Essential (primary) hypertension; J30.2 Other seasonal allergic rhinitis; F32.9 Major depressive disorder, single episode, unspecified; I49.3 Ventricular premature depolarization; J10.1 Influenza due to other identified influenza virus with other respiratory manifestations; D64.9 Anemia, unspecified; I67.9 Cerebrovascular disease, unspecified; L89.892 Pressure ulcer of other site, stage 2; Z82.49 Family history of ischemic heart disease and other diseases of the circulatory system; Z93.1 Gastrostomy status; Z86.73 Personal history of transient ischemic attack (TIA), and cerebral infarction without residual deficits
CPT/HCPCS: 36415; 36600; 70450; 71045; 71250; 74176; 80048; 80053; 80076; 80177; 80202; 80329; 81003; 81015; 82140; 82436; 82533; 82550; 82565; 82570; 82607; 82728; 82746; 82803; 83036; 83540; 83550; 83605; 83615; 83735; 83880; 83935; 84100; 84133; 84145; 84300; 84443; 84484; 84520; 85014; 85018; 85025; 85027; 85384; 85610; 85730; 86140; 86850; 86900; 86901; 87040; 87070; 87077; 87086; 87150; 87186; 87205; 87641; 87899; 93005; 93306; 94003; 95822; 99285; A9270-GY; C8929; G0480; G9019; J0171; J0610; J0692; J1170; J1644; J2250; J2270; J2543; J2704; J3010; J3370; J3475; J3480; J7060; P9047